=== PATIENT | male | born 1945 | race Caucasian/White ===

== ENCOUNTER 2017-08-29 03:12 | Inpatient (IN) | payer MEDICARE, MEDICAID ==
[2017-08-29] MEDS ORDERED: FUROSEMIDE INJ/PF 40 MG/4 ML SDV IV ONE (04:13)
[2017-08-29] MEDS ORDERED: OXYCODONE-ACETAMINOPHEN 5-325 MG TABLET PO ONE (04:13)
--- NOTE | 2017-08-29 04:18 | ER Document Report ---
ED General - General Chief Complaint: Swelling of Lower Extremity Stated Complaint: SWELLING Time Seen by Provider: 08/29/17 03:58 Notes: Patient is a 72-year-old male who presents with complaint of diffuse edema. Family says he first noticed that he was developing some edema around Father's Day but in the last couple days it has become severe. Today at this point where he is feeling short of breath and cannot lay down. She wears III and F liters of oxygen at home. When he arrived he was breathing heavily with that therefore his oxygen was increased and this is helped some. He did see his [employer] leadership yesterday morning, Dr. Guardado, who gave him some sort of "shot" . He is unsure what it is. He status post help with his edema but he is only gotten worse. Spine care doctor is Dr. Bennett. Denies any fevers or infections. Said tonight he woke up after nap and had a headache. He does take oxycodone 3 times a day but did not take it since this morning. He is also short of breath when he woke up. Suspect he is most likely hypoxic at that time. He denies any focal weakness or numbness. He complains of some indigestion and epigastric abdominal pain which she has had for a long time. He also has constipation. No previous history of PE and DVT. TRAVEL OUTSIDE OF THE [place] IN LAST 30 DAYS: No - Related Data Allergies/Adverse Reactions: strawberry [[place]] Allergy (Unknown, Verified 10/31/13 08:36) morphine [Morphine] Adverse Reaction (Mild, Verified 10/31/13 08:36) redness to face Past Medical History - Social History Smoking Status: Never Smoker Chew tobacco use (# tins/day): No Frequency of alcohol use: None Drug Abuse: None Family History: Reviewed & Not Pertinent Patient has suicidal ideation: No Patient has homicidal ideation: No - Past Medical History Cardiac Medical History: Reports: Hx Congestive Heart Failure, Hx Hypertension Denies: Hx Heart Attack Pulmonary Medical History: Reports: Hx COPD Denies: Hx Asthma, Hx Tuberculosis Neurological Medical History: Denies: Hx Cerebrovascular Accident, Hx Seizures Renal/ Medical History: Denies: Hx Peritoneal Dialysis GI Medical History: Reports: Hx Gastroesophageal Reflux Disease. Denies: Hx Hepatitis, Hx Hiatal Hernia, Hx Ulcer Psychiatric Medical History: Denies: Hx Depression Infectious Medical History: Denies: Hx Hepatitis Past Surgical History: Reports: Hx Vascular Surgery - filter for DVt. Denies: Hx Open Heart Surgery, Hx Pacemaker - Immunizations Hx Diphtheria, Pertussis, Tetanus Vaccination: Yes Hx Pneumococcal Vaccination: 12/18/12 Review of Systems - Review of Systems Notes: My Normal Review Basic REVIEW OF SYSTEMS: CONSTITUTIONAL : Denies fever, chills, or sweats. Denies recent illness. EENT: Denies eye, ear, throat, or mouth pain or symptoms. Denies nasal or sinus congestion. CARDIOVASCULAR: Denies chest pain. RESPIRATORY: Denies cough, cold, or chest congestion. Denies shortness of breath, difficulty breathing, or wheezing. GASTROINTESTINAL: Chronic epigastric abdominal pain. Denies nausea, vomiting, or diarrhea. GENITOURINARY: Denies difficulty urinating, painful urination, burning, frequency, or blood in urine. FEMALE GENITOURINARY: Denies vaginal bleeding, abnormal or irregular periods. MUSCULOSKELETAL: Edema in extremities. SKIN: Denies rash or skin lesions. NEUROLOGICAL: Denies altered mental status or loss of consciousness. Denies headache. Denies weakness or paralysis or loss of use of either side. Denies problems with gait or speech. Denies sensory or motor loss. ALL OTHER SYSTEMS REVIEWED AND NEGATIVE. Physical Exam - Vital signs Vitals: Resp Pulse Ox 16 96 08/29/17 03:33 08/29/17 03:33 - Notes Notes: General Appearance: Well nourished, alert, cooperative, no acute distress, no obvious discomfort. Vitals: reviewed, See vital signs table. Head: no swelling or tenderness to the head Eyes: PERRL, EOMI, Conjuctiva clear Mouth: No decreasd moisture Lungs: No wheezing, bilateral basal rales worse in the left side., No rhonci, No accessory muscle use, good air exchange bilaterally. Heart: Normal rate, Regular rythm, No murmur, no rub Abdomen: Normal BS, soft, No rigidity, obese abdomen with mild epigastric pain palpation., No guarding, no rebound, no abdominal masses, no organomegaly Extremities: strength 5/5 in all extremities, good pulses in all extremities, no swelling or tenderness in the extremities, 3+ bilateral lower extremity edema. Skin: warm, dry, appropriate color, no rash Neuro: speech clear, oriented x 3, normal affect, responds appropriately to questions. Course - Re-evaluation Re-evalutation: 08/29/17 05:29 Patient has significant edema causing him to require lower oxygen demand. I did give the patient dose of Lasix. He has been urinating quite a bit since then. Still has a very large amount of edema. I did speak with Dr. Bennett, his primary care physician, who agrees to admit the patient. Patient has normal cardiac enzymes. His EKG does not show any concerning findings. Chest x-ray is read as atelectasis however the patient has a lot of rales on lung auscultation to me appears he has more pulmonary vascular congestion on chest x- ray comparison to his previous x-rays. Patient does have history of DVT and is no longer anticoagulation. I suspect that his edema is related to fluid overload however will still obtain ultrasound. I did order the ultrasound and Dr. Bennett will follow up on the results of the venous Doppler. I did explain the plan to the family and they are agreeable with it. Dictation of this chart was performed using voice recognition software; therefore, there may be some unintended grammatical errors. 08/29/17 05:30 - Vital Signs Vital signs: Temp Pulse Resp BP Pulse Ox 98.4 F 17 134/99 H 95 08/29/17 03:54 08/29/17 05:02 08/29/17 04:01 08/29/17 05:02 - Laboratory Result Diagrams: 08/29/17 04:20 08/29/17 04:20 Laboratory results interpreted by me: 08/29/17 08/29/17 04:20 04:20 WBC 11.4 H RBC 4.23 L Hgb 12.1 L Hct 36.5 L RDW 15.1 H Carbon Dioxide 35 H Glucose 132 H Direct Bilirubin 0.5 H ALT 15 L - EKG Interpretation by Me Additional EKG results interpreted by me: 08/29/17 04:18 EKG is reviewed and interpreted by me. EKG shows sinus rhythm with rate of [address] segment elevation or depression. No ischemic T-wave inversions. AR interval and QTc intervals are within normal range. QRS duration is slightly prolonged. Old EKG for comparison is from January 12, 2014. Discharge - Discharge Clinical Impression: Hypoxemia Edema Qualifiers: Edema type: unspecified Qualified Code(s): R60.9 - Edema, unspecified Condition: Stable Disposition: ADMITTED INPATIENT Admitting Provider: [facility] Admitted: Telemetry Referrals: SONG BENNETT MD [Primary Care Provider] - Follow up as needed
[2017-08-29 04:36] LABS: ABSOLUTE BASOPHILS # (AUTO) 0.1 10^3/uL (0.0-0.2); ABSOLUTE EOSINOPHILS # (AUTO) 0.6 10^3/uL (0.0-0.6); ABSOLUTE LYMPHOCYTES (AUTO) 3.6 10^3/uL (0.5-4.7); BASOPHILS % (AUTO) 1.2 % (0-2); EOSINOPHILS % (AUTO) 5.4 % (0-6); HEMATOCRIT 36.5 % (37.9-51.0); HEMOGLOBIN 12.1 g/dL (13.5-17.0); LYMPHOCYTES % (AUTO) 31.4 % (13-45); MEAN CORPUSCULAR HEMOGLOBIN 28.6 pg (27.0-33.4); MEAN CORPUSCULAR HGB CONC 33.1 g/dL (32.0-36.0); MEAN CORPUSCULAR VOLUME 86 fl (80-97); PLATELET COUNT 285 10^3/uL (150-450); RED BLOOD COUNT 4.23 10^6/uL (4.35-5.55); RED CELL DISTRIBUTION WIDTH 15.1 % (11.5-14.0); TOTAL CELLS COUNTED % (AUTO) 100 %; WHITE BLOOD COUNT 11.4 10^3/uL (4.0-10.5)
--- NOTE | 2017-08-29 04:47 | RADIOLOGY REPORT (SQ) ---
Clinical History : dyspnea , Exam : Portable AP view of the chest 08/29/2017 4:12 AM CDT Comparisons : PA and lateral views of the chest January 12, 2014 Findings : There is patchy retrocardiac airspace these. The rest the lungs remain largely clear. The heart is normal in size. The mediastinal contours are distorted by patient rotation to the left and otherwise grossly normal. The thoracic spine is age appropriate. The shoulders are unremarkable. Limited evaluation of the upper abdomen demonstrates no gross abnormalities. Impression: Rotated exam with patchy retrocardiac airspace disease, likely atelectasis.
[2017-08-29 04:48] LABS: ALANINE AMINOTRANSFERASE 15 U/L (21-72); ALBUMIN 3.7 g/dL (3.5-5.0); ALKALINE PHOSPHATASE 103 U/L (38-126); ANION GAP 7 (5-19); ASPARTATE AMINO TRANSFERASE 39 U/L (17-59); BILIRUBIN,DIRECT 0.5 mg/dL (0.0-0.4); BILIRUBIN,TOTAL 0.5 mg/dL (0.2-1.3); BLOOD UREA NITROGEN 13 mg/dL (7-20); CALCIUM 8.6 mg/dL (8.4-10.2); CARBON DIOXIDE 35 mmol/L (22-30); CHLORIDE 99 mmol/L (98-107); GLUCOSE 132 mg/dL (75-110); POTASSIUM 3.9 mmol/L (3.6-5.0); SODIUM 140.7 mmol/L (137-145)
[2017-08-29 05:00] LABS: NT PRO BNP 195 pg/mL (5-900)
[2017-08-29 05:02] LABS: TROPONIN I < 0.012 ng/mL
--- NOTE | 2017-08-29 07:47 | EKG REPORT ---
SEVERITY:- ABNORMAL ECG - SINUS RHYTHM NONSPECIFIC INTRAVENTRICULAR CONDUCTION DELAY : Confirmed by: Rupa Rivas MD 29-Aug-2017 07:46:46
[2017-08-29] MEDS ORDERED: DEXTROSE 50%-WATER 25 GM/50 ML DISP.SYRIN IV PRN ×2 (08:19)
[2017-08-29] MEDS ORDERED: NALOXONE HCL INJ PRN (08:19)
[2017-08-29] MEDS ORDERED: GLUCAGON,HUMAN RECOMB 1 MG INJ IM PRN (08:19)
[2017-08-29] MEDS ORDERED: DEXTROSE 40% GEL 15 GM TUBE PO PRN ×2 (08:19)
[2017-08-29] MEDS ORDERED: INSULIN LISPRO 100 UNIT/ML 3 ML VIAL SUBCUT PRN (08:19)
[2017-08-29] MEDS: DOCUSATE SODIUM 100 MG CAPSULE PO SCH ×2 (09:28→17:33)
[2017-08-29] MEDS: ASPIRIN 81 MG TABLET, CHEWABLE PO SCH (09:28)
[2017-08-29] MEDS: CYANOCOBALAMIN (VITAMIN B-12) 1,000 MCG TABLET PO SCH (09:28)
[2017-08-29] MEDS: METFORMIN HCL 500 MG TABLET PO SCH ×4 (09:29→21:26)
[2017-08-29] MEDS: CARVEDILOL 3.125 MG TABLET PO SCH ×2 (09:29→21:27)
--- NOTE | 2017-08-29 09:43 | RADIOLOGY REPORT (SQ) ---
EXAM DESCRIPTION: VENOUS BILATERAL LOWER COMPLETED DATE/TIME: 08/29/2017 9:28 am REASON FOR STUDY: bilateral lower extremity edema COMPARISON: 10/31/2013. TECHNIQUE: Dynamic and static medrano scale and color images acquired of both lower extremity venous sy stems. Selected spectral images acquired with additional compression and augmentation maneuvers. Imag es stored on PACS. LIMITATIONS: Limited visualization due to patient's body habitus. FINDINGS: RIGHT LEG COMMON FEMORAL AND FEMORAL: Normal phasicity, compression and augmentation. No visualized echogenic m aterial on medrano scale. No defects on color images. POPLITEAL: Normal compression and augmentation. No visualized echogenic material on medrano scale. No de fects on color images. CALF VESSELS: Normal compression and augmentation. No visualized echogenic material on medrano scale. No defects on color image. GSV AND SSV: Normal compression. No visualized echogenic material on medrano scale. No defects on color images. ANY DEEP VENOUS INSUFFICIENCY: Not evaluated. ANY EVIDENCE OF POPLITEAL CYST: No. OTHER: No other significant finding. LEFT LEG COMMON FEMORAL AND FEMORAL: Normal phasicity, compression and augmentation. No visualized echogenic m aterial on medrano scale. No defects on color images. POPLITEAL: Normal compression and augmentation. No visualized echogenic material on medrano scale. No de fects on color images. CALF VESSELS: Normal compression and augmentation. No visualized echogenic material on medrano scale. No defects on color images. GSV AND SSV: Normal compression. No visualized echogenic material on medrano scale. No defects on color images. ANY DEEP VENOUS INSUFFICIENCY: Not evaluated. ANY EVIDENCE POPLITEAL CYST: No. OTHER: No other significant finding. IMPRESSION: LIMITED STUDY. NO EVIDENCE DVT OR SVT IN EITHER LEG. COMMENT: Preliminary report was called by the technologist to the referring clinician's office at th e time of patient visit. TECHNICAL DOCUMENTATION: JOB ID: [id number] [email or web address] Rights Reserved Reading location - IP/workstation name: [email or web address]
[2017-08-29] MEDS ORDERED: CARVEDILOL 3.125 MG TABLET PO SCH (10:00)
[2017-08-29] MEDS ORDERED: BUMETANIDE 1 MG TABLET PO SCH (10:00)
[2017-08-29] MEDS ORDERED: ASPIRIN 81 MG TABLET, ENT COATED PO SCH (10:00)
[2017-08-29] MEDS ORDERED: LINACLOTIDE PO SCH (10:00)
[2017-08-29 10:55] LABS: CREATINE KINASE MB 0.41 ng/mL (<4.55)
[2017-08-29 11:00] LABS: TROPONIN I < 0.012 ng/mL
--- NOTE | 2017-08-29 12:40 | PDOC H&P ---
History of Present Illness Admission Date/PCP: 08/29/17 05:36 SONG BENNETT MD Patient complains of: Leg swelling History of Present Illness: BRUCE KNOX is a 72 year old male This is a 72-year-old male with the history of the cardiomyopathy with the diastolic heart failure history of the coronary artery disease and a history of the recurrent DVT status post IVC filter was placed due to the ongoing bleeding [facility] the loss prevention research engineer as an outpatient seen couple of months back and suggest the following the 6 month Patient have ongoing problem with the leg swelling and is currently complaining of a little bit more short of breath with the history of the COPD and history of the tobacco abuse in the past and that patients not currently using the CPAP with underlying sleep disorders which patient does not like the CPAP and a history of this oxygen dependent COPD Patients came to the emergency department with the daughter yesterday because of the increasing the leg swelling for the last 3 days and according to the patient's patient was recently have a pain management change the pain medication and patient start feeling more symptoms In the emergency department patients have a leg swelling and some vascular congestion's and at this point decided to admit in the hospital for IV diuretics Since ultrasound for the lower extremity was done which is negative for any DVT When I saw the patient in the emergency department denied any chest pain no fever no chills Past Medical History Cardiac Medical History: Reports: Congestive Heart Failure, Hypertension Denies: Myocardial Infarction Pulmonary Medical History: Reports: Chronic Obstructive Pulmonary Disease (COPD) Denies: Asthma, Tuberculosis Neurological Medical History: Denies: Seizures Endocrine Medical History: Reports: Diabetes Mellitus Type 2 GI Medical History: Reports: Gastroesophageal Reflux Disease Denies: Hepatitis, Hiatal Hernia Musculoskeltal Medical History: Reports: Arthritis Psychiatric Medical History: Denies: Depression Hematology: Denies: Anemia, Sickle Cell Disease Past Surgical History Past Surgical History: Reports: Vascular Surgery - filter for DVt Denies: Pacemaker Social History Information Source: Patient Smoking Status: Never Smoker Frequency of Alcohol Use: Rare Hx Recreational Drug Use: No Hx Prescription Drug Abuse: No - Advance Directive Resuscitation Status: Full Code Family History Family History: Reviewed & Not Pertinent Parental Family History Reviewed: Yes Children Family History Reviewed: Yes Sibling(s) Family History Reviewed.: Yes Medication/Allergy Home Medications: Albuterol Sulfate [Proair HFA Inhalation Aerosol 8.5 gm MDI] 2 puff IH Q4HP PRN 08/29/17 Aspirin [Adult Low Dose Aspirin EC] 81 mg PO Q12 08/29/17 Bumetanide [Bumex 1 mg Tablet] 1 mg PO BID 08/29/17 Carvedilol [Coreg 3.125 mg Tablet] 3.125 mg PO Q12 08/29/17 Linaclotide [Linzess] 290 mcg PO Q6AM 08/29/17 Metformin HCl [Glucophage XR 500 mg Tablet] 500 mg PO QHS 08/29/17 Naloxone HCl [Evzio] 0.4 mg INJ ASDIR PRN 08/29/17 Oxycodone HCl 15 mg PO Q4HP PRN 08/29/17 Allergies/Adverse Reactions: strawberry [[place]] Allergy (Unknown, Verified 08/29/17 05:42) morphine [Morphine] Adverse Reaction (Mild, Verified 08/29/17 05:42) redness to face Review of Systems Constitutional: ABSENT: chills, fever(s), headache(s), weight gain, weight loss Eyes: ABSENT: visual disturbances Ears: ABSENT: hearing changes Cardiovascular: PRESENT: edema. ABSENT: chest pain, orthropnea, palpitations Respiratory: ABSENT: cough, hemoptysis Gastrointestinal: ABSENT: abdominal pain, constipation, diarrhea, hematemesis, hematochezia, nausea, vomiting Genitourinary: ABSENT: dysuria, hematuria Musculoskeletal: ABSENT: joint swelling Integumentary: ABSENT: rash, wounds Neurological: ABSENT: abnormal gait, abnormal speech, confusion, dizziness, focal weakness, syncope Psychiatric: ABSENT: anxiety, depression, homidical ideation, suicidal ideation Endocrine: ABSENT: cold intolerance, heat intolerance, menstrual abnormalities, polydipsia, polyuria Hematologic/Lymphatic: ABSENT: easy bleeding, easy bruising, lymphadenopathy Physical Exam Vital Signs: Temp Pulse Resp BP Pulse Ox 97.8 F 65 20 124/51 L 96 08/29/17 12:00 08/29/17 12:00 08/29/17 12:00 08/29/17 12:00 08/29/17 12:00 Intake & Output 08/28/17 08/29/17 08/30/17 06:59 06:59 06:59 Output Total 50 Balance -50 Weight 162.431 kg General appearance: PRESENT: no acute distress, morbidly obese, obese, well- developed, well-nourished Head exam: PRESENT: atraumatic, normocephalic Eye exam: PRESENT: conjunctiva pink, EOMI, PERRLA. ABSENT: scleral icterus Ear exam: PRESENT: normal external ear exam Mouth exam: PRESENT: moist, tongue midline Neck exam: PRESENT: full ROM. ABSENT: carotid bruit, JVD, lymphadenopathy, thyromegaly Respiratory exam: PRESENT: decreased breath sounds Cardiovascular exam: PRESENT: RRR. ABSENT: diastolic murmur, rubs, systolic murmur Pulses: PRESENT: normal dorsalis pedis pul, +2 pedal pulses bilateral Vascular exam: PRESENT: normal capillary refill GI/Abdominal exam: PRESENT: normal bowel sounds, soft. ABSENT: distended, guarding, mass, organolmegaly, rebound, tenderness Rectal exam: PRESENT: deferred Extremities exam: PRESENT: pedal edema Musculoskeletal exam: PRESENT: ambulatory Neurological exam: PRESENT: alert, awake, oriented to person, oriented to place , oriented to time, oriented to situation, CN II-XII grossly intact. ABSENT: motor sensory deficit Psychiatric exam: PRESENT: appropriate affect, normal mood. ABSENT: homicidal ideation, suicidal ideation Skin exam: PRESENT: dry, intact, warm. ABSENT: cyanosis, rash Results Laboratory Results: 08/29/17 08/29/17 09:52 09:52 Creatine Kinase 55 CK-MB (CK-2) 0.41 Troponin I < 0.012 Impressions: Venous Doppler Study 08/29/17 05:26 IMPRESSION: LIMITED STUDY. NO EVIDENCE DVT OR SVT IN EITHER LEG. Assessment & Plan - Diagnosis (1) Edema Qualifiers: Edema type: unspecified Qualified Code(s): R60.9 - Edema, unspecified Is this a current diagnosis for this admission?: Yes Plan: Most likely worsening the congestive heart failure versus ongoing edema with the status post IVC filter will try the patient on IV LasixOrder the 2D echocardiogram while patient does not have any echocardiogram done since [address] Geo Muñiz consult the cardiology (2) Recurrent deep vein thrombosis (DVT) Is this a current diagnosis for this admission?: Yes Plan: While patients have IVC filter and current ultrasound was negative for any DVT Name issue with the anticoagulation in the past and the COUNTS [facility] BEDS AT THE [facility] stop the anticoagulations and patient have a no issue with the bleeding after that (3) Hypertension Qualifiers: Hypertension type: essential hypertension Qualified Code(s): I10 - Essential (primary) hypertension Is this a current diagnosis for this admission?: Yes Plan: Continues to current medication (4) Coronary artery disease Qualifiers: Coronary Disease-Associated Artery/Lesion type: unspecified vessel or lesion type Is this a current diagnosis for this admission?: Yes Plan: Will rule out the acute coronary syndromes (5) Sleep apnea Qualifiers: Sleep apnea type: unspecified type Qualified Code(s): G47.30 - Sleep apnea , unspecified Is this a current diagnosis for this admission?: Yes Plan: Patient is not using the sleep machine (6) CHF (congestive heart failure) Qualifiers: Heart failure type: diastolic Heart failure chronicity: acute Qualified Code(s): I50.31 - Acute diastolic (congestive) heart failure Is this a current diagnosis for this admission?: Yes Plan: Continues to IV Lasix get the 2D echocardiogram (7) CKD (chronic kidney disease), stage III Is this a current diagnosis for this admission?: Yes Plan: Currently all stable (8) COPD (chronic obstructive pulmonary disease) Qualifiers: Emphysema type: unspecified Is this a current diagnosis for this admission?: Yes Plan: Continue some nebulizer treatments and continues to monitor - Time Time Spent: 30 to 50 Minutes Medications reviewed and adjusted accordingly: Yes Anticipated discharge: Home Within: Other - Inpatient Certification Medical Necessity: Need Close Monitoring Due to Risk of Patient Decompensation Post Hospital 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
[2017-08-29] MEDS ORDERED: FUROSEMIDE INJ/PF 40 MG/4 ML SDV IV SCH (14:00)
[2017-08-29] MEDS ORDERED: IPRATROPIUM/ALBUTEROL 0.5-2.5 MG/3 ML AMPUL NEB PRN (14:11)
[2017-08-29 15:45] LABS: CREATINE KINASE MB 0.41 ng/mL (<4.55)
[2017-08-29 16:01] LABS: TROPONIN I < 0.012 ng/mL
[2017-08-29] MEDS: OXYCODONE HCL IR 5 MG TABLET PO PRN (17:34)
[2017-08-29] MEDS: FUROSEMIDE INJ/PF 40 MG/4 ML SDV IV SCH (17:35)
[2017-08-29 19:12] LABS: APPEARANCE,URINE CLEAR; BILIRUBIN,URINE NEGATIVE (NEGATIVE); COLOR,URINE YELLOW; GLUCOSE, URINE NEGATIVE (NEGATIVE); KETONES,URINE NEGATIVE (NEGATIVE); LEUKOCYTE ESTERASE,URINE NEGATIVE (NEGATIVE); NITRITE,URINE NEGATIVE (NEGATIVE); PROTEIN,URINE NEGATIVE (NEGATIVE)
[2017-08-29 21:22] LABS: CREATINE KINASE MB 0.34 ng/mL (<4.55)
[2017-08-29] MEDS ORDERED: (PENDING PHARMACY ID) (Metformin Hcl [Glucophage Xr 500 Mg Tablet] 500 MG) PO SCH (22:00)
[2017-08-29 22:26] LABS: TROPONIN I < 0.012 ng/mL
[2017-08-30] MEDS: FUROSEMIDE INJ/PF 40 MG/4 ML SDV IV SCH ×5 (01:25→23:31)
[2017-08-30 05:28] LABS: HEMATOCRIT 34.8 % (37.9-51.0); HEMOGLOBIN 11.7 g/dL (13.5-17.0); MEAN CORPUSCULAR HEMOGLOBIN 28.5 pg (27.0-33.4); MEAN CORPUSCULAR HGB CONC 33.7 g/dL (32.0-36.0); MEAN CORPUSCULAR VOLUME 85 fl (80-97); PLATELET COUNT 198 10^3/uL (150-450); RED BLOOD COUNT 4.11 10^6/uL (4.35-5.55); RED CELL DISTRIBUTION WIDTH 15.1 % (11.5-14.0); WHITE BLOOD COUNT 12.9 10^3/uL (4.0-10.5)
[2017-08-30 05:33] LABS: ABSOLUTE LYMPHOCYTES# (MANUAL) 3.2 10^3/uL (0.5-4.7); ABSOLUTE MONOCYTES # (MANUAL) 0.9 10^3/uL (0.1-1.4); ABSOLUTE NEUTROPHILS# (MANUAL) 8.1 10^3/uL (1.7-8.2); ANION GAP 6 (5-19); BAND NEUTROPHILS % (MANUAL) 1 % (3-5); BASOPHILS % (MANUAL) 1 % (0-2); BLOOD UREA NITROGEN 17 mg/dL (7-20); CALCIUM 8.3 mg/dL (8.4-10.2); CARBON DIOXIDE 36 mmol/L (22-30); CHLORIDE 96 mmol/L (98-107); EOSINOPHILS % (MANUAL) 4 % (0-6); GLUCOSE 117 mg/dL (75-110); LYMPHOCYTES % (MANUAL) 23 % (13-45); MONOCYTES % (MANUAL) 7 % (3-13); POTASSIUM 4.2 mmol/L (3.6-5.0); SEGMENTED NEUTROPHILS % (MAN) 62 % (42-78); SODIUM 138.4 mmol/L (137-145); TOTAL CELLS COUNTED 100
[2017-08-30 05:36] LABS: PLATELET CLUMPS PRESENT; PLATELET COMMENT ADEQUATE; RBC MORPHOLOGY COMMENT NORMO-CYTIC/CHROMIC
[2017-08-30] MEDS: METFORMIN HCL 500 MG TABLET PO SCH ×4 (07:53→21:32)
[2017-08-30] MEDS: ASPIRIN 81 MG TABLET, CHEWABLE PO SCH (07:53)
[2017-08-30] MEDS: OXYCODONE HCL IR 5 MG TABLET PO PRN ×3 (07:53→19:42)
[2017-08-30] MEDS: CARVEDILOL 3.125 MG TABLET PO SCH ×2 (10:18→21:32)
[2017-08-30] MEDS: CYANOCOBALAMIN (VITAMIN B-12) 1,000 MCG TABLET PO SCH (10:18)
[2017-08-30] MEDS: DOCUSATE SODIUM 100 MG CAPSULE PO SCH ×2 (10:18→18:11)
--- NOTE | 2017-08-30 12:51 | PDOC PROGRESS REPORT ---
Subjective Progress Note for:: 08/30/17 Subjective:: Patient is currently doing fair Swelling is pretty much same Patient's denied any chest pain denied any shortness of the breath Patient's not able to wear any CPAP Reason For Visit: CHF Physical Exam Vital Signs: Temp Pulse Resp BP Pulse Ox 98.1 F 74 22 H 115/60 96 08/30/17 11:49 08/30/17 11:49 08/30/17 11:49 08/30/17 11:49 08/30/17 11:49 Intake & Output 08/29/17 08/30/17 08/31/17 06:59 06:59 06:59 Intake Total 1136 Output Total 1850 Balance -714 Weight 162.5 kg General appearance: PRESENT: no acute distress, well-developed, well-nourished Head exam: PRESENT: atraumatic, normocephalic Eye exam: PRESENT: conjunctiva pink, EOMI, PERRLA. ABSENT: scleral icterus Ear exam: PRESENT: normal external ear exam Mouth exam: PRESENT: moist, tongue midline Neck exam: PRESENT: full ROM. ABSENT: carotid bruit, JVD, lymphadenopathy, thyromegaly Respiratory exam: PRESENT: clear to auscultation mona Cardiovascular exam: PRESENT: RRR. ABSENT: diastolic murmur, rubs, systolic murmur Pulses: PRESENT: normal dorsalis pedis pul, +2 pedal pulses bilateral Vascular exam: PRESENT: normal capillary refill GI/Abdominal exam: PRESENT: normal bowel sounds, soft. ABSENT: distended, guarding, mass, organolmegaly, rebound, tenderness Rectal exam: PRESENT: deferred Extremities exam: PRESENT: pedal edema Neurological exam: PRESENT: alert, awake, oriented to person, oriented to place , oriented to time, oriented to situation, CN II-XII grossly intact. ABSENT: motor sensory deficit Psychiatric exam: PRESENT: appropriate affect, normal mood. ABSENT: homicidal ideation, suicidal ideation Skin exam: PRESENT: dry, intact, warm. ABSENT: cyanosis, rash Results Laboratory Results: 08/30/17 04:14 08/30/17 04:14 08/29/17 08/30/17 08/30/17 18:15 04:14 04:14 WBC 12.9 H RBC 4.11 L Hgb 11.7 L Hct 34.8 L MCV 85 MCH 28.5 MCHC 33.7 RDW 15.1 H Plt Count 198 Seg Neutrophils % Not Reportable Lymphocytes % Not Reportable Monocytes % Not Reportable Eosinophils % Not Reportable Basophils % Not Reportable Absolute Neutrophils Not Reportable Absolute Lymphocytes Not Reportable Absolute Monocytes Not Reportable Absolute Eosinophils Not Reportable Absolute Basophils Not Reportable Sodium 138.4 Potassium 4.2 Chloride 96 L Carbon Dioxide 36 H Anion Gap 6 BUN 17 Creatinine 1.03 Est GFR ( Amer) > 60 Est GFR (Non-Af Amer) > 60 Glucose 117 H Calcium 8.3 L Urine Color YELLOW Urine Appearance CLEAR Urine pH 6.0 Ur Specific [place] 1.010 Urine Protein NEGATIVE Urine Glucose (UA) NEGATIVE Urine Ketones NEGATIVE Urine Blood NEGATIVE Urine Nitrite NEGATIVE Ur Leukocyte Esterase NEGATIVE Urine WBC (Auto) 1 08/29/17 08/29/17 08/29/17 09:52 09:52 14:57 Creatine Kinase 55 50 L CK-MB (CK-2) 0.41 Troponin I < 0.012 08/29/17 08/29/17 08/29/17 14:57 20:23 20:23 Creatine Kinase 50 L CK-MB (CK-2) 0.41 0.34 Troponin I < 0.012 < 0.012 Impressions: Venous Doppler Study 08/29/17 05:26 IMPRESSION: LIMITED STUDY. NO EVIDENCE DVT OR SVT IN EITHER LEG. Assessment & Plan - Diagnosis (1) Edema Qualifiers: Edema type: unspecified Qualified Code(s): R60.9 - Edema, unspecified Is this a current diagnosis for this admission?: Yes Plan: Most likely underlying congestive heart failure with status post IVC filter with chronic edema in the leg (2) Recurrent deep vein thrombosis (DVT) Is this a current diagnosis for this admission?: Yes Plan: Currently patient's ultrasound is all negative (3) Hypertension Qualifiers: Hypertension type: essential hypertension Qualified Code(s): I10 - Essential (primary) hypertension Is this a current diagnosis for this admission?: Yes Plan: Continues to current medication (4) Coronary artery disease Qualifiers: Coronary Disease-Associated Artery/Lesion type: unspecified vessel or lesion type Is this a current diagnosis for this admission?: Yes Plan: Will rule out the acute coronary syndromes (5) Sleep apnea Qualifiers: Sleep apnea type: unspecified type Qualified Code(s): G47.30 - Sleep apnea , unspecified Is this a current diagnosis for this admission?: Yes Plan: Patient is not using the sleep machine (6) CHF (congestive heart failure) Qualifiers: Heart failure type: diastolic Heart failure chronicity: acute Qualified Code(s): I50.31 - Acute diastolic (congestive) heart failure Is this a current diagnosis for this admission?: Yes Plan: Continues to IV Lasix get the 2D echocardiogram (7) CKD (chronic kidney disease), stage III Is this a current diagnosis for this admission?: Yes Plan: Currently all stable (8) COPD (chronic obstructive pulmonary disease) Qualifiers: Emphysema type: unspecified Is this a current diagnosis for this admission?: Yes Plan: Continue some nebulizer treatments and continues to monitor - Time Time Spent with patient: 15-24 minutes Medications reviewed and adjusted accordingly: Yes Anticipated discharge: Home Within: Other - Inpatient Certification Medical Necessity: Need Close Monitoring Due to Risk of Patient Decompensation 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
[2017-08-30] MEDS: CEPHALEXIN 500 MG CAPSULE PO SCH ×2 (13:51→21:32)
--- NOTE | 2017-08-30 20:34 | PDOC PROGRESS REPORT ---
Subjective Progress Note for:: 08/30/17 Subjective:: Patient however worried about increasing pedal edema. Patient thinks that his IVC filter may have clogged up. Patient seems to be doing better with gradual improvement. Pt is denying any chest arm or neck discomfort. Patient denying any PND, orthopnea. Patient does have shortness of breath on minimal exertion. Patient denied any sustained palpitations, dizziness, syncope, near syncope. Patient denying any fever chills. Patient denying any other significant discomfort. Review of systems: Rest review of systems negative. Medications: Medications have been reviewed. Reason For Visit: CHF Physical Exam Vital Signs: Temp Pulse Resp BP Pulse Ox 99.0 F 73 18 131/59 H 92 08/30/17 19:44 08/30/17 19:44 08/30/17 19:44 08/30/17 19:44 08/30/17 19:44 Intake & Output 08/29/17 08/30/17 08/31/17 06:59 06:59 06:59 Intake Total 1136 1099 Output Total 1850 900 Balance -714 199 Weight 162.5 kg Exam: GENERAL: well-nourished and in no acute distress. Alert and oriented x3 HEAD: Atraumatic, normocephalic. EYES: Pupils equal round and reactive to light, extraocular movements intact, sclera anicteric, conjunctiva are normal. ENT: TMs normal, nares patent, oropharynx clear without exudates. Moist mucous membranes. No oral ulcerations or bleeding gums noted NECK: supple without lymphadenopathy. Trachea is central. No cervical or axillary lymphadenopathy noted. Carotids are 2+, JVD WNL LUNGS: Respiration seems nonlabored, no significant accessory muscle action noted. Bibasilar fine crackles noted. No wheezes rales or rhonchi noted. No significant dullness noted on percussion. CHEST: Palpation of the chest wall shows no significant chest wall tenderness. 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 ABDOMEN: Soft, no significant tenderness appreciated, normoactive bowel sounds. No guarding, no rebound. No rigidity noted . No masses appreciated. EXTREMITIES: Pedal pulses are 1-2+, no calf tenderness noted. No clubbing or cyanosis. 3+ pedal edema noted NEUROLOGICAL: Focused neurological exam showed no significant neurologic deficit. Normal speech, no focal weakness appreciated. PSYCH: Normal mood, normal affect. Judgment and insight within normal limits. SKIN: No significant ecchymosis, skin is noted to be warm. MUSCULOSKELETAL EXAM: No significant acute joint swelling noted. Results Laboratory Results: 08/30/17 04:14 08/30/17 04:14 08/30/17 08/30/17 04:14 04:14 WBC 12.9 H RBC 4.11 L Hgb 11.7 L Hct 34.8 L MCV 85 MCH 28.5 MCHC 33.7 RDW 15.1 H Plt Count 198 Seg Neutrophils % Not Reportable Lymphocytes % Not Reportable Monocytes % Not Reportable Eosinophils % Not Reportable Basophils % Not Reportable Absolute Neutrophils Not Reportable Absolute Lymphocytes Not Reportable Absolute Monocytes Not Reportable Absolute Eosinophils Not Reportable Absolute Basophils Not Reportable Sodium 138.4 Potassium 4.2 Chloride 96 L Carbon Dioxide 36 H Anion Gap 6 BUN 17 Creatinine 1.03 Est GFR ( Amer) > 60 Est GFR (Non-Af Amer) > 60 Glucose 117 H Calcium 8.3 L 08/29/17 08/29/17 08/29/17 09:52 09:52 14:57 Creatine Kinase 55 50 L CK-MB (CK-2) 0.41 Troponin I < 0.012 08/29/17 08/29/17 08/29/17 14:57 20:23 20:23 Creatine Kinase 50 L CK-MB (CK-2) 0.41 0.34 Troponin I < 0.012 < 0.012 EKG Comments: Showed sinus rhythm without any significant cardiac dysrhythmia. Impressions: Venous Doppler Study 08/29/17 05:26 IMPRESSION: LIMITED STUDY. NO EVIDENCE DVT OR SVT IN EITHER LEG. Assessment & Plan - Diagnosis (1) CHF (congestive heart failure) Qualifiers: Heart failure type: diastolic Heart failure chronicity: acute Qualified Code(s): I50.31 - Acute diastolic (congestive) heart failure Is this a current diagnosis for this admission?: Yes (2) Edema Qualifiers: Edema type: localized Qualified Code(s): R60.0 - Localized edema Is this a current diagnosis for this admission?: Yes (3) Coronary artery disease Qualifiers: Coronary Disease-Associated Artery/Lesion type: unspecified vessel or lesion type Is this a current diagnosis for this admission?: Yes (4) Hypertension Qualifiers: Hypertension type: essential hypertension Qualified Code(s): I10 - Essential (primary) hypertension Is this a current diagnosis for this admission?: Yes (5) Sleep apnea Qualifiers: Sleep apnea type: unspecified type Qualified Code(s): G47.30 - Sleep apnea , unspecified Is this a current diagnosis for this admission?: Yes (6) CKD (chronic kidney disease), stage III Is this a current diagnosis for this admission?: Yes (7) COPD (chronic obstructive pulmonary disease) Qualifiers: Emphysema type: unspecified Is this a current diagnosis for this admission?: Yes (8) Obesity Qualifiers: Obesity type: unspecified obesity type Obesity classification: unspecified obesity classification Is this a current diagnosis for this admission?: Yes - Notes Notes: CHF: Predominantly right-sided and secondary to diastolic dysfunction. [place] to be acute on chronic. 2D echo shows LVEF WNL with grade 2 diastolic dysfunction. RV noted to be moderately enlarged. Continue with IV diuretic and other supportive management. Treat with salt and fluid restriction as well. Patient will benefit from CHF pathway education. Edema: Localized most likely related to right-sided heart failure with contribution from possible venous obstruction, dependency, venous insufficiency etc. combining. CAD: Currently symptomatically stable. Sleep apnea syndrome: I am told by his primary care physician that patient is noncompliant. Patient will benefit from reinstitution of CPAP therapy. Hypertension: Currently stable. Blood pressure goal is 140/90 or less. Chronic kidney disease: Currently stable. COPD: Currently stable Obesity: Patient has significant obesity. He will benefit from gradual weight loss. - Time Time with patient: Greater than 35 minutes - CODE STATUS was discussed, patient remains full code. Surrogate decision-maker patient's daughter. Multiple medical problems were addressed. More than 50% of the time spent coordinating care, discussing management plans with involved caregivers. Management plans discussed with involved personnels. Medical decision making was of moderate to high complexity, patient's has multiple comorbidities. Medications reviewed and adjusted accordingly: Yes
[2017-08-31 05:09] LABS: BLOOD UREA NITROGEN 18 mg/dL (7-20); CALCIUM 8.5 mg/dL (8.4-10.2); CHLORIDE 92 mmol/L (98-107); GLUCOSE 123 mg/dL (75-110); POTASSIUM 3.6 mmol/L (3.6-5.0); SODIUM 138.9 mmol/L (137-145)
[2017-08-31 05:22] LABS: ANION GAP 6 (5-19)
[2017-08-31 05:23] LABS: CARBON DIOXIDE 41 mmol/L (22-30)
[2017-08-31] MEDS: CEPHALEXIN 500 MG CAPSULE PO SCH ×3 (06:18→21:40)
[2017-08-31] MEDS: OXYCODONE HCL IR 5 MG TABLET PO PRN ×4 (06:18→21:40)
[2017-08-31] MEDS: FUROSEMIDE INJ/PF 40 MG/4 ML SDV IV SCH ×3 (06:18→17:36)
[2017-08-31] MEDS: ASPIRIN 81 MG TABLET, CHEWABLE PO SCH (08:38)
[2017-08-31] MEDS: METFORMIN HCL 500 MG TABLET PO SCH ×4 (08:39→21:40)
[2017-08-31] MEDS: CARVEDILOL 3.125 MG TABLET PO SCH ×2 (10:16→21:40)
[2017-08-31] MEDS: DOCUSATE SODIUM 100 MG CAPSULE PO SCH ×2 (10:16→17:36)
[2017-08-31] MEDS: CYANOCOBALAMIN (VITAMIN B-12) 1,000 MCG TABLET PO SCH (10:17)
--- NOTE | 2017-08-31 12:30 | PDOC PROGRESS REPORT ---
Subjective Progress Note for:: 08/31/17 Subjective:: Patient seems to be doing better with gradual improvement. Pt is denying any chest arm or neck discomfort. Patient denying any PND, orthopnea. Patient does have shortness of breath on minimal exertion. Patient denied any sustained palpitations, dizziness, syncope, near syncope. Patient denying any fever chills. Patient denying any other significant discomfort. Patient still has significant pedal edema but improved with keeping his legs elevated. Review of systems: Rest review of systems negative. Medications: Medications have been reviewed. Reason For Visit: CHF Physical Exam Vital Signs: Temp Pulse Resp BP Pulse Ox 98.2 F 69 18 110/41 L 92 08/31/17 11:52 08/31/17 11:52 08/31/17 11:52 08/31/17 11:52 08/31/17 11:52 Intake & Output 08/30/17 08/31/17 09/01/17 06:59 06:59 06:59 Intake Total 1136 2039 Output Total 1850 3275 Balance -714 -1236 Weight 162.5 kg 164 kg Exam: GENERAL: well-nourished and in no acute distress. Alert and oriented x3 HEAD: Atraumatic, normocephalic. EYES: Pupils equal round and reactive to light, extraocular movements intact, sclera anicteric, conjunctiva are normal. ENT: TMs normal, nares patent, oropharynx clear without exudates. Moist mucous membranes. No oral ulcerations or bleeding gums noted NECK: supple without lymphadenopathy. Trachea is central. No cervical or axillary lymphadenopathy noted. Carotids are 2+, JVD WNL LUNGS: Respiration seems nonlabored, no significant accessory muscle action noted. Few bibasilar crackles are noted. No wheezes rales or rhonchi noted. No significant dullness noted on percussion. CHEST: Palpation of the chest wall shows no significant chest wall tenderness. 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 ABDOMEN: Soft, no significant tenderness appreciated, normoactive bowel sounds. No guarding, no rebound. No rigidity noted . No masses appreciated. EXTREMITIES: Pedal pulses are 1-2+, no calf tenderness noted. No clubbing or cyanosis. 2+ pedal edema noted NEUROLOGICAL: Focused neurological exam showed no significant neurologic deficit. Normal speech, no focal weakness appreciated. PSYCH: Normal mood, normal affect. Judgment and insight within normal limits. SKIN: No significant ecchymosis, skin is noted to be warm. MUSCULOSKELETAL EXAM: No significant acute joint swelling noted. Results Laboratory Results: 08/30/17 04:14 08/31/17 04:17 08/31/17 04:17 Sodium 138.9 Potassium 3.6 Chloride 92 L Carbon Dioxide 41 H* Anion Gap 6 BUN 18 Creatinine 1.09 Est GFR ( Amer) > 60 Est GFR (Non-Af Amer) > 60 Glucose 123 H Calcium 8.5 08/29/17 08/29/17 08/29/17 09:52 09:52 14:57 Creatine Kinase 55 50 L CK-MB (CK-2) 0.41 Troponin I < 0.012 08/29/17 08/29/17 08/29/17 14:57 20:23 20:23 Creatine Kinase 50 L CK-MB (CK-2) 0.41 0.34 Troponin I < 0.012 < 0.012 EKG Comments: Patient maintaining stable heart rhythm without any significant cardiac dysrhythmia Impressions: Venous Doppler Study 08/29/17 05:26 IMPRESSION: LIMITED STUDY. NO EVIDENCE DVT OR SVT IN EITHER LEG. Assessment & Plan - Diagnosis (1) CHF (congestive heart failure) Qualifiers: Heart failure type: diastolic Heart failure chronicity: acute Qualified Code(s): I50.31 - Acute diastolic (congestive) heart failure Is this a current diagnosis for this admission?: Yes (2) Edema Qualifiers: Edema type: localized Qualified Code(s): R60.0 - Localized edema Is this a current diagnosis for this admission?: Yes (3) Coronary artery disease Qualifiers: Coronary Disease-Associated Artery/Lesion type: unspecified vessel or lesion type Is this a current diagnosis for this admission?: Yes (4) Hypertension Qualifiers: Hypertension type: essential hypertension Qualified Code(s): I10 - Essential (primary) hypertension Is this a current diagnosis for this admission?: Yes (5) Sleep apnea Qualifiers: Sleep apnea type: unspecified type Qualified Code(s): G47.30 - Sleep apnea , unspecified Is this a current diagnosis for this admission?: Yes (6) CKD (chronic kidney disease), stage III Is this a current diagnosis for this admission?: Yes (7) COPD (chronic obstructive pulmonary disease) Qualifiers: Emphysema type: unspecified Is this a current diagnosis for this admission?: Yes (8) Obesity Qualifiers: Obesity type: unspecified obesity type Obesity classification: unspecified obesity classification Is this a current diagnosis for this admission?: Yes - Notes Notes: No significant change in plans. Continue with supportive care with IV/p.o. diuretics. Will switch patient to Demadex for better absorption. Discussed that since patient has predominantly right-sided heart failure, he will benefit from weight loss and reinstitution of CPAP therapy. CHF: Predominantly right-sided and secondary to diastolic dysfunction. 2D echo shows LVEF WNL with grade 2 diastolic dysfunction. RV noted to be moderately enlarged. Continue with IV diuretic and other supportive management. Edema: Localized most likely related to right-sided heart failure with contribution from possible venous obstruction, dependency, venous insufficiency etc. combining. CAD: Currently symptomatically stable. Patient claims that he is being followed by Dr. Guardado. Sleep apnea syndrome: I am told by his primary care physician that patient is noncompliant. Patient will benefit from reinstitution of CPAP therapy. Hypertension: Currently stable. Blood pressure goal is 140/90 or less. Chronic kidney disease: Currently stable. COPD: Currently stable Obesity: Patient has significant obesity. He will benefit from gradual weight loss. - Time Time with patient: Greater than 35 minutes - CODE STATUS was discussed, patient remains full code. Surrogate decision-maker unchanged. Multiple medical problems were addressed. More than 50% of the time spent coordinating care, discussing management plans with involved caregivers. Management plans discussed with involved personnels. Medical decision making was of moderate to high complexity, patient's has multiple comorbidities. Medications reviewed and adjusted accordingly: Yes
--- NOTE | 2017-08-31 16:51 | PDOC PROGRESS REPORT ---
Subjective Progress Note for:: 08/31/17 Subjective:: Patient was seen by the bedside, he has no new complaints Reason For Visit: CHF Physical Exam Vital Signs: Temp Pulse Resp BP Pulse Ox 98.5 F 74 19 124/48 L 96 08/31/17 16:00 08/31/17 16:00 08/31/17 16:00 08/31/17 16:00 08/31/17 16:00 Intake & Output 08/30/17 08/31/17 09/01/17 06:59 06:59 06:59 Intake Total 1136 2039 Output Total 1850 0855 Balance -714 -1236 Weight 162.5 kg 164 kg General appearance: PRESENT: no acute distress Eye exam: PRESENT: PERRLA Respiratory exam: PRESENT: clear to auscultation mona Cardiovascular exam: PRESENT: +S1, +S2 GI/Abdominal exam: PRESENT: soft Neurological exam: PRESENT: alert Results Laboratory Results: 08/30/17 04:14 08/31/17 04:17 08/31/17 04:17 Sodium 138.9 Potassium 3.6 Chloride 92 L Carbon Dioxide 41 H* Anion Gap 6 BUN 18 Creatinine 1.09 Est GFR ( Amer) > 60 Est GFR (Non-Af Amer) > 60 Glucose 123 H Calcium 8.5 08/29/17 08/29/17 08/29/17 09:52 09:52 14:57 Creatine Kinase 55 50 L CK-MB (CK-2) 0.41 Troponin I < 0.012 08/29/17 08/29/17 08/29/17 14:57 20:23 20:23 Creatine Kinase 50 L CK-MB (CK-2) 0.41 0.34 Troponin I < 0.012 < 0.012 Impressions: Venous Doppler Study 08/29/17 05:26 IMPRESSION: LIMITED STUDY. NO EVIDENCE DVT OR SVT IN EITHER LEG. Assessment & Plan - Diagnosis (1) Congestive heart failure Qualifiers: Heart failure type: combined systolic and diastolic Heart failure chronicity: acute Qualified Code(s): I50.41 - Acute combined systolic ( congestive) and diastolic (congestive) heart failure Is this a current diagnosis for this admission?: Yes Plan: Patient continues treatment (2) CHF (congestive heart failure) Qualifiers: Heart failure type: diastolic Heart failure chronicity: acute Qualified Code(s): I50.31 - Acute diastolic (congestive) heart failure Is this a current diagnosis for this admission?: Yes
[2017-08-31] MEDS ORDERED: NA PHOS,M-B/NA PHOS,DI-BA (ADULT) 133 ML ENEMA PR ONE (20:00)
--- NOTE | 2017-08-31 22:10 | CONSULTATION REPORT E ---
Consultation Report NAME: BRUCE KNOX : 1945 AGE: 72Y DATE: 08/29/2017 530 A TO: HANNAH ALEJO M.D. FROM: SONG BENNETT M.D. Requesting Physician NOTE: On 08/29/2017, the patient was seen at 9:00 a.m. 60 minutes spent on the patient, more than 50% of time was spent on direct patient care. REASON FOR CONSULTATION: Increasing leg edema. The patient is a morbidly obese 72-year-old male with known history of left ventricular diastolic heart failure, hypertension, history of coronary artery disease with no evidence of KS, history of COPD on nasal O2, and history of sleep apnea, who does not use CPAP. He states for the past 3 to 4 weeks, has been having increasing leg edema. He saw his media services specialist, Dr. Guardado, a few days ago, and he gave him an injection and the swelling was slightly better, but it recurred and increased over the last 3 days. He has chronic orthopnea, but no new changes. There is no PND. There is no chest pain or discomfort. His baseline shortness of breath is walking about 50 yards. He does not walk much because of his chronic back pain. He denies any palpitations or syncope. PAST MEDICAL HISTORY: He has a history of recurrent DVT and history of bleeding problems on anticoagulation. Hence, the patient has an IVC filter for his DVT. He has a history of past congestive heart failure, history of hypertension, history of coronary artery disease. No history of KS. No history of cardiac arrhythmia. No history of atrial fibrillation or ventricular arrhythmias. He has a history of COPD on home oxygen. There is no history of pulmonary embolism. He has a history of sleep apnea, but does not use his BiPAP. He has a history of diabetes mellitus type 2, he states diet controlled. He also has acid reflux and history of arthritis and chronic back pain. He has no history of TIA or CVA. PAST SURGICAL HISTORY: Bilateral cataract surgery, IVC filter placement. SOCIAL HISTORY: He has never smoked. There is no history of ETOH abuse. FAMILY HISTORY: Positive for hypertension. Negative for coronary artery disease. MEDICATIONS: 1. Aspirin 81 mg p.o. daily. 2. Coreg 3.125 mg p.o. q.12 hours. 3. Cephalexin monohydrate 500 mg p.o. q.8 hours. 4. Cyanocobalamin 1000 mcg p.o. daily. 5. He is on hypoglycemic precautions with glucose 15 grams or 30 grams for hypoglycemia. 6. Dextrose 50%, 12.5 grams and 25 grams IV as needed for hypoglycemia. 7. Glucagon 1 mg intramuscularly p.r.n. hypoglycemia. 8. *------* t.i.d. *------* insulin coverage. 9. DuoNeb nebulizer treatment 3 mL q.6 hours as needed. 10. Linzess 290 mg p.o. every morning. 11. Metformin 500 mg p.o. twice daily and 250 mg p.o. q.12 hours. 12. Naloxone 0.4 mg injection as needed. 13. Oxycodone 15 mg p.o. q.4 hours as needed. DISPOSITION: The patient is full code. He says that his daughter is his healthcare power of tax attorney. REVIEW OF SYSTEMS: CONSTITUTIONAL: Denies fever, chills, or rigors. Complains of generalized fatigue and weakness. HEAD: No headaches or head injury. EYES: No evidence of amblyopia or diplopia. No evidence of amaurosis fugax. EARS: No significant hearing loss. No history of tinnitus. No history of recurrent ear infection. NOSE: No evidence of hay fever. No history of nosebleeds. No history of nasal polyps. MOUTH: No history of altered taste sensation. No ulcers in the mouth. No bleeding from gums. THROAT: No odynophagia or dysphagia. No evidence of recurrent sore throats. SKIN: No history of pruritus. No history of ecchymosis. No yellowish discoloration of the skin. No history of psoriasis. No evidence of eczema. NECK: No enlarged neck lymph nodes. No neck pain. No goiter. LUNGS: History of COPD present, on home oxygen. No recent symptoms of cough or sputum production. He has chronic orthopnea. There is no history of pulmonary embolism or recurrent DVTs. He has history of sleep apnea and does not use CPAP. No history of hemoptysis or pleuritic chest pain. CARDIAC: History of coronary artery disease. No history of KS. No anginal symptoms. Past history of congestive heart failure, most likely diastolic heart failure. He has no history of cardiac arrhythmia, no history of PND. He has chronic orthopnea. Increasing leg edema, it is 3+ now. No history of syncope. No history of rheumatic fever. History of hypertension. The patient claims it is well controlled. GASTROINTESTINAL: History of constipation present. The patient is on Linzess. No history of GERD. No history of peptic ulcer disease. No history of GI bleed. No history of fatty food intolerance. No history of hepatitis. No history of cirrhosis of the liver. No jaundice. No altered bowel movements except for constipation, which is being corrected by Linzess. He has had no GI bleed. RENAL: No history of chronic kidney disease. No history of symptoms of UTI. No hematuria, pyuria, or dysuria. CAMPUS POLICE OFFICER: History of sleep apnea present. Does not use CPAP. No history of TIA or CVA. No history of headache, migraines, or seizures. MUSCULOSKELETAL: History of chronic back pain. He is not able to walk much. He has chronic pain medications. He is seeing Pain Management for this. No collagen vascular disease. PSYCHIATRIC: No history of anxiety or depression. No suicidal or homicidal ideation. VASCULAR: History of recurrent DVTs, none recently. History of IVC filter placement. History of bleeding with anticoagulation. No history of calf or buttock claudication. HEMATOLOGICAL: No history of bleeding diathesis. No history of clotting disorder. History of bleeding on anticoagulation in the past, and he does have an IVC filter. PHYSICAL EXAMINATION: GENERAL: The patient is morbidly obese, but well groomed. At present, he is in no acute distress. VITAL SIGNS: He is afebrile with temperature 97.8 degrees Fahrenheit orally. Pulse is 71 beats per minute. Blood pressure 113/44. Respirations 20 per minute. O2 sats 96% on 2 liters nasal cannula. HEENT: Head is atraumatic/normocephalic. Eyes: Pupils are equal, round, regular, reactive to light and accommodation. Extraocular movements are normal. There is no conjunctival pallor. There is no scleral icterus. Ears: Tympanic membranes are intact. External auditory canals are clear. There are no lesions of the pinnae. Nose: There is no deviated nasal septum. There is no inflammation of the nasal mucosal membrane. Mouth: Mucous membranes in the mouth are moist. Tongue is moist. There is no bleeding from gums. Throat: There is no redness of the oropharynx. There is no exudate. SKIN: No skin rashes. No petechiae, no ecchymosis, no skin lesions. NECK: Supple. There is mild JVD present. Carotids are equal. There is no bruit. There is no lymphadenopathy. Trachea centered. LUNGS: Diminished air entry, prolonged expiration with a few bibasilar rales. HEART: S1, S2 heard. There is no S3 gallop. There is no S4 gallop. Systolic murmur in the left sternal border in the apex. There is no rub. ABDOMEN: Obese morbidly. There is no hepatosplenomegaly. Bowel sounds are well heard. There is no tenderness or masses. No definite ascites seen. EXTREMITIES: Femorals are very deep. Femorals are diminished. There are no femoral bruits. Leg pulses are very much diminished. There is 3+ pedal edema bilaterally. There is no evidence of cellulitis. There is no cyanosis or clubbing. There is no calf tenderness. CAMPUS POLICE OFFICER: The patient is conscious, awake, alert, oriented x3 with no focal deficits. PSYCHIATRIC: The patient's judgment and insight are intact. His affect is normal. The patient's EKG shows sinus rhythm, borderline nonspecific IVCD. No acute change. The EKG was interpreted by me. His venous Doppler study shows that it is a limited study; no evidence of SVT or DVT of either leg. Patchy retrocardiac airspace disease, likely atelectasis. The patient's white count is 11,400, hemoglobin 12.1, hematocrit 36.5, platelet count 285,000. The patient's sodium is 140.7, potassium 3.9, chloride 99, CO2 of 35. The patient's BUN is 13, creatinine 1.10. GFR is greater than 60. His glucose is 132. His liver function tests are normal except for mildly elevated direct bilirubin of 0.5, and a low ALT of 15. His CPK/MB has been negative x2. His NT-proBNP is 185. His total protein is 8. Albumin 3.7. The patient's urine does not show any protein. IMPRESSION: 1. Increasing leg edema, question etiology. Need to assess for pulmonary hypertension versus acute on chronic systolic heart failure versus acute systolic or acute diastolic heart failure. Would recommend an echocardiogram to assess LV ejection fraction. 2. Chronic obstructive pulmonary disease, oxygen dependent. 3. Coronary artery disease, no evidence of anginal symptoms. No evidence of myocardial infarction. 4. Hypertension. Well controlled. 5. Diabetes mellitus type 2, non-insulin dependent. 6. History of recurrent deep venous thrombosis, status post IVC filter. 7. Morbid obesity. 8. History of chronic kidney disease, but at present the renal functions are normal. RECOMMENDATIONS: Continue the patient on Lasix. Continue his current medications. His LV ejection fraction is normal. Would see if there is evidence of pulmonary hypertension, in which case would recommend an ABDULAZIZ inhibitor. Will get records from Dr. Guardado, his media services specialist. I have left a message for Dr. Guardado to call me. Note that medical decision making is of moderate complexity. His medications have been reviewed and discussed with the attending physician on the case. Await the patient's echocardiogram. Dr. Mulligan will follow the patient in the morning. DICTATING PHYSICIAN: HANNAH ALEJO M.D. [id number] PHY#: [id number] ID: [id number] JOB#: [id number] ACCT: [id number] cc:HANNAH ALEJO M.D. >
[2017-09-01] MEDS: FUROSEMIDE INJ/PF 40 MG/4 ML SDV IV SCH ×4 (00:08→17:45)
[2017-09-01 06:20] LABS: ANION GAP 9 (5-19); BLOOD UREA NITROGEN 20 mg/dL (7-20); CALCIUM 8.4 mg/dL (8.4-10.2); CARBON DIOXIDE 38 mmol/L (22-30); CHLORIDE 90 mmol/L (98-107); GLUCOSE 120 mg/dL (75-110); POTASSIUM 3.6 mmol/L (3.6-5.0); SODIUM 136.6 mmol/L (137-145)
[2017-09-01] MEDS: CEPHALEXIN 500 MG CAPSULE PO SCH ×3 (06:22→21:49)
[2017-09-01] MEDS: OXYCODONE HCL IR 5 MG TABLET PO PRN ×4 (06:22→21:49)
[2017-09-01] MEDS: ASPIRIN 81 MG TABLET, CHEWABLE PO SCH (08:20)
[2017-09-01] MEDS: METFORMIN HCL 500 MG TABLET PO SCH ×4 (08:20→21:49)
[2017-09-01] MEDS: CYANOCOBALAMIN (VITAMIN B-12) 1,000 MCG TABLET PO SCH (10:43)
[2017-09-01] MEDS: CARVEDILOL 3.125 MG TABLET PO SCH ×2 (10:44→21:49)
[2017-09-01] MEDS: DOCUSATE SODIUM 100 MG CAPSULE PO SCH ×2 (10:44→17:45)
--- NOTE | 2017-09-01 15:39 | PDOC PROGRESS REPORT ---
Subjective Progress Note for:: 09/01/17 Subjective:: Patient vomited today, recently eaten food Reason For Visit: CHF Physical Exam Vital Signs: Temp Pulse Resp BP Pulse Ox 97.5 F 75 18 104/42 L 93 09/01/17 12:00 09/01/17 14:00 09/01/17 12:00 09/01/17 12:00 09/01/17 12:00 Intake & Output 08/31/17 09/01/17 09/02/17 06:59 06:59 06:59 Intake Total 2039 3840 Output Total 3275 2900 Balance -1236 940 Weight 164 kg General appearance: PRESENT: no acute distress Eye exam: PRESENT: PERRLA Respiratory exam: PRESENT: clear to auscultation mona Cardiovascular exam: PRESENT: +S2 Murmur grade: 3 GI/Abdominal exam: PRESENT: soft Results Laboratory Results: 08/30/17 04:14 09/01/17 05:27 09/01/17 05:27 Sodium 136.6 L Potassium 3.6 Chloride 90 L Carbon Dioxide 38 H Anion Gap 9 BUN 20 Creatinine 1.02 Est GFR ( Amer) > 60 Est GFR (Non-Af Amer) > 60 Glucose 120 H Calcium 8.4 08/29/17 08/29/17 08/29/17 09:52 09:52 14:57 Creatine Kinase 55 50 L CK-MB (CK-2) 0.41 Troponin I < 0.012 08/29/17 08/29/17 08/29/17 14:57 20:23 20:23 Creatine Kinase 50 L CK-MB (CK-2) 0.41 0.34 Troponin I < 0.012 < 0.012 Impressions: Venous Doppler Study 08/29/17 05:26 IMPRESSION: LIMITED STUDY. NO EVIDENCE DVT OR SVT IN EITHER LEG. Assessment & Plan - Diagnosis (1) Congestive heart failure Qualifiers: Heart failure type: combined systolic and diastolic Heart failure chronicity: acute Qualified Code(s): I50.41 - Acute combined systolic ( congestive) and diastolic (congestive) heart failure Is this a current diagnosis for this admission?: Yes (2) CHF (congestive heart failure) Qualifiers: Heart failure type: diastolic Heart failure chronicity: acute Qualified Code(s): I50.31 - Acute diastolic (congestive) heart failure Is this a current diagnosis for this admission?: Yes
--- NOTE | 2017-09-01 22:25 | PROGRESS NOTE E ---
Progress Note NAME: BRUCE KNOX : 1945 AGE: 72Y DATE: 09/01/2017 ROOM: 530 SUBJECTIVE: The patient states his shortness of breath has improved. He states that when he sat down, his leg edema increased and when he lay back in bed, his edema decreased. He still has 2- edema bilaterally. There is no evidence of cellulitis. He does have chronic orthopnea. There is no chest pain or discomfort. There is no PND. There are no palpitations. There is no arrhythmia seen on the monitor. There are no TIA or CVA symptoms. OBJECTIVE: GENERAL: On examination, the patient is morbidly obese, at present, in no acute distress. He is well groomed. VITAL SIGNS: He is afebrile with a temperature of 97.5 degrees Fahrenheit, pulse is 74 beats per minute, blood pressure 104/42, respirations are 18 per minute, O2 saturations are 93% on 2 L nasal cannula. HEENT: Head is atraumatic, normocephalic. Eyes: Pupils are equal, round, regular, reactive to light and accommodation. Extraocular movements are normal. There is no conjunctival pallor. There is no scleral icterus. ENT is negative. NECK: Supple. There is no JVD. Carotids are equal. There is no bruit. There is no lymphadenopathy. Trachea central. LUNGS: Show diminished air entry, prolonged expiration, without any rhonchi, rales or wheezing. HEART: S1 and S2 are heard. There is no S3 gallop. There is no S4 gallop. There is a systolic murmur in the left sternal border on the apex. There is no rub. ABDOMEN: Obese morbidly. There is no hepatosplenomegaly. Bowel sounds are well heard. There are no tender areas or masses. There is no rebound, guarding or rigidity. There is no definite ascites. EXTREMITIES: Femorals are very deep. Femorals are diminished. There are no femoral bruits. Leg pulses are very much diminished. There is 2- pedal edema. There is no evidence of cellulitis. There is no cyanosis or clubbing. There is no calf tenderness. There is no evidence of DVT. CENTRAL NERVOUS SYSTEM: The patient is conscious, awake, alert, oriented x3 with no focal deficit. PSYCHIATRIC: The patient's judgment and insight are intact. His affect is normal. INTAKE AND OUTPUT: The patient's 24-hour intake is 3840 mL. Output is 2900 mL. LABORATORY DATA: His sodium is 136.6, potassium 3.3, chloride is 90, CO2 is 38; the patient's BUN is 20, creatinine is 1.02, GFR is greater than 60; his glucose is 120, and his calcium is 8.4. IMPRESSION: 1. LEG EDEMA, MOST LIKELY SECONDARY TO RIGHT HEART FAILURE AND ALSO VENOUS INSUFFICIENCY. 2. RIGHT HEART FAILURE, POSSIBLY ACUTE ON CHRONIC. 3. CORONARY ARTERY DISEASE. NO EVIDENCE OF ANGINAL SYMPTOMS. NO EVIDENCE OF MYOCARDIAL INFARCTION. 4. CHRONIC OBSTRUCTIVE PULMONARY DISEASE, O2 DEPENDENT. 5. HYPERTENSION, WELL CONTROLLED. 6. DIABETES MELLITUS TYPE 2, NON-INSULIN DEPENDENT. 7. HISTORY OF RECURRENT DEEP VENOUS THROMBOSIS, STATUS POST IVC FILTER. 8. MORBID OBESITY. 9. HISTORY OF CHRONIC KIDNEY DISEASE. AT PRESENT, RENAL FUNCTIONS ARE NORMAL. 10. SLEEP APNEA, INTOLERANT TO CPAP. 11. CHRONIC BACK PAIN. 12. CONSTIPATION. The patient complains of severe constipation. Would recommend to see if Linzess can be increased. Also would recommend the patient be given a suppository. RECOMMENDATIONS: As mentioned earlier, would decrease the patient's 24-hour total intake to less than 1.5 L each 24 hour period. Would continue the patient on Lasix. The patient's potassium is low normal. Would add potassium supplement. Note that the echocardiogram shows normal LV systolic function. There is moderately enlarged right ventricle but unable to estimate right ventricular systolic pressure due to insufficient TR jet. Note that the patient's echo is a suboptimal study due to the patient's obesity. TIME SPENT: Forty minutes spent on this patient with more than 50% of the time spent on direct patient care. Medical decision making is of high complexity. His medications have been reviewed and medication changes have been done. Also, a fluid restriction has been placed on the patient. Discussed with other care giving providers on the case. We will talk to Dr. Guardado, the patient's animal control supervisor, to see if we get any information on the patient's past medical history. CODE STATUS: The patient is a FULL CODE. His surrogate healthcare decision maker is unchanged. DICTATING PHYSICIAN: HANNAH ALEJO M.D. [id number] PHY#: [id number] ID: [id number] JOB#: [id number] ACCT: [id number] cc: >
[2017-09-02] MEDS: FUROSEMIDE INJ/PF 40 MG/4 ML SDV IV SCH ×2 (00:29→05:12)
[2017-09-02] MEDS: CEPHALEXIN 500 MG CAPSULE PO SCH ×3 (05:11→22:01)
--- NOTE | 2017-09-02 07:48 | PDOC PROGRESS REPORT ---
Subjective Progress Note for:: 09/02/17 Subjective:: Patient is currently doing fair Swelling is pretty much same Patient's denied any chest pain denied any shortness of the breath Patient's not able to wear any CPAP Reason For Visit: CHF Physical Exam Vital Signs: Temp Pulse Resp BP Pulse Ox 97.6 F 76 15 124/56 L 92 09/02/17 03:40 09/02/17 07:00 09/02/17 03:40 09/02/17 03:40 09/02/17 03:40 Intake & Output 09/01/17 09/02/17 09/03/17 06:59 06:59 06:59 Intake Total 3840 1590 Output Total 2900 2275 Balance 940 -685 Weight 164.5 kg General appearance: PRESENT: no acute distress, well-developed, well-nourished Head exam: PRESENT: atraumatic, normocephalic Eye exam: PRESENT: conjunctiva pink, EOMI, PERRLA. ABSENT: scleral icterus Ear exam: PRESENT: normal external ear exam Mouth exam: PRESENT: moist, tongue midline Neck exam: PRESENT: full ROM. ABSENT: carotid bruit, JVD, lymphadenopathy, thyromegaly Respiratory exam: PRESENT: clear to auscultation mona Cardiovascular exam: PRESENT: RRR. ABSENT: diastolic murmur, rubs, systolic murmur Murmur grade: 3 Pulses: PRESENT: normal dorsalis pedis pul, +2 pedal pulses bilateral Vascular exam: PRESENT: normal capillary refill GI/Abdominal exam: PRESENT: normal bowel sounds, soft. ABSENT: distended, guarding, mass, organolmegaly, rebound, tenderness Rectal exam: PRESENT: deferred Extremities exam: PRESENT: pedal edema Musculoskeletal exam: PRESENT: ambulatory Neurological exam: PRESENT: alert, awake, oriented to person, oriented to place , oriented to time, oriented to situation, CN II-XII grossly intact. ABSENT: motor sensory deficit Psychiatric exam: PRESENT: appropriate affect, normal mood. ABSENT: homicidal ideation, suicidal ideation Skin exam: PRESENT: dry, intact, warm. ABSENT: cyanosis, rash Results Laboratory Results: 08/30/17 04:14 09/01/17 05:27 08/29/17 08/29/17 08/29/17 09:52 09:52 14:57 Creatine Kinase 55 50 L CK-MB (CK-2) 0.41 Troponin I < 0.012 08/29/17 08/29/17 08/29/17 14:57 20:23 20:23 Creatine Kinase 50 L CK-MB (CK-2) 0.41 0.34 Troponin I < 0.012 < 0.012 Impressions: Venous Doppler Study 08/29/17 05:26 IMPRESSION: LIMITED STUDY. NO EVIDENCE DVT OR SVT IN EITHER LEG. Assessment & Plan - Diagnosis (1) Edema Qualifiers: Edema type: localized Qualified Code(s): R60.0 - Localized edema Is this a current diagnosis for this admission?: Yes Plan: Most likely underlying congestive heart failure with status post IVC filter with chronic edema in the leg (2) Recurrent deep vein thrombosis (DVT) Is this a current diagnosis for this admission?: Yes Plan: Currently patient's ultrasound is all negative (3) Hypertension Qualifiers: Hypertension type: essential hypertension Qualified Code(s): I10 - Essential (primary) hypertension Is this a current diagnosis for this admission?: Yes Plan: Continues to current medication (4) Coronary artery disease Qualifiers: Coronary Disease-Associated Artery/Lesion type: unspecified vessel or lesion type Is this a current diagnosis for this admission?: Yes Plan: Will rule out the acute coronary syndromes (5) Sleep apnea Qualifiers: Sleep apnea type: unspecified type Qualified Code(s): G47.30 - Sleep apnea , unspecified Is this a current diagnosis for this admission?: Yes Plan: Patient is not using the sleep machine (6) CHF (congestive heart failure) Qualifiers: Heart failure type: diastolic Heart failure chronicity: acute Qualified Code(s): I50.31 - Acute diastolic (congestive) heart failure Is this a current diagnosis for this admission?: Yes Plan: Continues to IV Lasix get the 2D echocardiogram (7) CKD (chronic kidney disease), stage III Is this a current diagnosis for this admission?: Yes Plan: Currently all stable (8) COPD (chronic obstructive pulmonary disease) Qualifiers: Emphysema type: unspecified Is this a current diagnosis for this admission?: Yes - Time Time Spent with patient: 15-24 minutes Medications reviewed and adjusted accordingly: Yes Anticipated discharge: Home Within: within 24 hours - Inpatient Certification Medical Necessity: Need Close Monitoring Due to Risk of Patient Decompensation Post Hospital Care: D/C Hospice Director Documentation - Plan Summary Plan Summary: Patient anxious to go home will DC the IV Lasix start on the p.o. Bumex
[2017-09-02] MEDS: POTASSIUM CHLORIDE 20 MEQ/15 ML UDCUP PO SCH ×3 (08:26→22:01)
[2017-09-02] MEDS: METFORMIN HCL 500 MG TABLET PO SCH ×4 (08:33→22:01)
[2017-09-02] MEDS: ASPIRIN 81 MG TABLET, CHEWABLE PO SCH (08:33)
[2017-09-02] MEDS: CYANOCOBALAMIN (VITAMIN B-12) 1,000 MCG TABLET PO SCH (10:01)
[2017-09-02] MEDS: DOCUSATE SODIUM 100 MG CAPSULE PO SCH ×2 (10:01→17:14)
[2017-09-02] MEDS: OXYCODONE HCL IR 5 MG TABLET PO PRN ×3 (10:01→22:02)
[2017-09-02] MEDS: CARVEDILOL 3.125 MG TABLET PO SCH ×2 (10:02→22:01)
[2017-09-02] MEDS: POLYETHYLENE GLYCOL 3350 POWDER 17 GM/1 PACKET PO SCH (12:36)
[2017-09-02] MEDS: BUMETANIDE 1 MG TABLET PO SCH (17:14)
--- NOTE | 2017-09-02 22:46 | PROGRESS NOTE E ---
Progress Note NAME: BRUCE KNOX : 1945 AGE: 72Y DATE: 09/02/2017 ROOM: 530 SUBJECTIVE: The patient states he feels much better. There is no shortness of breath. The patient is up sitting in the chair. His leg edema is much improved. There is no PND. He has chronic orthopnea. There is no chest pain or discomfort. There are no palpitations. There are no TIA or CVA symptoms. There is no dizziness or syncope or near syncope. There is no arrhythmia seen on the monitor. OBJECTIVE: GENERAL: On examination the patient is morbidly obese, but at present in no acute distress. He is well-groomed. VITAL SIGNS: He is afebrile with a temperature of 98.2 degrees Fahrenheit, pulse is 73 beats per minute, blood pressure is 144/51, respirations are 20 per minute, O2 saturations are 91% on 1 liter nasal cannula. HEENT: Head is atraumatic, normocephalic. Eyes: Pupils are equal, round and regular, reactive to light and accommodation. Extraocular movements are normal. There is no conjunctival pallor. There is no scleral icterus. ENT is negative. NECK: Supple. There is no JVD. There is no lymphadenopathy. There is no goiter. Carotids are equal. There is no bruit. Trachea is central. LUNGS: Show diminished air entry, prolonged expiration without any chronic, rales, or wheezing. On percussion there is hyperresonance. HEART: S1, S2 is heard. S1 is of normal intensity. There is no S3 gallop. There is no S4 gallop. There is a systolic murmur in the left sternal border and the apex. There is no rub. ABDOMEN: Obese, nontender. There is no hepatosplenomegaly. Bowel sounds are well heard. There are no tender areas or masses. EXTREMITIES: Femorals are deep. Femoral are diminished. Leg pulses are diminished. There trace of some mild pedal edema bilaterally. There is no cyanosis or clubbing. There is no DVT or cellulitis. There is no calf tenderness. CENTRAL NERVOUS SYSTEM: The patient is conscious, awake, alert and oriented x3 with no focal deficits. PSYCHIATRIC: The patient's judgment and insight are intact. His affect is normal. INTAKE AND OUTPUT: The patient's 24 hour intake is 1590 mL, output is 2275 mL. DIAGNOSTICS: The patient's blood sugar is 117 and 142. IMPRESSION: 1. LEG EDEMA, MOST LIKELY SECONDARY TO RIGHT HEART FAILURE, MUCH IMPROVED. ALSO AN ELEMENT OF VENOUS INSUFFICIENCY CAUSING THIS. 2. RIGHT HEART FAILURE, PROBABLY ACUTE ON CHRONIC, MUCH IMPROVED. 3. CORONARY ARTERY DISEASE, NO ANGINA. NO EVIDENCE OF MYOCARDIAL INFARCTION. 4. COPD. OXYGEN DEPENDENT. 5. HYPERTENSION, WELL-CONTROLLED. 6. DIABETES MELLITUS TYPE 2, NONINSULIN DEPENDENT. 7. HISTORY OF RECURRENT DEEP VEIN THROMBOSIS, STATUS POST IVC FILTER SINCE THE PATIENT HAD BLEEDING PROBLEMS WITH ANTICOAGULATION. 8. MORBID OBESITY. 9. HISTORY OF CHRONIC DISEASE. At present renal functions are normal. 10. SLEEP APNEA, INTOLERANT TO CPAP. 11. CHRONIC BACK PAIN. 12. POSITIVE CONSTIPATION. RECOMMENDATIONS: Would continue the patient on fluid restriction. Continue current diuretics and current medications. His medications have been reviewed. Medical decision making is of moderate complexity. TIME SPENT: Note 40 minutes spent on this patient with more than 50% of the time spent on direct patient care. The patient's cardiac status is stable. We will sign off the case and discuss with the attending physician. Discussed with the patient he will need to follow up with his workforce management consultant, Dr. Guardado. DICTATING PHYSICIAN: HANNAH ALEJO M.D. [id number] HANG#: [id number] ID: [id number] JOB#: [id number] ACCT: [id number] cc: >
[2017-09-03] MEDS: CEPHALEXIN 500 MG CAPSULE PO SCH (04:26)
[2017-09-03] MEDS: OXYCODONE HCL IR 5 MG TABLET PO PRN ×2 (04:26→11:34)
[2017-09-03 04:48] LABS: ABSOLUTE BASOPHILS # (AUTO) 0.1 10^3/uL (0.0-0.2); ABSOLUTE EOSINOPHILS # (AUTO) 0.4 10^3/uL (0.0-0.6); ABSOLUTE LYMPHOCYTES (AUTO) 2.5 10^3/uL (0.5-4.7); ABSOLUTE MONOCYTES (AUTO) 1.1 10^3/uL (0.1-1.4); ABSOLUTE NEUT (AUTO) 5.2 10^3/uL (1.7-8.2); EOSINOPHILS % (AUTO) 4.7 % (0-6); HEMATOCRIT 34.2 % (37.9-51.0); HEMOGLOBIN 11.5 g/dL (13.5-17.0); LYMPHOCYTES % (AUTO) 26.7 % (13-45); MEAN CORPUSCULAR HEMOGLOBIN 28.7 pg (27.0-33.4); MEAN CORPUSCULAR HGB CONC 33.5 g/dL (32.0-36.0); MEAN CORPUSCULAR VOLUME 86 fl (80-97); MONOCYTES % (AUTO) 11.6 % (3-13); PLATELET COUNT 227 10^3/uL (150-450); RED BLOOD COUNT 4.01 10^6/uL (4.35-5.55); RED CELL DISTRIBUTION WIDTH 14.7 % (11.5-14.0); TOTAL CELLS COUNTED % (AUTO) 100 %; WHITE BLOOD COUNT 9.3 10^3/uL (4.0-10.5)
[2017-09-03 04:56] LABS: ANION GAP 7 (5-19); BLOOD UREA NITROGEN 21 mg/dL (7-20); CALCIUM 8.8 mg/dL (8.4-10.2); CARBON DIOXIDE 39 mmol/L (22-30); CHLORIDE 93 mmol/L (98-107); GLUCOSE 121 mg/dL (75-110)
--- NOTE | 2017-09-03 08:40 | PDOC DISCHARGE SUMMARY ---
General - Admit/Disc Date/PCP Admission Date/Primary Care Provider: 08/29/17 05:36 SONG BENNETT MD Discharge Date: 09/03/17 - Discharge Diagnosis (1) Edema Is this a current diagnosis for this admission?: Yes Summary: Currently all improved with the multifactorial due to the right-sided heart failure also uncontrolled sleep apnea which patient unable to wear the CPAP and also IVC filter (2) Recurrent deep vein thrombosis (DVT) Is this a current diagnosis for this admission?: Yes Summary: Patient's current ultrasound is negative patient unable to handle the anticoagulation stop by the [facility] in the past (3) Hypertension Is this a current diagnosis for this admission?: Yes Summary: Currently all stable (4) Coronary artery disease Is this a current diagnosis for this admission?: Yes Summary: Follow with outpatient Dr. Guardado patient seen by the Dr. Rivas here and suggest fluid restriction continues to current medications (5) Sleep apnea Is this a current diagnosis for this admission?: Yes Summary: Unfortunately patient do not want to wear the CPAP (6) CHF (congestive heart failure) Is this a current diagnosis for this admission?: Yes Summary: Right-sided congestive heart failure patients currently and Dr. Guardado (7) CKD (chronic kidney disease), stage III Is this a current diagnosis for this admission?: Yes Summary: Currently all stable (8) COPD (chronic obstructive pulmonary disease) Is this a current diagnosis for this admission?: Yes Summary: Is currently on oxygen dependent 2 L nasal cannula - Additional Information Resuscitation Status: Full Code Discharge Diet: Cardiac, Diabetic Discharge Activity: Activity As Tolerated, Balance Activity w/Rest, Weigh Daily Home Medications: Albuterol Sulfate [Proair HFA Inhalation Aerosol 8.5 gm MDI] 2 puff IH Q4HP PRN 08/29/17 Aspirin [Adult Low Dose Aspirin EC] 81 mg PO Q12 08/29/17 Bumetanide [Bumex 1 mg Tablet] 1 mg PO BID 08/29/17 Carvedilol [Coreg 3.125 mg Tablet] 3.125 mg PO Q12 08/29/17 Linaclotide [Linzess] 290 mcg PO Q6AM 08/29/17 Metformin HCl [Glucophage XR 500 mg Tablet] 500 mg PO QHS 08/29/17 Naloxone HCl [Evzio] 0.4 mg INJ ASDIR PRN 08/29/17 Oxycodone HCl 15 mg PO Q4HP PRN 08/29/17 History of Present Illness History of Present Illness: BRUCE KNOX is a 72 year old male This is a 72-year-old male with the history of the cardiomyopathy with the diastolic heart failure history of the coronary artery disease and a history of the recurrent DVT status post IVC filter was placed due to the ongoing [facility] the [facility] pad molder as an outpatient seen couple of months back and suggest the following the 6 month Patient have ongoing problem with the leg swelling and is currently complaining of a little bit more short of breath with the history of the COPD and history of the tobacco abuse in the past and that patients not currently using the CPAP with underlying sleep disorders which patient does not like the CPAP and a history of this oxygen dependent COPD Patients came to the emergency department with the daughter yesterday because of the increasing the leg swelling for the last 3 days and according to the patient's patient was recently have a pain management change the pain medication and patient start feeling more symptoms In the emergency department patients have a leg swelling and some vascular congestion's and at this point decided to admit in the hospital for IV diuretics Since ultrasound for the lower extremity was done which is negative for any DVT When I saw the patient in the emergency department denied any chest pain no fever no chills Hospital Course Hospital Course: This is a 72-year-old male presented about a similar worsening of the lower extremity edema and patients was diagnosed with a right-sided heart failure with the multifactorial status post IVC filter and uncontrolled CPAP due to underlying pulmonary hypertension's and the patient at this point started on IV Lasix Patient seen by the cardiology locally here in the hospital and suggest the continues to fluid restriction on IV Lasix and follow outpatient Responds well and patient's desire to go homes Patient have ultrasound for the lower extremities done was negative for any DVT Patient is currently using the 2 L nasal cannula oxygen's all the times because of the COPD Patient's discharge home with the stable condition and follow-up outpatients Dr. Guardado the shoulder pad molder and following office in 1 week Discussed with the daughter regarding the patient's current conditions and follow-up outpatients plan Physical Exam Vital Signs: Temp Pulse Resp BP Pulse Ox 97.8 F 69 20 110/44 L 92 09/03/17 08:16 09/03/17 08:16 09/03/17 08:16 09/03/17 08:16 09/03/17 08:16 Intake & Output 09/02/17 09/03/17 09/04/17 06:59 06:59 06:59 Intake Total 1590 1168 Output Total 7084 9880 Balance -685 1092 Weight 164.5 kg 159.9 kg General appearance: PRESENT: no acute distress, well-developed, well-nourished Head exam: PRESENT: atraumatic, normocephalic Eye exam: PRESENT: conjunctiva pink, EOMI, PERRLA. ABSENT: scleral icterus Ear exam: PRESENT: normal external ear exam Mouth exam: PRESENT: moist, tongue midline Neck exam: PRESENT: full ROM. ABSENT: carotid bruit, JVD, lymphadenopathy, thyromegaly Respiratory exam: PRESENT: clear to auscultation mona Cardiovascular exam: PRESENT: RRR. ABSENT: diastolic murmur, rubs, systolic murmur Murmur grade: 3 Pulses: PRESENT: normal dorsalis pedis pul, +2 pedal pulses bilateral Vascular exam: PRESENT: normal capillary refill GI/Abdominal exam: PRESENT: normal bowel sounds, soft. ABSENT: distended, guarding, mass, organolmegaly, rebound, tenderness Rectal exam: PRESENT: deferred Extremities exam: ABSENT: pedal edema Musculoskeletal exam: PRESENT: ambulatory Neurological exam: PRESENT: alert, awake, oriented to person, oriented to place , oriented to time, oriented to situation, CN II-XII grossly intact. ABSENT: motor sensory deficit Psychiatric exam: PRESENT: appropriate affect, normal mood. ABSENT: homicidal ideation, suicidal ideation Skin exam: PRESENT: dry, intact, warm. ABSENT: cyanosis, rash Results Laboratory Results: 09/03/17 04:01 09/03/17 04:01 09/03/17 09/03/17 04:01 04:01 WBC 9.3 RBC 4.01 L Hgb 11.5 L Hct 34.2 L MCV 86 MCH 28.7 MCHC 33.5 RDW 14.7 H Plt Count 227 Seg Neutrophils % 56.0 Lymphocytes % 26.7 Monocytes % 11.6 Eosinophils % 4.7 Basophils % 1.0 Absolute Neutrophils 5.2 Absolute Lymphocytes 2.5 Absolute Monocytes 1.1 Absolute Eosinophils 0.4 Absolute Basophils 0.1 Sodium 139.0 Potassium 4.0 Chloride 93 L Carbon Dioxide 39 H Anion Gap 7 BUN 21 H Creatinine 0.99 Est GFR ( Amer) > 60 Est GFR (Non-Af Amer) > 60 Glucose 121 H Calcium 8.8 08/29/17 08/29/17 08/29/17 09:52 09:52 14:57 Creatine Kinase 55 50 L CK-MB (CK-2) 0.41 Troponin I < 0.012 08/29/17 08/29/17 08/29/17 14:57 20:23 20:23 Creatine Kinase 50 L CK-MB (CK-2) 0.41 0.34 Troponin I < 0.012 < 0.012 Impressions: Venous Doppler Study 08/29/17 05:26 IMPRESSION: LIMITED STUDY. NO EVIDENCE DVT OR SVT IN EITHER LEG. Qualifiers - * PATIENT BEING DISCHARGED WITH ANY OF THE FOLLOWING DIAGNOSIS: Heart Failure VTE patient discharged on overlapping Therapy?: Yes HF Pt being discharged on ACEI for LVEF less than 40%?: No Reason(s) for not prescribing ACEI:: Not indicated HF Pt being discharged on ARBS for LVEF less than 40%?: No Reason(s) for not prescribing ARBS:: Not indicated HF Pt with Afib discharged with Warfarin?: No Reason(s) for not prescribing Warfarin:: Not indicated HF Pt discharged on evidence-based Beta Belle:: Yes Plan Time Spent: Greater than 30 Minutes - Following office in 1 week Follow outpatients cardiology
[2017-09-03] MEDS: DOCUSATE SODIUM 100 MG CAPSULE PO SCH (11:30)
[2017-09-03] MEDS: BUMETANIDE 1 MG TABLET PO SCH (11:30)
[2017-09-03] MEDS: POTASSIUM CHLORIDE 20 MEQ/15 ML UDCUP PO SCH (11:30)
[2017-09-03] MEDS: CYANOCOBALAMIN (VITAMIN B-12) 1,000 MCG TABLET PO SCH (11:31)
[2017-09-03] MEDS: CARVEDILOL 3.125 MG TABLET PO SCH (11:31)
[2017-09-03] MEDS: ASPIRIN 81 MG TABLET, CHEWABLE PO SCH (11:31)
[2017-09-03] MEDS: METFORMIN HCL 500 MG TABLET PO SCH (11:31)
[2017-09-03] MEDS: POLYETHYLENE GLYCOL 3350 POWDER 17 GM/1 PACKET PO SCH (11:38)
[2017-09-03 13:34] VITALS: BP 140/80
== END 2017-09-03 13:50 | disposition home or self-care (01) | DRG 291 ==
LOC: ER 03:12 → EH 05:36 → 4W 11:01 → 5 11:52
PROVIDERS: ADMIT Family Medicine; ATTEND Family Medicine
PROC: 3E0F73Z Introduction of Anti-inflammatory into Respiratory Tract, Via Natural or Artificial Opening (ICD-10-PCS; principal; 2017-08-29)
DX: I13.0 Hypertensive heart and chronic kidney disease with heart failure and stage 1 through stage 4 chronic kidney disease, or unspecified chronic kidney disease (principal); I50.31 Acute diastolic (congestive) heart failure; Z68.42 Body mass index [BMI] 45.0-49.9, adult; I25.10 Atherosclerotic heart disease of native coronary artery without angina pectoris; G47.30 Sleep apnea, unspecified; N18.3 Chronic kidney disease, stage 3 (moderate); J44.9 Chronic obstructive pulmonary disease, unspecified; E66.01 Morbid (severe) obesity due to excess calories; G89.29 Other chronic pain; M54.9 Dorsalgia, unspecified; E11.22 Type 2 diabetes mellitus with diabetic chronic kidney disease; K21.9 Gastro-esophageal reflux disease without esophagitis; M19.90 Unspecified osteoarthritis, unspecified site; I27.20 Pulmonary hypertension, unspecified; K59.00 Constipation, unspecified; Z99.81 Dependence on supplemental oxygen; Z79.899 Other long term (current) drug therapy; Z86.718 Personal history of other venous thrombosis and embolism; Z98.49 Cataract extraction status, unspecified eye; Z79.82 Long term (current) use of aspirin; Z88.6 Allergy status to analgesic agent; Z91.018 Allergy to other foods
CPT/HCPCS: 36415; 71045; 80048; 80053; 81001; 82550; 82553; 82962; 83880; 84484; 85025; 93005; 93010; 93306; 93970; 96374; 99285; G8978-GP; G8979-GP; J1940; J3490

== ENCOUNTER 2017-11-27 13:42 | Emergency (ER) | payer MEDICARE, MEDICAID ==
--- NOTE | 2017-11-27 14:22 | ER Document Report ---
ED General <ROMULO SHIRLEY - Last Filed: 11/27/17 16:10> - General Mode of Arrival: Ambulatory Information source: Patient TRAVEL OUTSIDE OF THE [place] IN LAST 30 DAYS: No <YANG ZAPATA - Last Filed: 11/27/17 22:15> - General Chief Complaint: Fall Injury Stated Complaint: BACK/NECK PAIN,HEADACHE Time Seen by Provider: 11/27/17 14:10 Notes: Patient is a 72 year old male with CAD, cardiomyopathy, diastolic CHF, GERD, type 2 diabetes, hypertension, O2 dependent COPD presents to the emergency department complaining of head, neck, knee and back back pain secondary to a mechanical trip and fall. Patient states he was attempting to urinate outside off the porch when he tripped and fell down 2 steps, landing face first. Patient states that he has chronic upper and lower back pain and knee pain but feels his pain is worse since the fall. Patient currently takes 15 mg oxycodone daily. (YANG ZAPATA) - Related Data Allergies/Adverse Reactions: strawberry [Sims] Allergy (Unknown, Verified 08/29/17 05:42) morphine [Morphine] Adverse Reaction (Mild, Verified 08/29/17 05:42) redness to face Past Medical History - General Information source: Patient - Social History Smoking Status: Former Smoker Chew tobacco use (# tins/day): No Frequency of alcohol use: None Family History: Reviewed & Not Pertinent Patient has suicidal ideation: No Patient has homicidal ideation: No - Past Medical History Cardiac Medical History: Reports: Hx Congestive Heart Failure, Hx Hypertension Pulmonary Medical History: Reports: Hx COPD Endocrine Medical History: Reports: Hx Diabetes Mellitus Type 2 GI Medical History: Reports: Hx Gastroesophageal Reflux Disease Musculoskeletal Medical History: Reports Hx Arthritis Past Surgical History: Reports: Hx Vascular Surgery - filter for DVt - Immunizations Hx Diphtheria, Pertussis, Tetanus Vaccination: Yes Hx Pneumococcal Vaccination: 12/18/12 <YANG ZAPATA - Last Filed: 11/27/17 22:15> Review of Systems - Review of Systems Constitutional: No symptoms reported EENT: No symptoms reported Cardiovascular: No symptoms reported Respiratory: No symptoms reported Gastrointestinal: No symptoms reported Genitourinary: No symptoms reported Male Genitourinary: No symptoms reported Musculoskeletal: See HPI Skin: No symptoms reported Hematologic/Lymphatic: No symptoms reported Neurological/Psychological: No symptoms reported -: Yes All other systems reviewed and negative <BENNYYANG ROBERTS - Last Filed: 11/27/17 22:15> Physical Exam <CASPERROMULO Manzano - Last Filed: 11/27/17 16:10> <YANG ZAPATA - Last Filed: 11/27/17 22:15> - Vital signs Vitals: Temp 98 F 11/27/17 13:52 - Notes Notes: GENERAL: Alert, interacts well. No acute distress. HEAD: Normocephalic, atraumatic. EYES: Pupils equal, round, and reactive to light. Extraocular movements intact. ENT: Oral mucosa moist, tongue midline. NECK: Full range of motion. Supple. Trachea midline. Non tender to the cervical spinous processes. LUNGS: Coarse breath sounds. No respiratory distress. Mid to inferior lateral ribs tender to palpation. HEART: Regular rate and rhythm. No murmurs, gallops, or rubs. ABDOMEN: Soft, morbidly obese. Non-tender. Non-distended. Bowel sounds present in all 4 quadrants. EXTREMITIES: Moves all 4 extremities spontaneously. Left hip tender to palpation. Left knee tender to palpation. No pain with internal and external range of motion. Bilateral edema in BLE. Radial and dorsalis pedis pulses 2/4 bilaterally. No cyanosis. NEUROLOGICAL: Alert and oriented x3. Normal speech. PSYCH: Normal affect, normal mood. SKIN: Warm, dry, normal turgor. No rashes or lesions noted. BACK: Lateral lumbar muscles tender to palpation bilaterally. Non tender to the thoracic or lumbar spinous processes. (BENNYYANG) Course - Laboratory Result Diagrams: 11/27/17 15:09 11/27/17 15:09 - Diagnostic Test Radiology reviewed: Reports reviewed - Left rib x-rays do not show displaced fractures or pneumothorax. Left knee x-ray shows degenerative changes with no acute injury. <MICHAEL SHIRLEYALL - Last Filed: 11/27/17 16:10> - Laboratory Result Diagrams: 11/27/17 15:09 11/27/17 15:09 <BENNYYANG ROBERTS - Last Filed: 11/27/17 22:15> - Re-evaluation Re-evalutation: 11/27/17 16:11 Patient states she feels much better laying on his right side than on his back, but this is a chronic issue with him. His x-rays did not show acute fracture in the left ribs or new injury to an arthritic left knee. He does have some tenderness to the left shoulder but there is no swelling or deformity or limitation of motion. He also noticed some abrasions to his right side of his nose that he was rubbing at causing the bleed. He is happy to learn there is no fractures, and also happy that he is going back home. He does request a pain medication shot as he is a chronic narcotic dependent pain patient at this time. (ROMULO SHIRLEY) - Vital Signs Vital signs: Temp Pulse Resp BP Pulse Ox 98 F 65 16 100/40 L 88 L 11/27/17 13:52 11/27/17 14:33 11/27/17 14:33 11/27/17 14:33 11/27/17 14:33 - Laboratory Laboratory results interpreted by me: 11/27/17 11/27/17 15:09 15:09 Hgb 12.6 L RDW 15.4 H Carbon Dioxide 35 H Albumin 3.3 L Discharge <ROMULO SHIRLEY - Last Filed: 11/27/17 16:10> <YANG ZAPATA - Last Filed: 11/27/17 22:15> - Discharge Clinical Impression: Morbid obesity Fall Qualifiers: Encounter type: initial encounter Qualified Code(s): W19.XXXA - Unspecified fall, initial encounter Bruised ribs Qualifiers: Encounter type: initial encounter Laterality: left Qualified Code(s): S20.212A - Contusion of left front wall of thorax, initial encounter Strain of knee Qualifiers: Encounter type: initial encounter Laterality: left Qualified Code(s): S86.912A - Strain of unspecified muscle(s) and tendon(s) at lower leg level, left leg, initial encounter Degenerative joint disease of knee, left Qualifiers: Osteoarthritis type: primary Qualified Code(s): M17.12 - Unilateral primary osteoarthritis, left knee Condition: Stable Disposition: HOME, SELF-CARE Additional Instructions: Rib Contusion You have been diagnosed as having bruised ribs. It will usually take a few weeks for these injured ribs to heal. You should cough or take a deep breath at least every hour or two to prevent lung complications. You should not engage in any strenuous physical activity until released by your physician. The usual rule is "if it hurts, don' t do it." Return if you develop any of the following: (1) Fever or chills. (2) Persistent cough, coughing up blood, or shortness of breath. (3) Increasing pain. (4) Weakness, lightheadedness, or fainting. Your exam shows that she probably bruised your ribs on the left. Your left knee which has severe osteoarthritis was probably strained the causing it hurt worse. Your lumbar back muscles were strained causing them to hurt more than usual. No other significant injuries were found, however other areas may begin to hurt later. Continue your regular pain medications. Always use your walker when you are up walking. Follow-up with Dr. Dillon this week if not improving. RETURN TO THE EMERGENCY ROOM IF ANY NEW OR WORSENING SYMPTOMS. Referrals: SONG DILLON MD [Primary Care Provider] - Follow up as needed Scribe Attestation: 11/27/17 15:32 I personally performed the services described in the documentation, reviewed and edited the documentation which was dictated to the scribe in my presence, and it accurately records my words and actions. (ROMULO SHIRLEY) Scribe Documentation - Scribe Written by Scribron:: Sujey Gamboa, 11/27/2017 14:54 acting as scribe for :: Casper <YANG ZAPATA - Last Filed: 11/27/17 22:15>
[2017-11-27 14:44] LABS: APPEARANCE,URINE CLEAR; BILIRUBIN,URINE NEGATIVE (NEGATIVE); COLOR,URINE YELLOW; GLUCOSE, URINE NEGATIVE (NEGATIVE); KETONES,URINE NEGATIVE (NEGATIVE); LEUKOCYTE ESTERASE,URINE NEGATIVE (NEGATIVE); NITRITE,URINE NEGATIVE (NEGATIVE); PROTEIN,URINE NEGATIVE (NEGATIVE); URINE SPECIFIC GRAVITY 1.008; UROBILINOGEN,URINE NEGATIVE mg/dL (<2.0)
--- NOTE | 2017-11-27 15:18 | RADIOLOGY REPORT (SQ) ---
EXAM DESCRIPTION: KNEE LEFT 3 VIEWS COMPLETED DATE/TIME: 11/27/2017 3:09 pm REASON FOR STUDY: Fall, exacerbation chronic left knee pain COMPARISON: None. NUMBER OF VIEWS: Three views TECHNIQUE: AP, lateral, and sunrise patella radiographic images acquired of the left knee. LIMITATIONS: None. FINDINGS: MINERALIZATION: Normal. BONES: No acute fracture or dislocation. No worrisome bone lesions. Osteophytic lipping is identified at the level of the medial compartment. Patellar spurring is identified. JOINT: There is almost complete loss of the medial compartment. Degenerative changes are identified in the patellofemoral compartment. OTHER: No other significant finding. IMPRESSION: Degenerative changes as noted above TECHNICAL DOCUMENTATION: JOB ID: [id number] [employer]- All Rights Reserved Reading location - IP/workstation name: [email or web address]
--- NOTE | 2017-11-27 15:25 | RADIOLOGY REPORT (SQ) ---
EXAM DESCRIPTION: RIBS LEFT W/PA CHEST COMPLETED DATE/TIME: 11/27/2017 3:09 pm REASON FOR STUDY: Fall, left rib pain COMPARISON: None. TECHNIQUE: Frontal view of the chest and additional views of the left ribs acquired. NUMBER OF VIEWS: Five views LIMITATIONS: Study is limited due to the patient's condition and body habitus. FINDINGS: FRONTAL CXR: No pneumothorax. No pleural effusion. No atelectasis or infiltrates. RIBS: No displaced rib fractures. No lytic or blastic bony lesions. OTHER: No other significant finding. IMPRESSION: NO PNEUMOTHORAX. NO DISPLACED RIB FRACTURES. COMMENT: SITE OF TRAUMA/COMPLAINT MARKED/STAMP COMPLETED: No TECHNICAL DOCUMENTATION: JOB ID: [id number] [employer]- All Rights Reserved Reading location - IP/workstation name: [email or web address]
[2017-11-27 15:27] LABS: ABSOLUTE BASOPHILS # (AUTO) 0.1 10^3/uL (0.0-0.2); ABSOLUTE EOSINOPHILS # (AUTO) 0.5 10^3/uL (0.0-0.6); ABSOLUTE LYMPHOCYTES (AUTO) 2.7 10^3/uL (0.5-4.7); ABSOLUTE MONOCYTES (AUTO) 0.9 10^3/uL (0.1-1.4); ABSOLUTE NEUT (AUTO) 5.6 10^3/uL (1.7-8.2); BASOPHILS % (AUTO) 0.8 % (0-2); EOSINOPHILS % (AUTO) 5.1 % (0-6); HEMOGLOBIN 12.6 g/dL (13.5-17.0); LYMPHOCYTES % (AUTO) 27.6 % (13-45); MEAN CORPUSCULAR HEMOGLOBIN 28.3 pg (27.0-33.4); MEAN CORPUSCULAR HGB CONC 33.1 g/dL (32.0-36.0); MEAN CORPUSCULAR VOLUME 85 fl (80-97); PLATELET COUNT 220 10^3/uL (150-450); RED BLOOD COUNT 4.45 10^6/uL (4.35-5.55); RED CELL DISTRIBUTION WIDTH 15.4 % (11.5-14.0); SEGMENTED NEUTROPHILS % (AUTO) 57.5 % (42-78); TOTAL CELLS COUNTED % (AUTO) 100 %; WHITE BLOOD COUNT 9.8 10^3/uL (4.0-10.5)
[2017-11-27 15:41] LABS: ALANINE AMINOTRANSFERASE 23 U/L (21-72); ALBUMIN 3.3 g/dL (3.5-5.0); ALKALINE PHOSPHATASE 96 U/L (38-126); ANION GAP 5 (5-19); ASPARTATE AMINO TRANSFERASE 25 U/L (17-59); BILIRUBIN,DIRECT 0.3 mg/dL (0.0-0.4); BILIRUBIN,TOTAL 0.7 mg/dL (0.2-1.3); BLOOD UREA NITROGEN 12 mg/dL (7-20); CALCIUM 9.1 mg/dL (8.4-10.2); CARBON DIOXIDE 35 mmol/L (22-30); CHLORIDE 99 mmol/L (98-107); GLUCOSE 90 mg/dL (75-110); POTASSIUM 4.2 mmol/L (3.6-5.0); SODIUM 139.1 mmol/L (137-145); TOTAL PROTEIN 7.3 g/dL (6.3-8.2)
[2017-11-27] MEDS ORDERED: FENTANYL CITRATE INJ/PF 250 MCG/5 ML AMPULE IV ONE (16:10)
[2017-11-27] MEDS ORDERED: FENTANYL CITRATE INJ/PF 250 MCG/5 ML AMPULE IM ONE (16:13)
[2017-11-27] MEDS ORDERED: FENTANYL CITRATE INJ/PF 100 MCG/2 ML AMPUL IM ONE (16:41)
[2017-11-27 17:24] VITALS: BP 100/40
== END 2017-11-27 17:27 | disposition home or self-care (01) ==
LOC: ER 13:42
DX: S20.212A Contusion of left front wall of thorax, initial encounter (principal); S86.912A Strain of unspecified muscle(s) and tendon(s) at lower leg level, left leg, initial encounter; M17.12 Unilateral primary osteoarthritis, left knee; E66.01 Morbid (severe) obesity due to excess calories; R51 Headache; M54.2 Cervicalgia; W10.9XXA Fall (on) (from) unspecified stairs and steps, initial encounter; Y92.008 Other place in unspecified non-institutional (private) residence as the place of occurrence of the external cause; J44.9 Chronic obstructive pulmonary disease, unspecified; Z99.81 Dependence on supplemental oxygen; I50.9 Heart failure, unspecified; I11.0 Hypertensive heart disease with heart failure
CPT/HCPCS: 99284; 96372; 36415; 85025; 80053; 81001; 73562; 71101; J3010

== ENCOUNTER 2017-12-01 20:39 | Inpatient (IN) | payer MEDICARE, MEDICAID ==
--- NOTE | 2017-12-01 21:08 | EKG REPORT ---
SEVERITY:- ABNORMAL ECG - SINUS RHYTHM NONSPECIFIC INTRAVENTRICULAR CONDUCTION DELAY : Confirmed by: Rupa Rivas MD 01-Dec-2017 21:07:19
[2017-12-01 21:36] LABS: ABSOLUTE BASOPHILS # (AUTO) 0.1 10^3/uL (0.0-0.2); ABSOLUTE EOSINOPHILS # (AUTO) 0.6 10^3/uL (0.0-0.6); ABSOLUTE LYMPHOCYTES (AUTO) 2.3 10^3/uL (0.5-4.7); ABSOLUTE MONOCYTES (AUTO) 0.9 10^3/uL (0.1-1.4); ABSOLUTE NEUT (AUTO) 6.6 10^3/uL (1.7-8.2); BASOPHILS % (AUTO) 0.7 % (0-2); EOSINOPHILS % (AUTO) 5.5 % (0-6); HEMATOCRIT 40.2 % (37.9-51.0); HEMOGLOBIN 13.3 g/dL (13.5-17.0); LYMPHOCYTES % (AUTO) 22.2 % (13-45); MEAN CORPUSCULAR HEMOGLOBIN 28.6 pg (27.0-33.4); MEAN CORPUSCULAR HGB CONC 33.1 g/dL (32.0-36.0); MEAN CORPUSCULAR VOLUME 86 fl (80-97); MONOCYTES % (AUTO) 8.8 % (3-13); PLATELET COUNT 249 10^3/uL (150-450); RED BLOOD COUNT 4.66 10^6/uL (4.35-5.55); RED CELL DISTRIBUTION WIDTH 16.4 % (11.5-14.0); SEGMENTED NEUTROPHILS % (AUTO) 62.8 % (42-78); TOTAL CELLS COUNTED % (AUTO) 100 %; WHITE BLOOD COUNT 10.5 10^3/uL (4.0-10.5)
[2017-12-01 21:38] LABS: VENOUS BLOOD BASE EXCESS 5.3 mmol/L; VENOUS BLOOD HCO3 36.9 mmol/L (20-32); VENOUS BLOOD PH 7.2 (7.30-7.42)
[2017-12-01 21:48] LABS: ALANINE AMINOTRANSFERASE 20 U/L (21-72); ALBUMIN 3.6 g/dL (3.5-5.0); ALKALINE PHOSPHATASE 108 U/L (38-126); ASPARTATE AMINO TRANSFERASE 26 U/L (17-59); BILIRUBIN,DIRECT 0.6 mg/dL (0.0-0.4); BILIRUBIN,TOTAL 0.7 mg/dL (0.2-1.3); BLOOD UREA NITROGEN 17 mg/dL (7-20); CALCIUM 8.7 mg/dL (8.4-10.2); GLUCOSE 142 mg/dL (75-110); TOTAL PROTEIN 7.9 g/dL (6.3-8.2)
[2017-12-01 21:53] LABS: CARBON DIOXIDE 39 mmol/L (22-30); CHLORIDE 93 mmol/L (98-107); SODIUM 136.2 mmol/L (137-145)
[2017-12-01 21:58] LABS: VENOUS BLOOD PCO2 96.2 mmHg (35-63)
[2017-12-01 22:00] LABS: ANION GAP 4 (5-19)
--- NOTE | 2017-12-01 22:09 | ER Document Report ---
ED General - General Chief Complaint: Altered Mental Status Stated Complaint: ALTERED MENTAL STATUS Time Seen by Provider: 12/01/17 21:39 Notes: Patient is a 72-year-old male with a past medical history of morbid obesity, hyperlipidemia, COPD with chronic oxygen dependence who presents with altered mental status. The patient does not provide significant meaningful history due to some mild altered mental status at time of presentation. Family at the bedside does provide majority of history. They state that apparently earlier today the patient went down for a nap. When family tried to wake him up he was very difficult to wake. When he did wake up he seemed quite confused, and this identified his son as being a female. He has also had difficulty identifying his family at the bedside here in the emergency department. When EMS arrived to the house, patient was saturating 88% on 4 L by nasal cannula normally saturates into the mid 90s on 2 L by nasal cannula the patient was seen in the emergency department several days ago after a fall and sustained a left rib injury but did not sustain any fractures. Family notes that he has been mostly lying in bed since that time. He has had a cough but no fever, sputum production or constitutional symptoms. He has not yet followed up with his general doctor regarding his visit to the emergency department several days ago. He currently denies any symptoms, states he feels he is fine and does not know why he is here in the emergency department. TRAVEL OUTSIDE OF THE [place] IN LAST 30 DAYS: No - Related Data Allergies/Adverse Reactions: strawberry [[place]] Allergy (Unknown, Verified 08/29/17 05:42) morphine [Morphine] Adverse Reaction (Mild, Verified 08/29/17 05:42) redness to face Past Medical History - General Information source: Patient - Social History Smoking Status: Current Every Day Smoker Frequency of alcohol use: None Drug Abuse: None Lives with: Family Family History: Reviewed & Not Pertinent Patient has suicidal ideation: No Patient has homicidal ideation: No - Past Medical History Cardiac Medical History: Reports: Hx Congestive Heart Failure, Hx Hypertension Denies: Hx Heart Attack Pulmonary Medical History: Reports: Hx COPD Denies: Hx Asthma, Hx Tuberculosis Neurological Medical History: Denies: Hx Cerebrovascular Accident, Hx Seizures Endocrine Medical History: Reports: Hx Diabetes Mellitus Type 2 Renal/ Medical History: Denies: Hx Peritoneal Dialysis GI Medical History: Reports: Hx Gastroesophageal Reflux Disease. Denies: Hx Hepatitis, Hx Hiatal Hernia, Hx Ulcer Musculoskeletal Medical History: Reports Hx Arthritis Psychiatric Medical History: Denies: Hx Depression Infectious Medical History: Denies: Hx Hepatitis Past Surgical History: Reports: Hx Vascular Surgery - filter for DVt. Denies: Hx Open Heart Surgery, Hx Pacemaker - Immunizations Hx Diphtheria, Pertussis, Tetanus Vaccination: Yes Hx Pneumococcal Vaccination: 12/18/12 Review of Systems - Review of Systems Notes: Constitutional: Negative for fever. HENT: Negative for sore throat. Eyes: Negative for visual changes. Cardiovascular: Negative for chest pain. Respiratory: Positive for shortness of breath. Gastrointestinal: Negative for abdominal pain, vomiting or diarrhea. Genitourinary: Negative for dysuria. Musculoskeletal: Negative for back pain. Skin: Negative for rash. Neurological: Negative for headaches, weakness or numbness. Positive for altered mental status 10 point ROS negative except as marked above and in HPI. Physical Exam - Vital signs Vitals: Temp Pulse Resp BP Pulse Ox 97.8 F 70 19 130/70 H 92 12/01/17 21:24 12/01/17 21:24 12/01/17 21:24 12/01/17 21:24 12/01/17 21:24 Interpretation: Normal Notes: PHYSICAL EXAMINATION: GENERAL: Morbidly obese male, appears somewhat confused, mildly tachypneic but in no acute distress HEAD: Atraumatic, normocephalic. EYES: Pupils equal round and reactive to light, extraocular movements intact, sclera anicteric, conjunctiva are normal. ENT: nares patent, oropharynx clear without exudates. Moderately dry mucous membranes. NECK: Normal range of motion, supple without lymphadenopathy LUNGS: Diminished breath sounds at the bases bilaterally. Mild tachypnea. No wheezing. HEART: Regular rate and rhythm without murmurs ABDOMEN: Soft, nontender, normoactive bowel sounds. No guarding, no rebound. No masses appreciated. EXTREMITIES: Normal range of motion, no pitting or edema. No cyanosis. NEUROLOGICAL: No focal neurological deficits. Moves all extremities spontaneously and on command. PSYCH: Alert, orientedX3. SKIN: Warm, Dry, normal turgor, no rashes or lesions noted. Course - Re-evaluation Re-evalutation: 12/01/17 22:08 Patient presents with altered mental status likely secondary to hypercapnia with poor ventilatory effort versus possible acute pneumonia. Patient had a fall, injured left lower ribs without fractures on previous x-rays although family notes he has been lying in bed more, likely poor ventilatory effort. The patient is currently alert and oriented although family states that he still seems intermittently confused. Venous blood gas does show a pH of 7.2 with a PCO2 of 94 consistent with an respiratory acidosis which would also explain some of the patient's confusion. He was placed on BiPAP. Awaiting chest x-ray, complete laboratories. Patient does continue to have labored breathing, will continue to reassess at regular intervals. He is in guarded condition. 2300-patient has continued to tolerate BiPAP, now much more alert and conversant with family. Awaiting chest x-ray. He continues to be overall well in appearance. 12/02/17 00:23 Troponin noted to be in the indeterminate range, likely demand mediated in origin. Patient's mental status continues to improve on BiPAP. Continues to have improve ventilatory effort. Chest x-ray is clear. 12/02/17 01:41 Patient continues to wake easily, improved effort on bipap. Repeat VBG and troponin pending. Awaiting call back from . 12/02/17 03:[address] Smiley who has accepted the patient - Vital Signs Vital signs: Temp Pulse Resp BP Pulse Ox 97.8 F 70 19 154/55 H 95 12/01/17 21:24 12/02/17 00:00 12/02/17 00:42 12/02/17 00:42 12/02/17 00:42 - Laboratory Result Diagrams: 12/01/17 21:10 12/01/17 21:10 Laboratory results interpreted by me: 12/01/17 12/01/17 12/01/17 21:10 21:10 21:10 Hgb 13.3 L RDW 16.4 H VBG pH 7.20 L VBG pCO2 96.2 H* VBG HCO3 36.9 H Sodium 136.2 L Chloride 93 L Carbon Dioxide 39 H Anion Gap 4 L Glucose 142 H Direct Bilirubin 0.6 H ALT 20 L - Diagnostic Test Radiology reviewed: Image reviewed, Reports reviewed Radiology results interpreted by me: 12/02/17 03:13 Chest x-ray: No acute infiltrate or pneumothorax - EKG Interpretation by Me Additional EKG results interpreted by me: 12/02/17 03:14 Sinus rhythm. Rate 79. No ST elevations or depressions. QTC is 450. Critical Care Note - Critical Care Note Total time excluding time spent on procedures (mins): 36 Comments: Critical care time spent obtaining history from patient or surrogate, discussions with consultants, development of treatment plan with patient or surrogate, evaluation of patient's response to treatment, examination of patient , ordering and performing treatments and interventions, ordering and review of laboratory studies, re-evaluation of patient's condition, ordering and review of radiographic studies and review of old charts Discharge - Discharge Clinical Impression: Morbid obesity, Elevated troponin COPD (chronic obstructive pulmonary disease) Qualifiers: COPD type: unspecified COPD Qualified Code(s): J44.9 - Chronic obstructive pulmonary disease, unspecified Hypercapnic respiratory failure Qualifiers: Chronicity: acute Qualified Code(s): J96.02 - Acute respiratory failure with hypercapnia Condition: Fair Disposition: ADMITTED INPATIENT Admitting Provider: Sherice Unit Admitted: [facility]
[2017-12-01 22:43] LABS: TROPONIN I 0.049 ng/mL
--- NOTE | 2017-12-01 23:43 | RADIOLOGY REPORT (SQ) ---
XR CHEST 1 VIEW HISTORY: Hypoxia. COMPARISON: 08/29/2017 FINDINGS/IMPRESSION: Normal cardiomediastinal silhouette. Lungs are clear. No pleural effusion or pneumothorax is seen. Chronic deformity of the left clavicle, present on radiograph from 2013.
[2017-12-02] MEDS ORDERED: METHYLPREDNISOLONE INJ 125 MG/2 ML SDV IV ONE (00:25)
[2017-12-02] MEDS ORDERED: IPRATROPIUM/ALBUTEROL 0.5-2.5 MG/3 ML AMPUL NEB ONE (00:25)
[2017-12-02] MEDS ORDERED: ACETAMINOPHEN 325 MG TABLET PO PRN (03:08)
[2017-12-02] MEDS ORDERED: GLUCAGON,HUMAN RECOMB 1 MG INJ IM PRN (03:13)
[2017-12-02] MEDS ORDERED: DEXTROSE 50%-WATER 25 GM/50 ML DISP.SYRIN IV PRN ×2 (03:13)
[2017-12-02] MEDS ORDERED: DEXTROSE 40% GEL 15 GM TUBE PO PRN ×2 (03:13)
[2017-12-02] MEDS: IPRATROPIUM/ALBUTEROL 0.5-2.5 MG/3 ML AMPUL NEB SCH ×5 (04:26→20:02)
[2017-12-02 06:53] LABS: VENOUS BLOOD BASE EXCESS 6.9 mmol/L; VENOUS BLOOD PH 7.28 (7.30-7.42)
[2017-12-02 06:55] LABS: VENOUS BLOOD PCO2 81.5 mmHg (35-63)
[2017-12-02 07:32] LABS: CREATINE KINASE MB 0.72 ng/mL (<4.55); TROPONIN I 0.042 ng/mL
[2017-12-02] MEDS ORDERED: LEVALBUTEROL HCL NEB 0.63 MG/3 ML AMPUL NEB PRN (08:52)
[2017-12-02] MEDS ORDERED: ALBUTEROL SULFATE HFA (90 MCG/PUFF) 200 PUFF/8.5 GM MDI IH PRN (09:23)
[2017-12-02] MEDS ORDERED: OXYCODONE HCL IR 5 MG TABLET PO PRN ×2 (09:47→10:00)
[2017-12-02] MEDS ORDERED: (PENDING PHARMACY ID) (Pitavastatin Calcium [Livalo] 2 MG) PO SCH (10:00)
[2017-12-02] MEDS: ENOXAPARIN SODIUM INJ 40 MG/0.4 ML DISP.SYRIN SUBCUT SCH (10:04)
[2017-12-02] MEDS: CARVEDILOL 3.125 MG TABLET PO SCH ×2 (10:04→22:23)
[2017-12-02] MEDS: ASPIRIN 81 MG TABLET, ENT COATED PO SCH ×2 (10:04→22:22)
[2017-12-02] MEDS: CEFEPIME 2 GM/D5W RTU 2 GM/50 ML RTUPB IV SCH ×2 (10:05→22:20)
[2017-12-02 10:45] LABS: TROPONIN I 0.032 ng/mL
[2017-12-02 11:04] LABS: CREATINE KINASE MB 0.63 ng/mL (<4.55)
[2017-12-02] MEDS: BUMETANIDE 1 MG TABLET PO SCH ×2 (11:11→17:34)
[2017-12-02] MEDS: INSULIN LISPRO 100 UNIT/ML 3 ML VIAL SUBCUT PRN ×3 (12:44→22:26)
[2017-12-02 12:53] LABS: ARTERIAL BLOOD BASE EXCESS 9.5 mmol/L; ARTERIAL BLOOD H2CO3 2.16 mmol/L (1.05-1.35); ARTERIAL BLOOD O2 SATURATION 94.9 % (94-98); ARTERIAL BLOOD PH 7.34 (7.35-7.45); ARTERIAL BLOOD TOTAL CO2 40.2 mmol/L (23-27)
[2017-12-02 12:55] LABS: ARTERIAL BLOOD FIO2 35%
[2017-12-02 12:56] LABS: ARTERIAL BLOOD PCO2 71.7 mmHg (35-45)
--- NOTE | 2017-12-02 13:22 | PDOC H&P ---
History of Present Illness Admission Date/PCP: 12/02/17 02:45 SONG BENNETT MD Patient complains of: Altered mental status History of Present Illness: BRUCE KNOX is a 72 year old male This is a 72-year-old male with a history of the morbid obesity history of the sleep apnea not wearing the CPAP and history of the COPD with oxygen dependent history of the congestive heart failure history of the chronic DVT status post IVC filter unable to take the anticoagulations due to the ongoing bleeding issue stop by the [facility] 2 days back in the emergency department with a history of the fall and initial chest x-ray and any x-ray was all stable without any fracture patient was discharged home was noticed with the family that patient was yesterday underwent for the sleep and this morning patient had a difficult to wake him up and patient was brought to the emergency department but patient's PCO2 about 90 which consistence with the respiratory acidosis and a hypercapnic respiratory failure patient initially put on the BiPAP in response very well I saw the patient's the daughters at the bedside and the patient is able to open the eyes and patient's still confused but answers the questions Patients also see Dr. Guardado as outpatients for the heart failure As per discussed with the cardiology Dr. Rivas patient's currently does not have any heart issue most likely COPD and respiratory failure consult to Dr. Pastrana discussed with him adjust the BiPAP Is currently not in any acute distress on the BiPAP NPH and the CO2 is all improving Also discussed with the family the patient was coughing with greenish sputum discharge for the last 3-4 days No fever no chills Past Medical History Cardiac Medical History: Reports: Congestive Heart Failure, Hypertension Denies: Myocardial Infarction Pulmonary Medical History: Reports: Chronic Obstructive Pulmonary Disease (COPD) , Respiratory Failure, Sleep Apnea Denies: Asthma, Tuberculosis Neurological Medical History: Denies: Seizures Endocrine Medical History: Reports: Diabetes Mellitus Type 2 GI Medical History: Reports: Gastroesophageal Reflux Disease Denies: Hepatitis, Hiatal Hernia Musculoskeltal Medical History: Reports: Arthritis Psychiatric Medical History: Denies: Depression Hematology: Denies: Anemia, Sickle Cell Disease Past Surgical History Past Surgical History: Reports: Vascular Surgery - filter for DVt Denies: Pacemaker Social History Information Source: Relative Lives with: Family Smoking Status: Never Smoker Frequency of Alcohol Use: Rare Hx Recreational Drug Use: No Drugs: None Hx Prescription Drug Abuse: No Family History Family History: Reviewed & Not Pertinent Parental Family History Reviewed: Yes Children Family History Reviewed: Yes Sibling(s) Family History Reviewed.: Yes Medication/Allergy Home Medications: Aspirin [Adult Low Dose Aspirin EC] 81 mg PO Q12 08/29/17 Bumetanide [Bumex 1 mg Tablet] 1 mg PO BID 08/29/17 Carvedilol [Coreg 3.125 mg Tablet] 3.125 mg PO Q12 08/29/17 Linaclotide [Linzess] 290 mcg PO Q6AM 08/29/17 Metformin HCl [Glucophage XR 500 mg Tablet] 500 mg PO QPM 08/29/17 Naloxone HCl [Evzio] 0.4 mg INJ ASDIR PRN 08/29/17 Oxycodone HCl 7.5 mg PO Q4HP PRN MDD 3 TABS PER DAY 08/29/17 Albuterol Sulfate [Ventolin HFA MDI 18 GM] 1 puff IH Q8HP PRN 12/02/17 Cyclobenzaprine HCl 10 mg PO Q8 PRN 12/02/17 Pitavastatin Calcium [Livalo] 2 mg PO DAILY 12/02/17 Allergies/Adverse Reactions: strawberry [[place]] Allergy (Unknown, Verified 12/02/17 09:45) morphine [Morphine] Adverse Reaction (Mild, Verified 12/02/17 09:45) redness to face Review of Systems ROS unobtainable: Due to mental status All systems: reviewed and no additional remarkable complaints except as stated Physical Exam Vital Signs: Temp Pulse Resp BP Pulse Ox 98.4 F 80 12 132/57 H 93 12/02/17 07:12 12/02/17 08:14 12/02/17 08:14 12/02/17 07:12 12/02/17 08:14 Intake & Output 12/01/17 12/02/17 12/03/17 06:59 06:59 06:59 Intake Total 50 Output Total 500 325 Balance -500 -275 Weight 161.3 kg Physical Exam: Patient still confused but open the eyes and answer the questions General appearance: PRESENT: no acute distress, obese, well-developed, well- nourished Head exam: PRESENT: atraumatic, normocephalic Eye exam: PRESENT: conjunctiva pink, EOMI, PERRLA. ABSENT: scleral icterus Ear exam: PRESENT: normal external ear exam Mouth exam: PRESENT: moist, tongue midline Neck exam: PRESENT: full ROM. ABSENT: carotid bruit, JVD, lymphadenopathy, thyromegaly Respiratory exam: PRESENT: decreased breath sounds Cardiovascular exam: PRESENT: RRR. ABSENT: diastolic murmur, rubs, systolic murmur Pulses: PRESENT: normal dorsalis pedis pul, +2 pedal pulses bilateral Vascular exam: PRESENT: normal capillary refill GI/Abdominal exam: PRESENT: normal bowel sounds, soft. ABSENT: distended, guarding, mass, organolmegaly, rebound, tenderness Rectal exam: PRESENT: deferred Extremities exam: ABSENT: pedal edema Neurological exam: PRESENT: alert, altered, awake. ABSENT: motor sensory deficit Psychiatric exam: PRESENT: appropriate affect, normal mood. ABSENT: homicidal ideation, suicidal ideation Skin exam: PRESENT: dry, intact, warm. ABSENT: cyanosis, rash Results Laboratory Results: 12/02/17 12/02/17 06:33 12:35 Carbonic Acid 2.16 H HCO3/H2CO3 Ratio 17:1 ABG pH 7.34 L ABG pCO2 71.7 H* ABG pO2 81.0 ABG HCO3 38.0 H ABG O2 Saturation 94.9 ABG Base Excess 9.5 VBG pH 7.28 L VBG pCO2 81.5 H* VBG HCO3 37.0 H VBG Base Excess 6.9 FiO2 35% 12/02/17 12/02/17 12/02/17 04:07 04:07 06:33 Creatine Kinase Cancelled CK-MB (CK-2) Cancelled 0.72 Troponin I Cancelled 0.042 12/02/17 12/02/17 12/02/17 06:33 10:01 10:01 Creatine Kinase 43 L 34 L CK-MB (CK-2) 0.63 Troponin I 0.032 Impressions: Chest X-Ray 12/01/17 21:40 FINDINGS/IMPRESSION: Normal cardiomediastinal silhouette. Lungs are clear. No pleural effusion or pneumothorax is seen. Chronic deformity of the left clavicle, present on radiograph from 2013. Assessment & Plan - Diagnosis (1) Hypercapnic respiratory failure Qualifiers: Chronicity: acute Qualified Code(s): J96.02 - Acute respiratory failure with hypercapnia Is this a current diagnosis for this admission?: Yes Plan: Continues to the BiPAP follow with the Dr. Pastrana start the patient on antibiotic to cover the underlying pneumonia with the cough and the sputum discharge will get the sputum culture (2) COPD (chronic obstructive pulmonary disease) Qualifiers: COPD type: unspecified COPD Qualified Code(s): J44.9 - Chronic obstructive pulmonary disease, unspecified Is this a current diagnosis for this admission?: Yes Plan: Continues to nebulizer treatments (3) Congestive heart failure Qualifiers: Heart failure type: combined systolic and diastolic Heart failure chronicity: acute Qualified Code(s): I50.41 - Acute combined systolic ( congestive) and diastolic (congestive) heart failure Is this a current diagnosis for this admission?: Yes Plan: Continues to current medications (4) Fall Qualifiers: Encounter type: initial encounter Qualified Code(s): W19.XXXA - Unspecified fall, initial encounter Is this a current diagnosis for this admission?: Yes Plan: Will get the physical therapy evaluations once the patient is stable respiratory espinoza (5) Hypertension Qualifiers: Hypertension type: essential hypertension Qualified Code(s): I10 - Essential (primary) hypertension Is this a current diagnosis for this admission?: Yes (6) Recurrent deep vein thrombosis (DVT) Is this a current diagnosis for this admission?: Yes Plan: Status post IVC filter patient had a lot of issue with the bleeding on Coumadin and other anticoagulations Patient/admission ultrasound was done was negative for any DVT (7) Sleep apnea Qualifiers: Sleep apnea type: unspecified type Qualified Code(s): G47.30 - Sleep apnea , unspecified Is this a current diagnosis for this admission?: Yes Plan: Patient is very claustrophobic and unable to wear the CPAP and very noncompliance with the CPAP discussed with the patient's daughterPatients definitely need a CPAP to follow with the sleep clinic for further different mask (8) Obesity Qualifiers: Obesity type: unspecified obesity type Obesity classification: unspecified obesity classification Is this a current diagnosis for this admission?: Yes - Time Time Spent: 50 to 70 Minutes Medications reviewed and adjusted accordingly: Yes Anticipated discharge: Other Within: Other - Inpatient Certification Based on my medical assessment, after consideration of the patient's comorbidities, presenting symptoms, or acuity I expect that the services needed warrant INPATIENT care.: Yes I certify that my determination is in accordance with my understanding of Medicare's requirements for reasonable and necessary INPATIENT services [42 CFR 412.3e].: Yes Medical Necessity: Need Close Monitoring Due to Risk of Patient Decompensation, Need for IV Antibiotics Post Hospital Care: D/C Decision Science Analyst Documentation - Plan Summary Plan Summary: Admit the patient in IMCU Discussed with the daughter on the bedside regarding the patient's current conditions Consult the pulmonary and cardiology
[2017-12-02] MEDS: OXYCODONE-ACETAMINOPHEN 5-325 MG TABLET PO PRN ×2 (14:54→19:30)
--- NOTE | 2017-12-02 15:15 | PDOC CONSULTATION ---
Consultation Consult Date: 12/02/17 Attending physician:: SONG BENNETT Consult reason:: Respiratory failure History of Present Illness Admission Date/PCP: 12/02/17 02:45 SONG BENNETT MD History of Present Illness: BRUCE KNOX is a 72 year old male, with increasing shortness of breath patient has a hypoxic respiratory failure and COPD as well as obesity hypoventilation and obstructive sleep apnea patient admits to be having little to no compliance with his CPAP denies any history of chronic lung disease as a child or his PPD is unknown he admits to exposure to passive smoke as a child and as an adult he said he denies of having smoke he denies having exposure to potential respiratory stimuli as an adult he has no pets no recent travel he denies angina -like chest pain sleeps on a hospital bed at approximately 45 degrees and angle occasional PND occasional nocturnal cough chronic edema he admits to snoring restless sleep nocturia 2-3 times per night unrestful sleep and excessive daytime somnolence. Past Medical History Cardiac Medical History: Reports: Congestive Heart Failure, Hypertension Denies: Myocardial Infarction Pulmonary Medical History: Reports: Chronic Obstructive Pulmonary Disease (COPD) , Respiratory Failure, Sleep Apnea Denies: Asthma, Tuberculosis Neurological Medical History: Denies: Seizures Endocrine Medical History: Reports: Diabetes Mellitus Type 2 GI Medical History: Reports: Gastroesophageal Reflux Disease Denies: Hepatitis, Hiatal Hernia Musculoskeltal Medical History: Reports: Arthritis Psychiatric Medical History: Denies: Depression Hematology: Denies: Anemia, Sickle Cell Disease Past Surgical History Past Surgical History: Reports: Vascular Surgery - filter for DVt Denies: Pacemaker Social History Lives with: Family Smoking Status: Never Smoker Passive smoke exposure as: Both Frequency of Alcohol Use: Rare Hx Recreational Drug Use: No Drugs: None Hx Prescription Drug Abuse: No Do you have pets?: No Have you had any respiratory illnesses as a child?: No Have you been exposed to any sick contacts recently?: No Have you had any recent respiratory illnesses?: No Have you travelled outside of [place] in the past 12 months?: No Family History Family History: Hypertension, Malignancy Parental Family History Reviewed: Yes Children Family History Reviewed: Yes Sibling(s) Family History Reviewed.: Yes Medication/Allergy Home Medications: Aspirin [Adult Low Dose Aspirin EC] 81 mg PO Q12 08/29/17 Bumetanide [Bumex 1 mg Tablet] 1 mg PO BID 08/29/17 Carvedilol [Coreg 3.125 mg Tablet] 3.125 mg PO Q12 08/29/17 Linaclotide [Linzess] 290 mcg PO Q6AM 08/29/17 Metformin HCl [Glucophage XR 500 mg Tablet] 500 mg PO QPM 08/29/17 Naloxone HCl [Evzio] 0.4 mg INJ ASDIR PRN 08/29/17 Oxycodone HCl 7.5 mg PO Q4HP PRN MDD 3 TABS PER DAY 08/29/17 Albuterol Sulfate [Ventolin HFA MDI 18 GM] 1 puff IH Q8HP PRN 12/02/17 Cyclobenzaprine HCl 10 mg PO Q8 PRN 12/02/17 Pitavastatin Calcium [Livalo] 2 mg PO DAILY 12/02/17 Allergies/Adverse Reactions: strawberry [[place]] Allergy (Unknown, Verified 12/02/17 09:45) morphine [Morphine] Adverse Reaction (Mild, Verified 12/02/17 09:45) redness to face Review of Systems Constitutional: PRESENT: fatigue. ABSENT: anorexia, chills, fever(s), headache( s), night sweats Eyes: ABSENT: visual disturbances Ears: ABSENT: hearing changes Nose, Mouth, and Throat: ABSENT: mouth pain, sore throat Cardiovascular: ABSENT: palpitations Gastrointestinal: PRESENT: abdominal pain. ABSENT: bloating, coffee ground emesis, dysphagia, hematemesis, hematochezia, melena Genitourinary: ABSENT: dysuria, hematuria Musculoskeletal: ABSENT: deformity, joint swelling Integumentary: ABSENT: lesions, pruritus, rash Neurological: ABSENT: abnormal movements, abnormal speech, confusion, memory loss Psychiatric: ABSENT: hallucinations, homidical ideation, suicidal ideation Endocrine: ABSENT: cold intolerance, heat intolerance, polydipsia, polyphagia Hematologic/Lymphatic: ABSENT: easy bruising Allergic/Immunologic: ABSENT: seasonal rhinorrhea Physical Exam Vital Signs: Temp Pulse Resp BP Pulse Ox 98.8 F 83 18 130/54 H 93 12/02/17 11:35 12/02/17 13:25 12/02/17 13:25 12/02/17 11:35 12/02/17 13:25 Pulse Oximeter Continuous Start: 12/02/17 08: 51 Freq: RTQ4 Status: Active Document 12/02/17 13:25 [facility] [place]Rec: 12/02/17 13:36 [facility] [id number] Pulse Oximetry Assessment Oxygen Saturation (92-100) 93 Oxygen Flow Rate (L/min) 4 Oxygen Delivery Method Nasal Cannula Fraction of Inspired Oxygen (FIO2) 36 Equipment Usage Initial Set Up Continuous SpO2 Machine # N 11 Intake & Output 12/01/17 12/02/17 12/03/17 06:59 06:59 06:59 Intake Total 50 Output Total 500 325 Balance -500 -275 Weight 161.3 kg General appearance: PRESENT: no acute distress, cooperative, disheveled, morbidly obese Head exam: PRESENT: atraumatic, normocephalic Eye exam: PRESENT: conjunctiva pale, EOMI. ABSENT: nystagmus, scleral icterus Mouth exam: PRESENT: dry mucosa, neck supple, tongue midline Neck exam: ABSENT: carotid bruit, JVD, lymphadenopathy, thyromegaly, tracheal deviation, tracheostomy Respiratory exam: PRESENT: decreased breath sounds, prolonged expiratory phas, rhonchi, unlabored, wheezes. ABSENT: rales, retraction Cardiovascular exam: PRESENT: RRR, +S1, +S2. ABSENT: irregular rhythm Pulses: PRESENT: normal radial pulses GI/Abdominal exam: PRESENT: soft, tenderness - Left lower quadrant no rebound: No guarding Extremities exam: PRESENT: pedal edema. ABSENT: calf tenderness, clubbing, joint swelling Musculoskeletal exam: ABSENT: deformity, dislocation Neurological exam: PRESENT: alert, awake Psychiatric exam: PRESENT: flat affect Skin exam: PRESENT: dry, warm Results Laboratory Results: 12/02/17 12/02/17 06:33 12:35 Carbonic Acid 2.16 H HCO3/H2CO3 Ratio 17:1 ABG pH 7.34 L ABG pCO2 71.7 H* ABG pO2 81.0 ABG HCO3 38.0 H ABG O2 Saturation 94.9 ABG Base Excess 9.5 VBG pH 7.28 L VBG pCO2 81.5 H* VBG HCO3 37.0 H VBG Base Excess 6.9 FiO2 35% 12/02/17 12/02/17 12/02/17 04:07 04:07 06:33 Creatine Kinase Cancelled CK-MB (CK-2) Cancelled 0.72 Troponin I Cancelled 0.042 12/02/17 12/02/17 12/02/17 06:33 10:01 10:01 Creatine Kinase 43 L 34 L CK-MB (CK-2) 0.63 Troponin I 0.032 Impressions: Chest X-Ray 12/01/17 21:40 FINDINGS/IMPRESSION: Normal cardiomediastinal silhouette. Lungs are clear. No pleural effusion or pneumothorax is seen. Chronic deformity of the left clavicle, present on radiograph from 2014. Assessment & Plan - Diagnosis (1) Hypercapnic respiratory failure Qualifiers: Chronicity: acute Qualified Code(s): J96.02 - Acute respiratory failure with hypercapnia Is this a current diagnosis for this admission?: Yes Plan: Secondary to COPD plus minus obesity hypoventilation syndrome (2) Morbid obesity Is this a current diagnosis for this admission?: Yes (3) COPD (chronic obstructive pulmonary disease) Qualifiers: COPD type: unspecified COPD Qualified Code(s): J44.9 - Chronic obstructive pulmonary disease, unspecified Is this a current diagnosis for this admission?: Yes Plan: Laba plus long acting muscarinic agent as needed albuterol (4) Sleep apnea Qualifiers: Sleep apnea type: unspecified type Qualified Code(s): G47.30 - Sleep apnea , unspecified Is this a current diagnosis for this admission?: Yes Plan: CPAP from home but is admits to noncompliance
[2017-12-02 16:25] LABS: CREATINE KINASE MB 0.44 ng/mL (<4.55); TROPONIN I 0.031 ng/mL
[2017-12-02] MEDS: METFORMIN HCL 500 MG TABLET PO SCH (22:23)
[2017-12-02] MEDS: LIVALO 2 MG PO SCH (22:24)
[2017-12-03] MEDS: IPRATROPIUM/ALBUTEROL 0.5-2.5 MG/3 ML AMPUL NEB SCH ×6 (00:07→19:51)
[2017-12-03 05:23] LABS: ABSOLUTE LYMPHOCYTES (AUTO) 2.4 10^3/uL (0.5-4.7); ABSOLUTE MONOCYTES (AUTO) 1.2 10^3/uL (0.1-1.4); ABSOLUTE NEUT (AUTO) 10.9 10^3/uL (1.7-8.2); BASOPHILS % (AUTO) 0.1 % (0-2); HEMATOCRIT 35.5 % (37.9-51.0); HEMOGLOBIN 11.6 g/dL (13.5-17.0); LYMPHOCYTES % (AUTO) 16.7 % (13-45); MEAN CORPUSCULAR HGB CONC 32.8 g/dL (32.0-36.0); MEAN CORPUSCULAR VOLUME 85 fl (80-97); MONOCYTES % (AUTO) 8.2 % (3-13); PLATELET COUNT 225 10^3/uL (150-450); RED BLOOD COUNT 4.16 10^6/uL (4.35-5.55); RED CELL DISTRIBUTION WIDTH 15.8 % (11.5-14.0); TOTAL CELLS COUNTED % (AUTO) 100 %; WHITE BLOOD COUNT 14.5 10^3/uL (4.0-10.5)
[2017-12-03 05:49] LABS: ANION GAP 5 (5-19); BLOOD UREA NITROGEN 28 mg/dL (7-20); CALCIUM 8.7 mg/dL (8.4-10.2); CARBON DIOXIDE 36 mmol/L (22-30); CHLORIDE 96 mmol/L (98-107); GLUCOSE 129 mg/dL (75-110); POTASSIUM 4.6 mmol/L (3.6-5.0); SODIUM 137.1 mmol/L (137-145)
[2017-12-03] MEDS: OXYCODONE-ACETAMINOPHEN 5-325 MG TABLET PO PRN ×4 (06:11→21:48)
[2017-12-03] MEDS: CYCLOBENZAPRINE HCL 10 MG TABLET PO PRN ×2 (06:12→19:53)
[2017-12-03 08:43] LABS: ARTERIAL BLOOD BASE EXCESS 9.8 mmol/L; ARTERIAL BLOOD HCO3 38.7 mmol/L (20-24); ARTERIAL BLOOD PH 7.32 (7.35-7.45); ARTERIAL BLOOD PO2 83.5 mmHg (80-100)
[2017-12-03 08:44] LABS: ARTERIAL BLOOD FIO2 4 L
[2017-12-03 08:45] LABS: ARTERIAL BLOOD PCO2 76.3 mmHg (35-45)
[2017-12-03] MEDS: METFORMIN HCL 500 MG TABLET PO SCH ×2 (09:52→21:46)
[2017-12-03] MEDS: ASPIRIN 81 MG TABLET, ENT COATED PO SCH ×2 (09:53→21:46)
[2017-12-03] MEDS: BUMETANIDE 1 MG TABLET PO SCH ×2 (09:53→17:45)
[2017-12-03] MEDS: ENOXAPARIN SODIUM INJ 40 MG/0.4 ML DISP.SYRIN SUBCUT SCH (09:54)
[2017-12-03] MEDS: CARVEDILOL 3.125 MG TABLET PO SCH ×2 (09:54→21:47)
[2017-12-03] MEDS: CEFEPIME 2 GM/D5W RTU 2 GM/50 ML RTUPB IV SCH ×2 (09:55→21:48)
[2017-12-03] MEDS: POLYETHYLENE GLYCOL 3350 POWDER 17 GM/1 PACKET PO PRN (11:12)
[2017-12-03] MEDS: DOCUSATE SODIUM 100 MG CAPSULE PO SCH ×2 (11:12→17:46)
--- NOTE | 2017-12-03 14:50 | PDOC PROGRESS REPORT ---
Subjective Progress Note for:: 12/03/17 Subjective:: About the same Reason For Visit: RESPIRATORY FAILURE Physical Exam Vital Signs: Temp Pulse Resp BP Pulse Ox 97.9 F 70 14 145/63 H 96 12/03/17 11:30 12/03/17 11:51 12/03/17 11:51 12/03/17 11:30 12/03/17 11:51 Pulse Oximeter Continuous Start: 12/02/17 08: 51 Freq: RTQ4 Status: Active Document 12/03/17 11:51 [facility] (Rec: 12/03/17 12:02 [facility] [id number]) Pulse Oximetry Assessment Oxygen Saturation (92-100) 96 Oxygen Flow Rate (L/min) 4 Oxygen Delivery Method Nasal Cannula Equipment Usage Equipment in Use Continuous SpO2 Machine # [id number] Intake & Output 12/02/17 12/03/17 12/04/17 06:59 06:59 06:59 Intake Total 1785 550 Output Total 500 575 500 Balance -500 1210 50 Weight 161.3 kg 161.4 kg General appearance: PRESENT: no acute distress, disheveled, morbidly obese Head exam: PRESENT: atraumatic, normocephalic Eye exam: PRESENT: conjunctiva pale, EOMI. ABSENT: nystagmus, scleral icterus Mouth exam: PRESENT: dry mucosa, neck supple, tongue midline Neck exam: ABSENT: carotid bruit, JVD, lymphadenopathy, thyromegaly, tracheal deviation, tracheostomy Respiratory exam: PRESENT: decreased breath sounds, prolonged expiratory phas, rhonchi, unlabored. ABSENT: retraction, stridor Cardiovascular exam: PRESENT: RRR, +S1, +S2 Pulses: PRESENT: normal radial pulses GI/Abdominal exam: PRESENT: soft. ABSENT: tenderness Extremities exam: PRESENT: pedal edema. ABSENT: calf tenderness, clubbing, joint swelling Musculoskeletal exam: ABSENT: ambulatory, deformity, dislocation Neurological exam: PRESENT: awake, oriented to person, oriented to place. ABSENT: oriented to time, oriented to situation Psychiatric exam: PRESENT: flat affect Skin exam: PRESENT: dry, warm Results Laboratory Results: 12/03/17 04:21 12/03/17 04:21 12/03/17 12/03/17 12/03/17 04:21 04:21 08:20 WBC 14.5 H RBC 4.16 L Hgb 11.6 L Hct 35.5 L MCV 85 MCH 28.0 MCHC 32.8 RDW 15.8 H Plt Count 225 Seg Neutrophils % 75.0 Lymphocytes % 16.7 Monocytes % 8.2 Eosinophils % 0.0 Basophils % 0.1 Absolute Neutrophils 10.9 H Absolute Lymphocytes 2.4 Absolute Monocytes 1.2 Absolute Eosinophils 0.0 Absolute Basophils 0.0 Carbonic Acid 2.30 H HCO3/H2CO3 Ratio 16:1 ABG pH 7.32 L ABG pCO2 76.3 H* ABG pO2 83.5 ABG HCO3 38.7 H ABG O2 Saturation 95.0 ABG Base Excess 9.8 FiO2 4 L Sodium 137.1 Potassium 4.6 Chloride 96 L Carbon Dioxide 36 H Anion Gap 5 BUN 28 H Creatinine 0.88 Est GFR ( Amer) > 60 Est GFR (Non-Af Amer) > 60 Glucose 129 H Calcium 8.7 12/02/17 12/02/17 12/02/17 04:07 04:07 06:33 Creatine Kinase Cancelled CK-MB (CK-2) Cancelled 0.72 Troponin I Cancelled 0.042 12/02/17 12/02/17 12/02/17 06:33 10:01 10:01 Creatine Kinase 43 L 34 L CK-MB (CK-2) 0.63 Troponin I 0.032 12/02/17 12/02/17 15:45 15:45 Creatine Kinase 32 L CK-MB (CK-2) 0.44 Troponin I 0.031 Impressions: Chest X-Ray 12/01/17 21:40 FINDINGS/IMPRESSION: Normal cardiomediastinal silhouette. Lungs are clear. No pleural effusion or pneumothorax is seen. Chronic deformity of the left clavicle, present on radiograph from 2013. Assessment & Plan - Diagnosis (1) Hypercapnic respiratory failure Qualifiers: Chronicity: acute Qualified Code(s): J96.02 - Acute respiratory failure with hypercapnia Is this a current diagnosis for this admission?: Yes Plan: Unchanged stable (2) Morbid obesity Is this a current diagnosis for this admission?: Yes (3) COPD (chronic obstructive pulmonary disease) Qualifiers: COPD type: unspecified COPD Qualified Code(s): J44.9 - Chronic obstructive pulmonary disease, unspecified Is this a current diagnosis for this admission?: Yes Plan: Laba plus long acting muscarinic agent as needed albuterol (4) Sleep apnea Qualifiers: Sleep apnea type: unspecified type Qualified Code(s): G47.30 - Sleep apnea , unspecified Is this a current diagnosis for this admission?: Yes Plan: CPAP from home but is admits to noncompliance
--- NOTE | 2017-12-03 17:07 | PDOC PROGRESS REPORT ---
Subjective Progress Note for:: 12/03/17 Subjective:: pt is doing fair more alert and awke cont on bipap Reason For Visit: RESPIRATORY FAILURE Physical Exam Vital Signs: Temp Pulse Resp BP Pulse Ox 97.9 F 64 14 145/63 H 96 12/03/17 11:30 12/03/17 14:00 12/03/17 11:51 12/03/17 11:30 12/03/17 11:51 Pulse Oximeter Continuous Start: 12/02/17 08: 51 Freq: RTQ4 Status: Active Document 12/03/17 11:51 [facility] (Rec: 12/03/17 12:02 [facility] [id number]) Pulse Oximetry Assessment Oxygen Saturation (92-100) 96 Oxygen Flow Rate (L/min) 4 Oxygen Delivery Method Nasal Cannula Equipment Usage Equipment in Use Continuous SpO2 Machine # N-[id number] Intake & Output 12/02/17 12/03/17 12/04/17 06:59 06:59 06:59 Intake Total 1785 550 Output Total 500 575 500 Balance -500 1210 50 Weight 161.3 kg 161.4 kg General appearance: PRESENT: no acute distress Eye exam: PRESENT: PERRLA Mouth exam: PRESENT: neck supple Neck exam: PRESENT: JVD. ABSENT: carotid bruit, full ROM, lymphadenopathy, meningismus, tenderness, thyromegaly, tracheal deviation, tracheostomy, other Respiratory exam: PRESENT: clear to auscultation mona Cardiovascular exam: PRESENT: +S1, +S2 GI/Abdominal exam: PRESENT: normal bowel sounds, soft Neurological exam: PRESENT: alert, awake, oriented to person, oriented to place Skin exam: PRESENT: dry Results Laboratory Results: 12/03/17 04:21 12/03/17 04:21 12/03/17 12/03/17 12/03/17 04:21 04:21 08:20 WBC 14.5 H RBC 4.16 L Hgb 11.6 L Hct 35.5 L MCV 85 MCH 28.0 MCHC 32.8 RDW 15.8 H Plt Count 225 Seg Neutrophils % 75.0 Lymphocytes % 16.7 Monocytes % 8.2 Eosinophils % 0.0 Basophils % 0.1 Absolute Neutrophils 10.9 H Absolute Lymphocytes 2.4 Absolute Monocytes 1.2 Absolute Eosinophils 0.0 Absolute Basophils 0.0 Carbonic Acid 2.30 H HCO3/H2CO3 Ratio 16:1 ABG pH 7.32 L ABG pCO2 76.3 H* ABG pO2 83.5 ABG HCO3 38.7 H ABG O2 Saturation 95.0 ABG Base Excess 9.8 FiO2 4 L Sodium 137.1 Potassium 4.6 Chloride 96 L Carbon Dioxide 36 H Anion Gap 5 BUN 28 H Creatinine 0.88 Est GFR ( Amer) > 60 Est GFR (Non-Af Amer) > 60 Glucose 129 H Calcium 8.7 12/03/17 01:04 Sputum Gram Stain - Final 12/03/17 01:04 Sputum Sputum Culture - Final 12/02/17 12/02/17 12/02/17 04:07 04:07 06:33 Creatine Kinase Cancelled CK-MB (CK-2) Cancelled 0.72 Troponin I Cancelled 0.042 12/02/17 12/02/17 12/02/17 06:33 10:01 10:01 Creatine Kinase 43 L 34 L CK-MB (CK-2) 0.63 Troponin I 0.032 12/02/17 12/02/17 15:45 15:45 Creatine Kinase 32 L CK-MB (CK-2) 0.44 Troponin I 0.031 Impressions: Chest X-Ray 12/01/17 21:40 FINDINGS/IMPRESSION: Normal cardiomediastinal silhouette. Lungs are clear. No pleural effusion or pneumothorax is seen. Chronic deformity of the left clavicle, present on radiograph from 2013. Assessment & Plan - Diagnosis (1) Hypercapnic respiratory failure Qualifiers: Chronicity: acute Qualified Code(s): J96.02 - Acute respiratory failure with hypercapnia Is this a current diagnosis for this admission?: Yes Plan: Continues to the BiPAP follow with the Dr. Pastrana start the patient on antibiotic to cover the underlying pneumonia with the cough and the sputum discharge will get the sputum culture (2) COPD (chronic obstructive pulmonary disease) Qualifiers: COPD type: unspecified COPD Qualified Code(s): J44.9 - Chronic obstructive pulmonary disease, unspecified Is this a current diagnosis for this admission?: Yes Plan: Continues to nebulizer treatments (3) Congestive heart failure Qualifiers: Heart failure type: combined systolic and diastolic Heart failure chronicity: acute Qualified Code(s): I50.41 - Acute combined systolic ( congestive) and diastolic (congestive) heart failure Is this a current diagnosis for this admission?: Yes Plan: Continues to current medications (4) Fall Qualifiers: Encounter type: initial encounter Qualified Code(s): W19.XXXA - Unspecified fall, initial encounter Is this a current diagnosis for this admission?: Yes Plan: Will get the physical therapy evaluations once the patient is stable respiratory espinoza (5) Hypertension Qualifiers: Hypertension type: essential hypertension Qualified Code(s): I10 - Essential (primary) hypertension Is this a current diagnosis for this admission?: Yes Plan: stable (6) Recurrent deep vein thrombosis (DVT) Is this a current diagnosis for this admission?: Yes Plan: Status post IVC filter patient had a lot of issue with the bleeding on Coumadin and other anticoagulations Patient/admission ultrasound was done was negative for any DVT (7) Sleep apnea Qualifiers: Sleep apnea type: unspecified type Qualified Code(s): G47.30 - Sleep apnea , unspecified Is this a current diagnosis for this admission?: Yes Plan: Patient is very claustrophobic and unable to wear the CPAP and very noncompliance with the CPAP discussed with the patient's daughterPatients definitely need a CPAP to follow with the sleep clinic for further different mask (8) Obesity Qualifiers: Obesity type: unspecified obesity type Obesity classification: unspecified obesity classification Is this a current diagnosis for this admission?: Yes - Time Time Spent with patient: 15-24 minutes Medications reviewed and adjusted accordingly: Yes Anticipated discharge: Home Within: Other - Inpatient Certification Medical Necessity: Need for IV Antibiotics Post Hospital Care: D/C Operator Coating Furnace Documentation - Plan Summary Plan Summary: cont curr med
[2017-12-03] MEDS: LIVALO 2 MG PO SCH (21:48)
[2017-12-03] MEDS: INSULIN LISPRO 100 UNIT/ML 3 ML VIAL SUBCUT PRN (21:49)
[2017-12-04] MEDS: IPRATROPIUM/ALBUTEROL 0.5-2.5 MG/3 ML AMPUL NEB SCH ×7 (00:03→23:42)
[2017-12-04 04:41] LABS: ABSOLUTE BASOPHILS # (AUTO) 0.1 10^3/uL (0.0-0.2); ABSOLUTE EOSINOPHILS # (AUTO) 0.4 10^3/uL (0.0-0.6); ABSOLUTE LYMPHOCYTES (AUTO) 2.7 10^3/uL (0.5-4.7); ABSOLUTE NEUT (AUTO) 5.3 10^3/uL (1.7-8.2); EOSINOPHILS % (AUTO) 4.4 % (0-6); HEMATOCRIT 36.4 % (37.9-51.0); LYMPHOCYTES % (AUTO) 27.8 % (13-45); MEAN CORPUSCULAR HEMOGLOBIN 28.1 pg (27.0-33.4); MEAN CORPUSCULAR HGB CONC 32.8 g/dL (32.0-36.0); MEAN CORPUSCULAR VOLUME 86 fl (80-97); PLATELET COUNT 215 10^3/uL (150-450); RED BLOOD COUNT 4.25 10^6/uL (4.35-5.55); RED CELL DISTRIBUTION WIDTH 16.3 % (11.5-14.0); SEGMENTED NEUTROPHILS % (AUTO) 55.8 % (42-78); TOTAL CELLS COUNTED % (AUTO) 100 %; WHITE BLOOD COUNT 9.5 10^3/uL (4.0-10.5)
[2017-12-04 05:09] LABS: BLOOD UREA NITROGEN 30 mg/dL (7-20); CALCIUM 8.2 mg/dL (8.4-10.2); CHLORIDE 95 mmol/L (98-107); GLUCOSE 108 mg/dL (75-110); POTASSIUM 4.1 mmol/L (3.6-5.0)
[2017-12-04 05:19] LABS: CARBON DIOXIDE 38 mmol/L (22-30)
[2017-12-04 05:27] LABS: ANION GAP 4 (5-19)
[2017-12-04 06:25] LABS: ARTERIAL BLOOD BASE EXCESS 10.9 mmol/L; ARTERIAL BLOOD H2CO3 2.26 mmol/L (1.05-1.35); ARTERIAL BLOOD HCO3 39.6 mmol/L (20-24); ARTERIAL BLOOD O2 SATURATION 93.9 % (94-98); ARTERIAL BLOOD PH 7.34 (7.35-7.45); ARTERIAL BLOOD PO2 76.3 mmHg (80-100); ARTERIAL BLOOD TOTAL CO2 41.9 mmol/L (23-27)
[2017-12-04 06:28] LABS: ARTERIAL BLOOD FIO2 35%
[2017-12-04 06:31] LABS: ARTERIAL BLOOD PCO2 75.1 mmHg (35-45)
--- NOTE | 2017-12-04 08:44 | PDOC PROGRESS REPORT ---
Subjective Progress Note for:: 12/04/17 Subjective:: Patient is currently doing fair Still little bit confused His PCO2 is 74 Still on a BiPAP but getting better Still does not have any bowel movement Denied any chest pain denied any shortness of the breath Discussed with the daughter and the bedside getting the patient's current conditions Reason For Visit: RESPIRATORY FAILURE Physical Exam Vital Signs: Temp Pulse Resp BP Pulse Ox 97.5 F 66 15 134/58 H 96 12/04/17 03:20 12/04/17 08:15 12/04/17 08:15 12/04/17 03:20 12/04/17 08:15 Pulse Oximeter Continuous Start: 12/02/17 08: 51 Freq: RTQ4 Status: Active Document 12/04/17 08:15 [facility] (Rec: 12/04/17 08:31 [facility] [id number]) Pulse Oximetry Assessment Oxygen Saturation (92-100) 96 Oxygen Delivery Method Bi-pap Fraction of Inspired Oxygen (FIO2) 35 Equipment Usage Equipment in Use Continuous SpO2 Machine # 11 Intake & Output 12/03/17 12/04/17 12/05/17 06:59 06:59 06:59 Intake Total 1785 1275 Output Total 575 1800 Balance 1210 -525 Weight 161.4 kg 161.7 kg General appearance: PRESENT: no acute distress, well-developed, well-nourished Head exam: PRESENT: atraumatic, normocephalic Eye exam: PRESENT: conjunctiva pink, EOMI, PERRLA. ABSENT: scleral icterus Ear exam: PRESENT: normal external ear exam Mouth exam: PRESENT: moist, tongue midline Neck exam: PRESENT: full ROM. ABSENT: carotid bruit, JVD, lymphadenopathy, thyromegaly Respiratory exam: PRESENT: clear to auscultation mona Cardiovascular exam: PRESENT: RRR. ABSENT: diastolic murmur, rubs, systolic murmur Pulses: PRESENT: normal dorsalis pedis pul, +2 pedal pulses bilateral Vascular exam: PRESENT: normal capillary refill GI/Abdominal exam: PRESENT: normal bowel sounds, soft. ABSENT: distended, guarding, mass, organolmegaly, rebound, tenderness Rectal exam: PRESENT: deferred Neurological exam: PRESENT: alert, awake, oriented to person, oriented to place , CN II-XII grossly intact. ABSENT: motor sensory deficit Psychiatric exam: PRESENT: appropriate affect, normal mood. ABSENT: homicidal ideation, suicidal ideation Skin exam: PRESENT: dry, intact, warm. ABSENT: cyanosis, rash Results Laboratory Results: 12/04/17 04:18 12/04/17 04:18 12/03/17 12/04/17 12/04/17 08:20 04:18 04:18 WBC 9.5 RBC 4.25 L Hgb 12.0 L Hct 36.4 L MCV 86 MCH 28.1 MCHC 32.8 RDW 16.3 H Plt Count 215 Seg Neutrophils % 55.8 Lymphocytes % 27.8 Monocytes % 11.0 Eosinophils % 4.4 Basophils % 1.0 Absolute Neutrophils 5.3 Absolute Lymphocytes 2.7 Absolute Monocytes 1.0 Absolute Eosinophils 0.4 Absolute Basophils 0.1 Carbonic Acid 2.30 H HCO3/H2CO3 Ratio 16:1 ABG pH 7.32 L ABG pCO2 76.3 H* ABG pO2 83.5 ABG HCO3 38.7 H ABG O2 Saturation 95.0 ABG Base Excess 9.8 FiO2 4 L Sodium 137.0 Potassium 4.1 Chloride 95 L Carbon Dioxide 38 H Anion Gap 4 L BUN 30 H Creatinine 0.89 Est GFR ( Amer) > 60 Est GFR (Non-Af Amer) > 60 Glucose 108 Calcium 8.2 L 12/04/17 06:14 WBC RBC Hgb Hct MCV MCH MCHC RDW Plt Count Seg Neutrophils % Lymphocytes % Monocytes % Eosinophils % Basophils % Absolute Neutrophils Absolute Lymphocytes Absolute Monocytes Absolute Eosinophils Absolute Basophils Carbonic Acid 2.26 H HCO3/H2CO3 Ratio 17:1 ABG pH 7.34 L ABG pCO2 75.1 H* ABG pO2 76.3 L ABG HCO3 39.6 H ABG O2 Saturation 93.9 L ABG Base Excess 10.9 FiO2 35% Sodium Potassium Chloride Carbon Dioxide Anion Gap BUN Creatinine Est GFR ( Amer) Est GFR (Non-Af Amer) Glucose Calcium 12/03/17 01:04 Sputum Gram Stain - Final 12/03/17 01:04 Sputum Sputum Culture - Final 12/02/17 12/02/17 12/02/17 04:07 04:07 06:33 Creatine Kinase Cancelled CK-MB (CK-2) Cancelled 0.72 Troponin I Cancelled 0.042 12/02/17 12/02/17 12/02/17 06:33 10:01 10:01 Creatine Kinase 43 L 34 L CK-MB (CK-2) 0.63 Troponin I 0.032 12/02/17 12/02/17 15:45 15:45 Creatine Kinase 32 L CK-MB (CK-2) 0.44 Troponin I 0.031 Impressions: Chest X-Ray 12/01/17 21:40 FINDINGS/IMPRESSION: Normal cardiomediastinal silhouette. Lungs are clear. No pleural effusion or pneumothorax is seen. Chronic deformity of the left clavicle, present on radiograph from 2013. Assessment & Plan - Diagnosis (1) Hypercapnic respiratory failure Qualifiers: Chronicity: acute Qualified Code(s): J96.02 - Acute respiratory failure with hypercapnia Is this a current diagnosis for this admission?: Yes Plan: Continues to the BiPAP follow with the Dr. Pastrana start the patient on antibiotic to cover the underlying pneumonia with the cough and the sputum discharge will get the sputum culture (2) COPD (chronic obstructive pulmonary disease) Qualifiers: COPD type: unspecified COPD Qualified Code(s): J44.9 - Chronic obstructive pulmonary disease, unspecified Is this a current diagnosis for this admission?: Yes Plan: Continues to nebulizer treatments (3) Congestive heart failure Qualifiers: Heart failure type: combined systolic and diastolic Heart failure chronicity: acute Qualified Code(s): I50.41 - Acute combined systolic ( congestive) and diastolic (congestive) heart failure Is this a current diagnosis for this admission?: Yes Plan: Continues to current medications (4) Fall Qualifiers: Encounter type: initial encounter Qualified Code(s): W19.XXXA - Unspecified fall, initial encounter Is this a current diagnosis for this admission?: Yes Plan: Will get the physical therapy evaluations once the patient is stable respiratory espinoza (5) Hypertension Qualifiers: Hypertension type: essential hypertension Qualified Code(s): I10 - Essential (primary) hypertension Is this a current diagnosis for this admission?: Yes Plan: stable (6) Recurrent deep vein thrombosis (DVT) Is this a current diagnosis for this admission?: Yes Plan: Status post IVC filter patient had a lot of issue with the bleeding on Coumadin and other anticoagulations Patient/admission ultrasound was done was negative for any DVT (7) Sleep apnea Qualifiers: Sleep apnea type: unspecified type Qualified Code(s): G47.30 - Sleep apnea , unspecified Is this a current diagnosis for this admission?: Yes Plan: Patient is very claustrophobic and unable to wear the CPAP and very noncompliance with the CPAP discussed with the patient's daughterPatients definitely need a CPAP to follow with the sleep clinic for further different mask (8) Obesity Qualifiers: Obesity type: unspecified obesity type Obesity classification: unspecified obesity classification Is this a current diagnosis for this admission?: Yes - Time Time Spent with patient: 15-24 minutes Medications reviewed and adjusted accordingly: Yes Anticipated discharge: Home Within: Other - Inpatient Certification Medical Necessity: Need Close Monitoring Due to Risk of Patient Decompensation Post Hospital Care: D/C Safety Admin Assistant Documentation - Plan Summary Plan Summary: Continuous IV antibiotic Continues to BiPAP Follow with the pulmonary At the physical therapy evaluations Continues to [facility] and [facility] Discussed with the daughter and the bedside regarding the patient's current conditions
[2017-12-04] MEDS: CARVEDILOL 3.125 MG TABLET PO SCH ×2 (09:15→21:26)
[2017-12-04] MEDS: DOCUSATE SODIUM 100 MG CAPSULE PO SCH ×2 (09:15→17:12)
[2017-12-04] MEDS: METFORMIN HCL 500 MG TABLET PO SCH ×2 (09:16→21:27)
[2017-12-04] MEDS: OXYCODONE-ACETAMINOPHEN 5-325 MG TABLET PO PRN ×3 (09:16→21:26)
[2017-12-04] MEDS: CEFEPIME 2 GM/D5W RTU 2 GM/50 ML RTUPB IV SCH ×2 (09:17→21:28)
[2017-12-04] MEDS: BUMETANIDE 1 MG TABLET PO SCH ×2 (09:17→17:13)
[2017-12-04] MEDS: ASPIRIN 81 MG TABLET, ENT COATED PO SCH ×2 (09:17→21:26)
[2017-12-04] MEDS: ENOXAPARIN SODIUM INJ 40 MG/0.4 ML DISP.SYRIN SUBCUT SCH (09:17)
[2017-12-04] MEDS: POLYETHYLENE GLYCOL 3350 POWDER 17 GM/1 PACKET PO PRN (09:35)
--- NOTE | 2017-12-04 14:21 | PDOC PROGRESS REPORT ---
Subjective Progress Note for:: 12/04/17 Subjective:: About the same Reason For Visit: RESPIRATORY FAILURE Physical Exam Vital Signs: Temp Pulse Resp BP Pulse Ox 98.0 F 66 15 124/48 L 96 12/04/17 07:07 12/04/17 08:15 12/04/17 08:15 12/04/17 07:07 12/04/17 08:15 Pulse Oximeter Continuous Start: 12/02/17 08: 51 Freq: RTQ4 Status: Active Document 12/04/17 08:15 [facility] (Rec: 12/04/17 08:31 [facility] [id number]) Pulse Oximetry Assessment Oxygen Saturation (92-100) 96 Oxygen Delivery Method Bi-pap Fraction of Inspired Oxygen (FIO2) 35 Equipment Usage Equipment in Use Continuous SpO2 Machine # 11 Intake & Output 12/03/17 12/04/17 12/05/17 06:59 06:59 06:59 Intake Total 1785 1275 Output Total 575 1800 Balance 1210 -525 Weight 161.4 kg 161.7 kg General appearance: PRESENT: no acute distress, cooperative, disheveled, morbidly obese Head exam: PRESENT: atraumatic, normocephalic Eye exam: PRESENT: conjunctiva pale. ABSENT: nystagmus, scleral icterus Mouth exam: PRESENT: dry mucosa, neck supple, tongue midline Neck exam: ABSENT: carotid bruit, JVD, lymphadenopathy, thyromegaly, tracheal deviation, tracheostomy Respiratory exam: PRESENT: decreased breath sounds, prolonged expiratory phas, rales, rhonchi, unlabored. ABSENT: retraction, stridor Cardiovascular exam: PRESENT: RRR, +S1, +S2 GI/Abdominal exam: PRESENT: soft. ABSENT: tenderness Extremities exam: PRESENT: pedal edema. ABSENT: calf tenderness, clubbing, full ROM, joint swelling Musculoskeletal exam: ABSENT: ambulatory, deformity, dislocation Neurological exam: PRESENT: alert, awake Psychiatric exam: PRESENT: flat affect Skin exam: PRESENT: dry, warm Results Laboratory Results: 12/04/17 04:18 12/04/17 04:18 12/04/17 12/04/17 12/04/17 04:18 04:18 06:14 WBC 9.5 RBC 4.25 L Hgb 12.0 L Hct 36.4 L MCV 86 MCH 28.1 MCHC 32.8 RDW 16.3 H Plt Count 215 Seg Neutrophils % 55.8 Lymphocytes % 27.8 Monocytes % 11.0 Eosinophils % 4.4 Basophils % 1.0 Absolute Neutrophils 5.3 Absolute Lymphocytes 2.7 Absolute Monocytes 1.0 Absolute Eosinophils 0.4 Absolute Basophils 0.1 Carbonic Acid 2.26 H HCO3/H2CO3 Ratio 17:1 ABG pH 7.34 L ABG pCO2 75.1 H* ABG pO2 76.3 L ABG HCO3 39.6 H ABG O2 Saturation 93.9 L ABG Base Excess 10.9 FiO2 35% Sodium 137.0 Potassium 4.1 Chloride 95 L Carbon Dioxide 38 H Anion Gap 4 L BUN 30 H Creatinine 0.89 Est GFR ( Amer) > 60 Est GFR (Non-Af Amer) > 60 Glucose 108 Calcium 8.2 L 12/03/17 01:04 Sputum Gram Stain - Final 12/03/17 01:04 Sputum Sputum Culture - Final 12/02/17 12/02/17 12/02/17 04:07 04:07 06:33 Creatine Kinase Cancelled CK-MB (CK-2) Cancelled 0.72 Troponin I Cancelled 0.042 12/02/17 12/02/17 12/02/17 06:33 10:01 10:01 Creatine Kinase 43 L 34 L CK-MB (CK-2) 0.63 Troponin I 0.032 12/02/17 12/02/17 15:45 15:45 Creatine Kinase 32 L CK-MB (CK-2) 0.44 Troponin I 0.031 Impressions: Chest X-Ray 12/01/17 21:40 FINDINGS/IMPRESSION: Normal cardiomediastinal silhouette. Lungs are clear. No pleural effusion or pneumothorax is seen. Chronic deformity of the left clavicle, present on radiograph from 2013. Assessment & Plan - Diagnosis (1) Hypercapnic respiratory failure Qualifiers: Chronicity: acute Qualified Code(s): J96.02 - Acute respiratory failure with hypercapnia Is this a current diagnosis for this admission?: Yes Plan: The above patient has failed BiPAP. This patient would benefit from noninvasive mechanical ventilation via the trilogy AVAPS/AE and faster responding AVAPS rates. The trilogy is able to provide a target tidal volume and also adjusting the EPAP pressures to maintain a patent airway as well as an oral backup rate this machine will help improve PaCO2 levels. The severity of the patient's condition will lead to future hospitalizations and readmissions as well as life-threatening situations without the use of this device trilogy home vent needed for hypercapnic respiratory failure. [facility] or [facility] to follow for trilogy set up. (2) Morbid obesity Is this a current diagnosis for this admission?: Yes (3) COPD (chronic obstructive pulmonary disease) Qualifiers: COPD type: unspecified COPD Qualified Code(s): J44.9 - Chronic obstructive pulmonary disease, unspecified Is this a current diagnosis for this admission?: Yes Plan: Laba plus long acting muscarinic agent as needed albuterol (4) Sleep apnea Qualifiers: Sleep apnea type: unspecified type Qualified Code(s): G47.30 - Sleep apnea , unspecified Is this a current diagnosis for this admission?: Yes Plan: NIPPV
[2017-12-04] MEDS: CYCLOBENZAPRINE HCL 10 MG TABLET PO PRN (21:26)
[2017-12-04] MEDS: LIVALO 2 MG PO SCH (21:28)
[2017-12-05] MEDS: IPRATROPIUM/ALBUTEROL 0.5-2.5 MG/3 ML AMPUL NEB SCH ×6 (03:55→23:50)
[2017-12-05 05:08] LABS: ABSOLUTE EOSINOPHILS # (AUTO) 0.6 10^3/uL (0.0-0.6); ABSOLUTE LYMPHOCYTES (AUTO) 2.5 10^3/uL (0.5-4.7); ABSOLUTE MONOCYTES (AUTO) 0.8 10^3/uL (0.1-1.4); ABSOLUTE NEUT (AUTO) 4.9 10^3/uL (1.7-8.2); BASOPHILS % (AUTO) 0.5 % (0-2); EOSINOPHILS % (AUTO) 6.7 % (0-6); HEMATOCRIT 36.8 % (37.9-51.0); HEMOGLOBIN 12.3 g/dL (13.5-17.0); LYMPHOCYTES % (AUTO) 28.5 % (13-45); MEAN CORPUSCULAR HEMOGLOBIN 28.3 pg (27.0-33.4); MEAN CORPUSCULAR HGB CONC 33.3 g/dL (32.0-36.0); MEAN CORPUSCULAR VOLUME 85 fl (80-97); MONOCYTES % (AUTO) 9.1 % (3-13); PLATELET COUNT 214 10^3/uL (150-450); RED BLOOD COUNT 4.35 10^6/uL (4.35-5.55); SEGMENTED NEUTROPHILS % (AUTO) 55.2 % (42-78); TOTAL CELLS COUNTED % (AUTO) 100 %; WHITE BLOOD COUNT 8.9 10^3/uL (4.0-10.5)
[2017-12-05 05:34] LABS: ANION GAP 5 (5-19); BLOOD UREA NITROGEN 24 mg/dL (7-20); CALCIUM 8.8 mg/dL (8.4-10.2); CARBON DIOXIDE 38 mmol/L (22-30); CHLORIDE 94 mmol/L (98-107); GLUCOSE 99 mg/dL (75-110); POTASSIUM 4.3 mmol/L (3.6-5.0); SODIUM 137.3 mmol/L (137-145)
[2017-12-05] MEDS: OXYCODONE-ACETAMINOPHEN 5-325 MG TABLET PO PRN ×3 (07:17→15:50)
[2017-12-05] MEDS: DOCUSATE SODIUM 100 MG CAPSULE PO SCH ×2 (09:14→17:36)
[2017-12-05] MEDS: BUMETANIDE 1 MG TABLET PO SCH ×2 (09:14→17:36)
[2017-12-05] MEDS: METFORMIN HCL 500 MG TABLET PO SCH ×2 (09:14→22:13)
[2017-12-05] MEDS: CEFEPIME 2 GM/D5W RTU 2 GM/50 ML RTUPB IV SCH ×2 (09:15→22:16)
[2017-12-05] MEDS: CARVEDILOL 3.125 MG TABLET PO SCH ×2 (09:15→22:15)
[2017-12-05] MEDS: ASPIRIN 81 MG TABLET, ENT COATED PO SCH ×2 (09:15→22:14)
[2017-12-05] MEDS: ENOXAPARIN SODIUM INJ 40 MG/0.4 ML DISP.SYRIN SUBCUT SCH (09:25)
--- NOTE | 2017-12-05 13:16 | PDOC PROGRESS REPORT ---
Subjective Progress Note for:: 12/05/17 Subjective:: c/o back pain Reason For Visit: RESPIRATORY FAILURE Physical Exam Vital Signs: Temp Pulse Resp BP Pulse Ox 98.0 F 71 20 128/47 H 98 12/05/17 12:00 12/05/17 12:00 12/05/17 12:00 12/05/17 12:00 12/05/17 12:00 Pulse Oximeter Continuous Start: 12/02/17 08: 51 Freq: RTQ4 Status: Active Document 12/05/17 08:45 [facility] (Rec: 12/05/17 08:57 [facility] [id number]) Pulse Oximetry Assessment Oxygen Saturation (92-100) 95 Oxygen Flow Rate (L/min) 3 Oxygen Delivery Method Nasal Cannula Equipment Usage Equipment in Use Continuous SpO2 Machine # 11 Intake & Output 12/04/17 12/05/17 12/06/17 06:59 06:59 06:59 Intake Total 1275 1055 473 Output Total 1800 2700 550 Balance -525 -1645 -77 Weight 161.7 kg 160.6 kg General appearance: PRESENT: cooperative, disheveled, mild distress, morbidly obese Head exam: PRESENT: atraumatic, normocephalic Eye exam: PRESENT: conjunctiva pale, EOMI. ABSENT: nystagmus, scleral icterus Mouth exam: PRESENT: dry mucosa, neck supple, tongue midline Teeth exam: PRESENT: poor dentation Neck exam: ABSENT: carotid bruit, JVD, lymphadenopathy, thyromegaly, tracheal deviation, tracheostomy Respiratory exam: PRESENT: decreased breath sounds, prolonged expiratory phas, rhonchi, unlabored. ABSENT: retraction, stridor, tachypnea Cardiovascular exam: PRESENT: RRR, +S1, +S2 Pulses: PRESENT: normal radial pulses GI/Abdominal exam: PRESENT: soft. ABSENT: tenderness Extremities exam: PRESENT: pedal edema. ABSENT: calf tenderness, clubbing, joint swelling Musculoskeletal exam: ABSENT: ambulatory, deformity, dislocation Neurological exam: PRESENT: alert, awake Psychiatric exam: PRESENT: flat affect Skin exam: PRESENT: dry, warm Results Laboratory Results: 12/05/17 04:23 12/05/17 04:23 12/05/17 12/05/17 04:23 04:23 WBC 8.9 RBC 4.35 Hgb 12.3 L Hct 36.8 L MCV 85 MCH 28.3 MCHC 33.3 RDW 16.0 H Plt Count 214 Seg Neutrophils % 55.2 Lymphocytes % 28.5 Monocytes % 9.1 Eosinophils % 6.7 H Basophils % 0.5 Absolute Neutrophils 4.9 Absolute Lymphocytes 2.5 Absolute Monocytes 0.8 Absolute Eosinophils 0.6 Absolute Basophils 0.0 Sodium 137.3 Potassium 4.3 Chloride 94 L Carbon Dioxide 38 H Anion Gap 5 BUN 24 H Creatinine 0.81 Est GFR ( Amer) > 60 Est GFR (Non-Af Amer) > 60 Glucose 99 Calcium 8.8 12/02/17 16:29 Clean Catch Midstream Urine Culture - Final NO GROWTH 2 DAYS 12/02/17 12/02/17 12/02/17 04:07 04:07 06:33 Creatine Kinase Cancelled CK-MB (CK-2) Cancelled 0.72 Troponin I Cancelled 0.042 12/02/17 12/02/17 12/02/17 06:33 10:01 10:01 Creatine Kinase 43 L 34 L CK-MB (CK-2) 0.63 Troponin I 0.032 12/02/17 12/02/17 15:45 15:45 Creatine Kinase 32 L CK-MB (CK-2) 0.44 Troponin I 0.031 Impressions: Chest X-Ray 12/01/17 21:40 FINDINGS/IMPRESSION: Normal cardiomediastinal silhouette. Lungs are clear. No pleural effusion or pneumothorax is seen. Chronic deformity of the left clavicle, present on radiograph from 2013. Assessment & Plan - Diagnosis (1) Hypercapnic respiratory failure Qualifiers: Chronicity: acute Qualified Code(s): J96.02 - Acute respiratory failure with hypercapnia Is this a current diagnosis for this admission?: Yes Plan: The above patient has failed BiPAP. This patient would benefit from noninvasive mechanical ventilation via the trilogy AVAPS/AE and faster responding AVAPS rates. The trilogy is able to provide a target tidal volume and also adjusting the EPAP pressures to maintain a patent airway as well as an oral backup rate this machine will help improve PaCO2 levels. The severity of the patient's condition will lead to future hospitalizations and readmissions as well as life-threatening situations without the use of this device trilogy home vent needed for hypercapnic respiratory failure. [facility] or [facility] to follow for trilogy set up. (2) Morbid obesity Is this a current diagnosis for this admission?: Yes (3) COPD (chronic obstructive pulmonary disease) Qualifiers: COPD type: unspecified COPD Qualified Code(s): J44.9 - Chronic obstructive pulmonary disease, unspecified Is this a current diagnosis for this admission?: Yes Plan: Laba plus long acting muscarinic agent as needed albuterol (4) Sleep apnea Qualifiers: Sleep apnea type: unspecified type Qualified Code(s): G47.30 - Sleep apnea , unspecified Is this a current diagnosis for this admission?: Yes Plan: NIPPV
--- NOTE | 2017-12-05 14:41 | PDOC PROGRESS REPORT ---
Subjective Progress Note for:: 12/05/17 Subjective:: Patient is complaining of a constipations in the back problems Patient is currently feeling much better otherwise respiratory status is improved Patient is more alert awake oriented x3 Denied any chest pain denied any shortness of the breath physical therapy Reason For Visit: RESPIRATORY FAILURE Physical Exam Vital Signs: Temp Pulse Resp BP Pulse Ox 98.0 F 71 16 128/47 H 96 12/05/17 12:00 12/05/17 13:07 12/05/17 13:07 12/05/17 12:00 12/05/17 13:07 Pulse Oximeter Continuous Start: 12/02/17 08: 51 Freq: RTQ4 Status: Active Document 12/05/17 13:07 [facility] (Rec: 12/05/17 13:41 [facility] [id number]) Pulse Oximetry Assessment Oxygen Saturation (92-100) 96 Oxygen Delivery Method Bi-pap Fraction of Inspired Oxygen (FIO2) 35 Equipment Usage Equipment in Use Continuous SpO2 Machine # 11 Intake & Output 12/04/17 12/05/17 12/06/17 06:59 06:59 06:59 Intake Total 1275 1055 473 Output Total 1800 2700 550 Balance -525 -1645 -77 Weight 161.7 kg 160.6 kg General appearance: PRESENT: no acute distress, well-developed, well-nourished Head exam: PRESENT: atraumatic, normocephalic Eye exam: PRESENT: conjunctiva pink, EOMI, PERRLA. ABSENT: scleral icterus Ear exam: PRESENT: normal external ear exam Mouth exam: PRESENT: moist, tongue midline Neck exam: PRESENT: full ROM. ABSENT: carotid bruit, JVD, lymphadenopathy, thyromegaly Respiratory exam: PRESENT: decreased breath sounds Cardiovascular exam: PRESENT: RRR. ABSENT: diastolic murmur, rubs, systolic murmur Pulses: PRESENT: normal dorsalis pedis pul, +2 pedal pulses bilateral Vascular exam: PRESENT: normal capillary refill GI/Abdominal exam: PRESENT: normal bowel sounds, soft. ABSENT: distended, guarding, mass, organolmegaly, rebound, tenderness Rectal exam: PRESENT: deferred Neurological exam: PRESENT: alert, awake, oriented to person, oriented to place , oriented to time, oriented to situation, CN II-XII grossly intact. ABSENT: motor sensory deficit Psychiatric exam: PRESENT: appropriate affect, normal mood. ABSENT: homicidal ideation, suicidal ideation Skin exam: PRESENT: dry, intact, warm. ABSENT: cyanosis, rash Results Laboratory Results: 12/05/17 04:23 12/05/17 04:23 12/05/17 12/05/17 04:23 04:23 WBC 8.9 RBC 4.35 Hgb 12.3 L Hct 36.8 L MCV 85 MCH 28.3 MCHC 33.3 RDW 16.0 H Plt Count 214 Seg Neutrophils % 55.2 Lymphocytes % 28.5 Monocytes % 9.1 Eosinophils % 6.7 H Basophils % 0.5 Absolute Neutrophils 4.9 Absolute Lymphocytes 2.5 Absolute Monocytes 0.8 Absolute Eosinophils 0.6 Absolute Basophils 0.0 Sodium 137.3 Potassium 4.3 Chloride 94 L Carbon Dioxide 38 H Anion Gap 5 BUN 24 H Creatinine 0.81 Est GFR ( Amer) > 60 Est GFR (Non-Af Amer) > 60 Glucose 99 Calcium 8.8 12/02/17 12/02/17 12/02/17 04:07 04:07 06:33 Creatine Kinase Cancelled CK-MB (CK-2) Cancelled 0.72 Troponin I Cancelled 0.042 12/02/17 12/02/17 12/02/17 06:33 10:01 10:01 Creatine Kinase 43 L 34 L CK-MB (CK-2) 0.63 Troponin I 0.032 12/02/17 12/02/17 15:45 15:45 Creatine Kinase 32 L CK-MB (CK-2) 0.44 Troponin I 0.031 Impressions: Chest X-Ray 12/01/17 21:40 FINDINGS/IMPRESSION: Normal cardiomediastinal silhouette. Lungs are clear. No pleural effusion or pneumothorax is seen. Chronic deformity of the left clavicle, present on radiograph from 2014. Assessment & Plan - Diagnosis (1) Hypercapnic respiratory failure Qualifiers: Chronicity: acute Qualified Code(s): J96.02 - Acute respiratory failure with hypercapnia Is this a current diagnosis for this admission?: Yes Plan: Continues on a BiPAP currently all improving (2) COPD (chronic obstructive pulmonary disease) Qualifiers: COPD type: unspecified COPD Qualified Code(s): J44.9 - Chronic obstructive pulmonary disease, unspecified Is this a current diagnosis for this admission?: Yes Plan: Continues to nebulizer treatments (3) Congestive heart failure Qualifiers: Heart failure type: combined systolic and diastolic Heart failure chronicity: acute Qualified Code(s): I50.41 - Acute combined systolic ( congestive) and diastolic (congestive) heart failure Is this a current diagnosis for this admission?: Yes Plan: Continues to current medications (4) Fall Qualifiers: Encounter type: initial encounter Qualified Code(s): W19.XXXA - Unspecified fall, initial encounter Is this a current diagnosis for this admission?: Yes Plan: Will get the physical therapy evaluations once the patient is stable respiratory espinoza (5) Hypertension Qualifiers: Hypertension type: essential hypertension Qualified Code(s): I10 - Essential (primary) hypertension Is this a current diagnosis for this admission?: Yes Plan: stable (6) Recurrent deep vein thrombosis (DVT) Is this a current diagnosis for this admission?: Yes Plan: Status post IVC filter patient had a lot of issue with the bleeding on Coumadin and other anticoagulations Patient/admission ultrasound was done was negative for any DVT (7) Sleep apnea Qualifiers: Sleep apnea type: unspecified type Qualified Code(s): G47.30 - Sleep apnea , unspecified Is this a current diagnosis for this admission?: Yes Plan: Patient is very claustrophobic and unable to wear the CPAP and very noncompliance with the CPAP discussed with the patient's daughterPatients definitely need a CPAP to follow with the sleep clinic for further different mask (8) Obesity Qualifiers: Obesity type: unspecified obesity type Obesity classification: unspecified obesity classification Is this a current diagnosis for this admission?: Yes (9) Constipation Qualifiers: Constipation type: unspecified constipation type Qualified Code(s): K59.00 - Constipation, unspecified Is this a current diagnosis for this admission?: Yes Plan: Will add the lactulose (10) Low back pain Qualifiers: Chronicity: chronic Is this a current diagnosis for this admission?: Yes Plan: Patient's follow-up pain management continues the pain medications - Time Time Spent with patient: 15-24 minutes Medications reviewed and adjusted accordingly: Yes Anticipated discharge: Other Within: Other - Inpatient Certification Medical Necessity: Need Close Monitoring Due to Risk of Patient Decompensation Post Hospital Care: D/C [facility] Documentation - Plan Summary Plan Summary: Discussed with the patient encouraged to more physical therapy continues to current medications continues follow with the pulmonary
[2017-12-05] MEDS: CYCLOBENZAPRINE HCL 10 MG TABLET PO PRN (22:15)
[2017-12-05] MEDS: OXYCODONE HCL IR 5 MG TABLET PO SCH (22:15)
[2017-12-05] MEDS: LACTULOSE SYRUP 20 GM/30 ML UDCUP PO SCH (22:16)
[2017-12-05] MEDS: LIVALO 2 MG PO SCH (22:42)
[2017-12-06] MEDS: IPRATROPIUM/ALBUTEROL 0.5-2.5 MG/3 ML AMPUL NEB SCH ×6 (04:17→23:58)
[2017-12-06] MEDS: OXYCODONE HCL IR 5 MG TABLET PO SCH ×3 (05:16→21:42)
[2017-12-06] MEDS: ASPIRIN 81 MG TABLET, ENT COATED PO SCH ×2 (09:53→21:42)
[2017-12-06] MEDS: METFORMIN HCL 500 MG TABLET PO SCH ×2 (09:53→21:40)
[2017-12-06] MEDS: BUMETANIDE 1 MG TABLET PO SCH ×2 (09:53→17:05)
[2017-12-06] MEDS: DOCUSATE SODIUM 100 MG CAPSULE PO SCH ×2 (09:53→21:41)
[2017-12-06] MEDS: LACTULOSE SYRUP 20 GM/30 ML UDCUP PO SCH ×2 (09:53→21:41)
[2017-12-06 09:54] LABS: ARTERIAL BLOOD BASE EXCESS 8.3 mmol/L; ARTERIAL BLOOD FIO2 2L; ARTERIAL BLOOD HCO3 35.2 mmol/L (20-24); ARTERIAL BLOOD O2 SATURATION 93.8 % (94-98); ARTERIAL BLOOD PCO2 59.8 mmHg (35-45); ARTERIAL BLOOD PH 7.39 (7.35-7.45); ARTERIAL BLOOD PO2 71.2 mmHg (80-100); ARTERIAL BLOOD TOTAL CO2 37.1 mmol/L (23-27)
[2017-12-06] MEDS: CARVEDILOL 3.125 MG TABLET PO SCH ×2 (09:54→21:42)
[2017-12-06] MEDS: ENOXAPARIN SODIUM INJ 40 MG/0.4 ML DISP.SYRIN SUBCUT SCH (09:54)
[2017-12-06] MEDS: CEFEPIME 2 GM/D5W RTU 2 GM/50 ML RTUPB IV SCH ×2 (09:56→21:45)
--- NOTE | 2017-12-06 13:27 | PDOC PROGRESS REPORT ---
Subjective Progress Note for:: 12/06/17 Subjective:: Patient is currently doing better Since pH and PCO2 is much improved Patient's back pain is also improving Still constipated Denied any chest pain denied any shortness of the breath Reason For Visit: RESPIRATORY FAILURE Physical Exam Vital Signs: Temp Pulse Resp BP Pulse Ox 97.8 F 75 12 113/54 L 95 12/06/17 11:26 12/06/17 11:39 12/06/17 11:39 12/06/17 11:26 12/06/17 11:39 Pulse Oximeter Continuous Start: 12/02/17 08: 51 Freq: RTQ4 Status: Active Document 12/06/17 11:39 [facility] [place]Rec: 12/06/17 11:48 [facility] [id number] Pulse Oximetry Assessment Oxygen Saturation (92-100) 95 Oxygen Flow Rate (L/min) 2 Oxygen Delivery Method Nasal Cannula Fraction of Inspired Oxygen (FIO2) 28 Equipment Usage Equipment in Use Continuous SpO2 Machine # N 11 Intake & Output 12/05/17 12/06/17 12/07/17 06:59 06:59 06:59 Intake Total 1055 813 50 Output Total 2700 1825 Balance -1645 -1012 50 Weight 160.6 kg General appearance: PRESENT: no acute distress, well-developed, well-nourished Head exam: PRESENT: atraumatic, normocephalic Eye exam: PRESENT: conjunctiva pink, EOMI, PERRLA. ABSENT: scleral icterus Ear exam: PRESENT: normal external ear exam Mouth exam: PRESENT: moist, tongue midline Neck exam: PRESENT: full ROM. ABSENT: carotid bruit, JVD, lymphadenopathy, thyromegaly Respiratory exam: PRESENT: clear to auscultation mona Cardiovascular exam: PRESENT: RRR. ABSENT: diastolic murmur, rubs, systolic murmur Pulses: PRESENT: normal dorsalis pedis pul, +2 pedal pulses bilateral Vascular exam: PRESENT: normal capillary refill GI/Abdominal exam: PRESENT: normal bowel sounds, soft. ABSENT: distended, guarding, mass, organolmegaly, rebound, tenderness Rectal exam: PRESENT: deferred Extremities exam: ABSENT: pedal edema Musculoskeletal exam: PRESENT: ambulatory Neurological exam: PRESENT: alert, awake, oriented to person, oriented to place , oriented to time, oriented to situation, CN II-XII grossly intact. ABSENT: motor sensory deficit Psychiatric exam: PRESENT: appropriate affect, normal mood. ABSENT: homicidal ideation, suicidal ideation Skin exam: PRESENT: dry, intact, warm. ABSENT: cyanosis, rash Results Laboratory Results: 12/05/17 04:23 12/05/17 04:23 12/06/17 09:40 Carbonic Acid 1.80 H HCO3/H2CO3 Ratio 19:1 ABG pH 7.39 ABG pCO2 59.8 H ABG pO2 71.2 L ABG HCO3 35.2 H ABG O2 Saturation 93.8 L ABG Base Excess 8.3 FiO2 2L 12/02/17 12/02/17 12/02/17 04:07 04:07 06:33 Creatine Kinase Cancelled CK-MB (CK-2) Cancelled 0.72 Troponin I Cancelled 0.042 12/02/17 12/02/17 12/02/17 06:33 10:01 10:01 Creatine Kinase 43 L 34 L CK-MB (CK-2) 0.63 Troponin I 0.032 12/02/17 12/02/17 15:45 15:45 Creatine Kinase 32 L CK-MB (CK-2) 0.44 Troponin I 0.031 Impressions: Chest X-Ray 12/01/17 21:40 FINDINGS/IMPRESSION: Normal cardiomediastinal silhouette. Lungs are clear. No pleural effusion or pneumothorax is seen. Chronic deformity of the left clavicle, present on radiograph from 2013. Assessment & Plan - Diagnosis (1) Hypercapnic respiratory failure Qualifiers: Chronicity: acute Qualified Code(s): J96.02 - Acute respiratory failure with hypercapnia Is this a current diagnosis for this admission?: Yes Plan: Currently all improving (2) COPD (chronic obstructive pulmonary disease) Qualifiers: COPD type: unspecified COPD Qualified Code(s): J44.9 - Chronic obstructive pulmonary disease, unspecified Is this a current diagnosis for this admission?: Yes Plan: Continues to nebulizer treatments (3) Congestive heart failure Qualifiers: Heart failure type: combined systolic and diastolic Heart failure chronicity: acute Qualified Code(s): I50.41 - Acute combined systolic ( congestive) and diastolic (congestive) heart failure Is this a current diagnosis for this admission?: Yes Plan: Continues to current medications (4) Fall Qualifiers: Encounter type: initial encounter Qualified Code(s): W19.XXXA - Unspecified fall, initial encounter Is this a current diagnosis for this admission?: Yes Plan: Will get the physical therapy evaluations once the patient is stable respiratory espinoza (5) Hypertension Qualifiers: Hypertension type: essential hypertension Qualified Code(s): I10 - Essential (primary) hypertension Is this a current diagnosis for this admission?: Yes Plan: stable (6) Recurrent deep vein thrombosis (DVT) Is this a current diagnosis for this admission?: Yes Plan: Status post IVC filter patient had a lot of issue with the bleeding on Coumadin and other anticoagulations Patient/admission ultrasound was done was negative for any DVT (7) Sleep apnea Qualifiers: Sleep apnea type: unspecified type Qualified Code(s): G47.30 - Sleep apnea , unspecified Is this a current diagnosis for this admission?: Yes Plan: Patient is very claustrophobic and unable to wear the CPAP and very noncompliance with the CPAP discussed with the patient's daughterPatients definitely need a CPAP to follow with the sleep clinic for further different mask (8) Obesity Qualifiers: Obesity type: unspecified obesity type Obesity classification: unspecified obesity classification Is this a current diagnosis for this admission?: Yes (9) Constipation Qualifiers: Constipation type: unspecified constipation type Qualified Code(s): K59.00 - Constipation, unspecified Is this a current diagnosis for this admission?: Yes Plan: Continues to current medications may be consider Movantik if is not help (10) Low back pain Qualifiers: Chronicity: chronic Is this a current diagnosis for this admission?: Yes Plan: Continues to current pain medications - Time Time Spent with patient: 15-24 minutes Medications reviewed and adjusted accordingly: Yes Anticipated discharge: Home Within: Other - Inpatient Certification Medical Necessity: Need Close Monitoring Due to Risk of Patient Decompensation Post Hospital Care: D/C [facility] Documentation - Plan Summary Plan Summary: Since currently continues to be improving hopefully discharge home very soon
[2017-12-06] MEDS: LIVALO 2 MG PO SCH (21:44)
[2017-12-06] MEDS: POLYETHYLENE GLYCOL 3350 POWDER 17 GM/1 PACKET PO PRN (21:44)
[2017-12-07] MEDS: IPRATROPIUM/ALBUTEROL 0.5-2.5 MG/3 ML AMPUL NEB SCH ×5 (04:06→20:09)
[2017-12-07] MEDS: OXYCODONE HCL IR 5 MG TABLET PO SCH ×3 (06:15→21:12)
[2017-12-07] MEDS: CARVEDILOL 3.125 MG TABLET PO SCH ×2 (09:12→21:11)
[2017-12-07] MEDS: METFORMIN HCL 500 MG TABLET PO SCH ×2 (09:13→21:10)
[2017-12-07] MEDS: ENOXAPARIN SODIUM INJ 40 MG/0.4 ML DISP.SYRIN SUBCUT SCH (09:13)
[2017-12-07] MEDS: CEFEPIME 2 GM/D5W RTU 2 GM/50 ML RTUPB IV SCH ×2 (09:13→21:23)
[2017-12-07] MEDS: LACTULOSE SYRUP 20 GM/30 ML UDCUP PO SCH ×2 (09:13→21:09)
[2017-12-07] MEDS: ASPIRIN 81 MG TABLET, ENT COATED PO SCH ×2 (09:13→21:11)
[2017-12-07] MEDS: BUMETANIDE 1 MG TABLET PO SCH ×2 (09:13→17:05)
[2017-12-07] MEDS: DOCUSATE SODIUM 100 MG CAPSULE PO SCH ×2 (09:13→17:06)
--- NOTE | 2017-12-07 16:58 | PDOC PROGRESS REPORT ---
Subjective Progress Note for:: 12/07/17 Subjective:: Patient seen by the bedside, he has no new complaint today Reason For Visit: RESPIRATORY FAILURE Physical Exam Vital Signs: Temp Pulse Resp BP Pulse Ox 98.5 F 80 18 156/62 H 98 12/07/17 12:04 12/07/17 14:00 12/07/17 12:04 12/07/17 12:04 12/07/17 12:04 Pulse Oximeter Continuous Start: 12/02/17 08: 51 Freq: RTQ4 Status: Active Document 12/07/17 08:15 [facility] (Rec: 12/07/17 10:23 [facility] [id number]) Pulse Oximetry Assessment Oxygen Saturation (92-100) 93 Oxygen Flow Rate (L/min) 2 Oxygen Delivery Method Nasal Cannula Equipment Usage Equipment in Use Continuous SpO2 Machine # 11 Intake & Output 12/06/17 12/07/17 12/08/17 06:59 06:59 06:59 Intake Total 813 1235 675 Output Total 1825 3215 450 Balance -1012 -1190 225 Weight 164 kg General appearance: PRESENT: no acute distress Respiratory exam: PRESENT: decreased breath sounds Cardiovascular exam: PRESENT: +S1, +S2 GI/Abdominal exam: PRESENT: soft Neurological exam: PRESENT: alert Results Laboratory Results: 12/05/17 04:23 12/05/17 04:23 12/02/17 11:50 Blood Blood Culture - Final NO GROWTH IN 5 DAYS 12/02/17 12:15 Blood Blood Culture - Final NO GROWTH IN 5 DAYS 12/02/17 12/02/17 12/02/17 04:07 04:07 06:33 Creatine Kinase Cancelled CK-MB (CK-2) Cancelled 0.72 Troponin I Cancelled 0.042 12/02/17 12/02/17 12/02/17 06:33 10:01 10:01 Creatine Kinase 43 L 34 L CK-MB (CK-2) 0.63 Troponin I 0.032 12/02/17 12/02/17 15:45 15:45 Creatine Kinase 32 L CK-MB (CK-2) 0.44 Troponin I 0.031 Impressions: Chest X-Ray 12/01/17 21:40 FINDINGS/IMPRESSION: Normal cardiomediastinal silhouette. Lungs are clear. No pleural effusion or pneumothorax is seen. Chronic deformity of the left clavicle, present on radiograph from 2014. Assessment & Plan - Diagnosis (2) Congestive heart failure Qualifiers: Heart failure type: combined systolic and diastolic Heart failure chronicity: acute Qualified Code(s): I50.41 - Acute combined systolic ( congestive) and diastolic (congestive) heart failure Is this a current diagnosis for this admission?: Yes (3) Morbid obesity Is this a current diagnosis for this admission?: Yes
[2017-12-07] MEDS: CYCLOBENZAPRINE HCL 10 MG TABLET PO PRN (20:22)
[2017-12-07] MEDS: LIVALO 2 MG PO SCH (21:13)
[2017-12-08] MEDS: IPRATROPIUM/ALBUTEROL 0.5-2.5 MG/3 ML AMPUL NEB SCH ×6 (00:25→20:15)
[2017-12-08] MEDS: OXYCODONE HCL IR 5 MG TABLET PO SCH ×3 (05:58→21:27)
[2017-12-08] MEDS: METFORMIN HCL 500 MG TABLET PO SCH ×2 (09:41→21:27)
[2017-12-08] MEDS: CYCLOBENZAPRINE HCL 10 MG TABLET PO PRN ×2 (09:41→21:28)
[2017-12-08] MEDS: CARVEDILOL 3.125 MG TABLET PO SCH ×2 (09:41→21:28)
[2017-12-08] MEDS: ASPIRIN 81 MG TABLET, ENT COATED PO SCH ×2 (09:41→21:27)
[2017-12-08] MEDS: ENOXAPARIN SODIUM INJ 40 MG/0.4 ML DISP.SYRIN SUBCUT SCH (09:42)
[2017-12-08] MEDS: DOCUSATE SODIUM 100 MG CAPSULE PO SCH ×2 (09:42→17:45)
[2017-12-08] MEDS: CEFEPIME 2 GM/D5W RTU 2 GM/50 ML RTUPB IV SCH ×2 (09:42→21:28)
[2017-12-08] MEDS: LACTULOSE SYRUP 20 GM/30 ML UDCUP PO SCH ×2 (09:42→21:28)
[2017-12-08] MEDS: BUMETANIDE 1 MG TABLET PO SCH ×2 (09:44→17:45)
--- NOTE | 2017-12-08 13:57 | PDOC PROGRESS REPORT ---
Subjective Progress Note for:: 12/06/17 Subjective:: W/O COMPLAINTS Reason For Visit: RESPIRATORY FAILURE Physical Exam Vital Signs: Temp Pulse Resp BP Pulse Ox 98.1 F 73 20 115/46 L 96 12/06/17 08:53 12/06/17 08:53 12/06/17 08:53 12/06/17 08:53 12/06/17 08:53 Pulse Oximeter Continuous Start: 12/02/17 08: 51 Freq: RTQ4 Status: Active Document 12/06/17 07:49 [facility] [place]Rec: 12/06/17 07:57 [facility] [id number][place] Pulse Oximetry Assessment Oxygen Saturation (92-100) 94 Oxygen Flow Rate (L/min) 2 Oxygen Delivery Method Nasal Cannula Fraction of Inspired Oxygen (FIO2) 21 Equipment Usage Equipment in Use Continuous SpO2 Machine # N 11 Intake & Output 12/05/17 12/06/17 12/07/17 06:59 06:59 06:59 Intake Total 1055 813 Output Total 2700 1825 Balance -1645 -1012 Weight 160.6 kg General appearance: PRESENT: no acute distress, disheveled, morbidly obese Head exam: PRESENT: atraumatic, normocephalic Eye exam: PRESENT: conjunctiva pale, EOMI. ABSENT: nystagmus, scleral icterus Mouth exam: PRESENT: dry mucosa, neck supple, tongue midline Respiratory exam: PRESENT: decreased breath sounds, prolonged expiratory phas, rhonchi, unlabored. ABSENT: retraction, stridor, tachypnea Cardiovascular exam: PRESENT: RRR, +S1, +S2 Pulses: PRESENT: normal radial pulses GI/Abdominal exam: PRESENT: soft. ABSENT: tenderness Extremities exam: PRESENT: pedal edema. ABSENT: calf tenderness, clubbing, joint swelling, tenderness Musculoskeletal exam: ABSENT: deformity, dislocation Neurological exam: PRESENT: awake Psychiatric exam: PRESENT: flat affect Skin exam: PRESENT: dry, warm Results Laboratory Results: 12/05/17 04:23 12/05/17 04:23 12/06/17 09:40 Carbonic Acid 1.80 H HCO3/H2CO3 Ratio 19:1 ABG pH 7.39 ABG pCO2 59.8 H ABG pO2 71.2 L ABG HCO3 35.2 H ABG O2 Saturation 93.8 L ABG Base Excess 8.3 FiO2 2L 12/02/17 12/02/1712/02/18 04:07 04:07 06:33 Creatine Kinase Cancelled CK-MB (CK-2) Cancelled 0.72 Troponin I Cancelled 0.042 12/02/17 12/02/17 12/02/17 06:33 10:01 10:01 Creatine Kinase 43 L 34 L CK-MB (CK-2) 0.63 Troponin I 0.032 12/02/17 12/02/17 15:45 15:45 Creatine Kinase 32 L CK-MB (CK-2) 0.44 Troponin I 0.031 Impressions: Chest X-Ray 12/01/17 21:40 FINDINGS/IMPRESSION: Normal cardiomediastinal silhouette. Lungs are clear. No pleural effusion or pneumothorax is seen. Chronic deformity of the left clavicle, present on radiograph from 2013. Assessment & Plan - Diagnosis (1) Hypercapnic respiratory failure Qualifiers: Chronicity: acute Qualified Code(s): J96.02 - Acute respiratory failure with hypercapnia Is this a current diagnosis for this admission?: Yes Plan: The above patient has failed BiPAP. This patient would benefit from noninvasive mechanical ventilation via the trilogy AVAPS/AE and faster responding AVAPS rates. The trilogy is able to provide a target tidal volume and also adjusting the EPAP pressures to maintain a patent airway as well as an oral backup rate this machine will help improve PaCO2 levels. The severity of the patient's condition will lead to future hospitalizations and readmissions as well as life-threatening situations without the use of this device trilogy home vent needed for hypercapnic respiratory failure. [facility] or [facility] [place] to follow for trilogy set up. (2) Morbid obesity Is this a current diagnosis for this admission?: Yes (3) COPD (chronic obstructive pulmonary disease) Qualifiers: COPD type: unspecified COPD Qualified Code(s): J44.9 - Chronic obstructive pulmonary disease, unspecified Is this a current diagnosis for this admission?: Yes Plan: Laba plus long acting muscarinic agent as needed albuterol (4) Sleep apnea Qualifiers: Sleep apnea type: unspecified type Qualified Code(s): G47.30 - Sleep apnea , unspecified Is this a current diagnosis for this admission?: Yes Plan: NIPPV
--- NOTE | 2017-12-08 16:49 | PDOC PROGRESS REPORT ---
Subjective Progress Note for:: 12/08/17 Subjective:: Patient seen by the bedside, no new complaints Reason For Visit: RESPIRATORY FAILURE Physical Exam Vital Signs: Temp Pulse Resp BP Pulse Ox 97.6 F 79 14 135/53 H 97 12/08/17 15:30 12/08/17 15:30 12/08/17 15:30 12/08/17 15:30 12/08/17 15:30 Pulse Oximeter Continuous Start: 12/02/17 08: 51 Freq: RTQ4 Status: Active Document 12/08/17 12:25 HCR (Rec: 12/08/17 13:34 HCR [id number]) Pulse Oximetry Assessment Oxygen Saturation (92-100) 92 Oxygen Flow Rate (L/min) 2 Oxygen Delivery Method Nasal Cannula Equipment Usage Equipment in Use Continuous SpO2 Machine # 11 Intake & Output 12/07/17 12/08/17 12/09/17 06:59 06:59 06:59 Intake Total 1235 2355 523 Output Total 2425 1800 775 Balance -1190 555 -252 Weight 164 kg 164.5 kg General appearance: PRESENT: no acute distress, morbidly obese Eye exam: PRESENT: PERRLA Respiratory exam: PRESENT: clear to auscultation mona Cardiovascular exam: PRESENT: +S1, +S2 GI/Abdominal exam: PRESENT: soft Neurological exam: PRESENT: alert, CN II-XII grossly intact Results Laboratory Results: 12/05/17 04:23 12/05/17 04:23 12/02/17 12/02/17 12/02/17 04:07 04:07 06:33 Creatine Kinase Cancelled CK-MB (CK-2) Cancelled 0.72 Troponin I Cancelled 0.042 12/02/17 12/02/17 12/02/17 06:33 10:01 10:01 Creatine Kinase 43 L 34 L CK-MB (CK-2) 0.63 Troponin I 0.032 12/02/17 12/02/17 15:45 15:45 Creatine Kinase 32 L CK-MB (CK-2) 0.44 Troponin I 0.031 Impressions: Chest X-Ray 12/01/17 21:40 FINDINGS/IMPRESSION: Normal cardiomediastinal silhouette. Lungs are clear. No pleural effusion or pneumothorax is seen. Chronic deformity of the left clavicle, present on radiograph from 2013. Assessment & Plan - Diagnosis (1) Respiratory failure with hypercapnia Qualifiers: Chronicity: acute on chronic Qualified Code(s): J96.22 - Acute and chronic respiratory failure with hypercapnia Is this a current diagnosis for this admission?: Yes (2) Congestive heart failure Qualifiers: Heart failure type: combined systolic and diastolic Heart failure chronicity: acute Qualified Code(s): I50.41 - Acute combined systolic ( congestive) and diastolic (congestive) heart failure Is this a current diagnosis for this admission?: Yes (3) Morbid obesity Is this a current diagnosis for this admission?: Yes
[2017-12-08] MEDS: LIVALO 2 MG PO SCH (21:29)
[2017-12-09] MEDS: IPRATROPIUM/ALBUTEROL 0.5-2.5 MG/3 ML AMPUL NEB SCH ×4 (00:12→13:03)
[2017-12-09] MEDS: OXYCODONE HCL IR 5 MG TABLET PO SCH ×2 (05:50→15:00)
--- NOTE | 2017-12-09 09:34 | PDOC DISCHARGE SUMMARY ---
General - Admit/Disc Date/PCP Admission Date/Primary Care Provider: 12/02/17 02:45 SONG BENNETT MD Discharge Date: 12/09/17 - Discharge Diagnosis (1) Hypercapnic respiratory failure Is this a current diagnosis for this admission?: Yes Summary: Currently all improving continues Trilogy deviceAt home Encourage the patient's to continues use every day discussed with the patient and the family (2) COPD (chronic obstructive pulmonary disease) Is this a current diagnosis for this admission?: Yes Summary: Continues to nebulizer treatments (3) Congestive heart failure Is this a current diagnosis for this admission?: Yes Summary: Continues the current medications (4) Fall Is this a current diagnosis for this admission?: Yes Summary: Arrange the physical therapy at home (5) Hypertension Is this a current diagnosis for this admission?: Yes Summary: Continues to current medication (6) Recurrent deep vein thrombosis (DVT) Is this a current diagnosis for this admission?: Yes Summary: Patient's currently denied any symptoms patient have IVC filter (7) Sleep apnea Is this a current diagnosis for this admission?: Yes Summary: Currently using the CPAP but patient was very noncompliance very extensive discussed with the patient and the family to understand that without using the CPAP patient have a more issues (8) Obesity Is this a current diagnosis for this admission?: Yes (9) Constipation Is this a current diagnosis for this admission?: Yes Summary: Patient is on a chronic pain medications for the pain management consider Movantik (10) Low back pain Is this a current diagnosis for this admission?: Yes Summary: Follow outpatients pain management - Additional Information Discharge Diet: Cardiac, Diabetic Discharge Activity: Activity As Tolerated, Balance Activity w/Rest, Weigh Daily Home Medications: Aspirin [Adult Low Dose Aspirin EC] 81 mg PO Q12 08/29/17 Bumetanide [Bumex 1 mg Tablet] 1 mg PO BID 08/29/17 Carvedilol [Coreg 3.125 mg Tablet] 3.125 mg PO Q12 08/29/17 Linaclotide [Linzess] 290 mcg PO Q6AM 08/29/17 Metformin HCl [Glucophage XR 500 mg Tablet] 500 mg PO QPM 08/29/17 Naloxone HCl [Evzio] 0.4 mg INJ ASDIR PRN 08/29/17 Oxycodone HCl 7.5 mg PO Q4HP PRN MDD 3 TABS PER DAY 08/29/17 Albuterol Sulfate [Ventolin HFA MDI 18 GM] 1 puff IH Q8HP PRN 12/02/17 Cyclobenzaprine HCl 10 mg PO Q8 PRN 12/02/17 Pitavastatin Calcium [Livalo] 2 mg PO DAILY 12/02/17 History of Present Illness History of Present Illness: BRUCE KNOX is a 72 year old male This is a 72-year-old male with a history of the morbid obesity history of the sleep apnea not wearing the CPAP and history of the COPD with oxygen dependent history of the congestive heart failure history of the chronic DVT status post IVC filter unable to take the anticoagulations due to the ongoing bleeding issue stop by the [facility] 2 days back in the emergency department with a history of the fall and initial chest x-ray and any x-ray was all stable without any fracture patient was discharged home was noticed with the family that patient was yesterday underwent for the sleep and this morning patient had a difficult to wake him up and patient was brought to the emergency department but patient's PCO2 about 90 which consistence with the respiratory acidosis and a hypercapnic respiratory failure patient initially put on the BiPAP in response very well I saw the patient's the daughters at the bedside and the patient is able to open the eyes and patient's still confused but answers the questions Patients also see Dr. Guardado as outpatients for the heart failure As per discussed with the cardiology Dr. Rivas patient's currently does not have any heart issue most likely COPD and respiratory failure consult to Dr. Pastrana discussed with him adjust the BiPAP Is currently not in any acute distress on the BiPAP NPH and the CO2 is all improving Also discussed with the family the patient was coughing with greenish sputum discharge for the last 3-4 days No fever no chills Hospital Course Hospital Course: This is a 72-year-old male basically are present in the emergency department with altered mental status and patient's PCO2 level about 90 which is most likely related to the respiratory failure on chronic COPD sleep apnea and hypoventilation syndromes and a noncompliance with the CPAP Patient initially put on the BiPAP and admitting in the IMCU and consult the pulmonary Patient's response very well with that patient's PCO2 level coming down to below 60 Since back to the baseline's with the more alert awake oriented x3 And have other chronic issue with the chronic back pain currently see a pain management and several pain medications and discussed with the patient and the family to discuss the pain management for further evaluations try to cut down the medications Patient's also ongoing constipation issue which is most related to the pain medications which adjust the medications Patient's otherwise seen by the cardiology no sign of any heart failure at this point continues to current medications Patient expressed to go home discharge home with a stable conditions patients fully back to the baseline's other medical problem was all stable patient is discharged home with the home health and physical therapy Physical Exam Vital Signs: Temp Pulse Resp BP Pulse Ox 97.9 F 74 16 119/45 L 97 12/09/17 07:23 12/09/17 08:19 12/09/17 08:19 12/09/17 07:23 12/09/17 08:19 Pulse Oximeter Continuous Start: 12/02/17 08: 51 Freq: RTQ4 Status: Active Document 12/09/17 08:19 JDR (Rec: 12/09/17 08:25 JDR [id number]) Pulse Oximetry Assessment Oxygen Saturation (92-100) 97 Oxygen Flow Rate (L/min) 2 Oxygen Delivery Method Nasal Cannula Equipment Usage Equipment in Use Continuous SpO2 Machine # 11 Intake & Output 12/08/17 12/09/17 12/10/17 06:59 06:59 06:59 Intake Total 2355 3115 Output Total 1800 3525 Balance 555 -410 Weight 164.5 kg 165.9 kg General appearance: PRESENT: no acute distress, well-developed, well-nourished Head exam: PRESENT: atraumatic, normocephalic Eye exam: PRESENT: conjunctiva pink, EOMI, PERRLA. ABSENT: scleral icterus Ear exam: PRESENT: normal external ear exam Mouth exam: PRESENT: moist, tongue midline Neck exam: PRESENT: full ROM. ABSENT: carotid bruit, JVD, lymphadenopathy, thyromegaly Respiratory exam: PRESENT: clear to auscultation mona Cardiovascular exam: PRESENT: RRR. ABSENT: diastolic murmur, rubs, systolic murmur Pulses: PRESENT: normal dorsalis pedis pul, +2 pedal pulses bilateral Vascular exam: PRESENT: normal capillary refill GI/Abdominal exam: PRESENT: normal bowel sounds, soft. ABSENT: distended, guarding, mass, organolmegaly, rebound, tenderness Rectal exam: PRESENT: deferred Extremities exam: ABSENT: pedal edema Musculoskeletal exam: PRESENT: ambulatory Neurological exam: PRESENT: alert, awake, oriented to person, oriented to place , oriented to time, oriented to situation, CN II-XII grossly intact. ABSENT: motor sensory deficit Psychiatric exam: PRESENT: appropriate affect, normal mood. ABSENT: homicidal ideation, suicidal ideation Skin exam: PRESENT: dry, intact, warm. ABSENT: cyanosis, rash Results Laboratory Results: 12/05/17 04:23 12/05/17 04:23 12/02/17 12/02/17 12/02/17 04:07 04:07 06:33 Creatine Kinase Cancelled CK-MB (CK-2) Cancelled 0.72 Troponin I Cancelled 0.042 12/02/17 12/02/17 12/02/17 06:33 10:01 10:01 Creatine Kinase 43 L 34 L CK-MB (CK-2) 0.63 Troponin I 0.032 12/02/17 12/02/17 15:45 15:45 Creatine Kinase 32 L CK-MB (CK-2) 0.44 Troponin I 0.031 Impressions: Chest X-Ray 12/01/17 21:40 FINDINGS/IMPRESSION: Normal cardiomediastinal silhouette. Lungs are clear. No pleural effusion or pneumothorax is seen. Chronic deformity of the left clavicle, present on radiograph from 2013. Qualifiers - * PATIENT BEING DISCHARGED WITH ANY OF THE FOLLOWING DIAGNOSIS: No VTE patient discharged on overlapping Therapy?: Yes Plan Time Spent: Greater than 30 Minutes - Patient is discharged home with a stable conditions and follow outpatient Patient see a pain management
[2017-12-09] MEDS: BUMETANIDE 1 MG TABLET PO SCH (10:57)
[2017-12-09] MEDS: LACTULOSE SYRUP 20 GM/30 ML UDCUP PO SCH (10:58)
[2017-12-09] MEDS: DOCUSATE SODIUM 100 MG CAPSULE PO SCH (10:58)
[2017-12-09] MEDS: CARVEDILOL 3.125 MG TABLET PO SCH (10:58)
[2017-12-09] MEDS: ASPIRIN 81 MG TABLET, ENT COATED PO SCH (10:58)
[2017-12-09] MEDS: POLYETHYLENE GLYCOL 3350 POWDER 17 GM/1 PACKET PO PRN (10:59)
[2017-12-09] MEDS: METFORMIN HCL 500 MG TABLET PO SCH (10:59)
[2017-12-09] MEDS: ENOXAPARIN SODIUM INJ 40 MG/0.4 ML DISP.SYRIN SUBCUT SCH (10:59)
--- NOTE | 2017-12-09 13:20 | PDOC PROGRESS REPORT ---
Subjective Progress Note for:: 12/09/17 Subjective:: W/O COMPLAINTS Reason For Visit: RESPIRATORY FAILURE Physical Exam Vital Signs: Temp Pulse Resp BP Pulse Ox 98.1 F 84 14 144/72 H 99 12/09/17 11:31 12/09/17 11:31 12/09/17 11:31 12/09/17 11:31 12/09/17 11:31 Pulse Oximeter Continuous Start: 12/02/17 08: 51 Freq: RTQ4 Status: Active Document 12/09/17 08:19 JDR (Rec: 12/09/17 08:25 JDR [id number]) Pulse Oximetry Assessment Oxygen Saturation (92-100) 97 Oxygen Flow Rate (L/min) 2 Oxygen Delivery Method Nasal Cannula Equipment Usage Equipment in Use Continuous SpO2 Machine # 11 Intake & Output 12/08/17 12/09/17 12/10/17 06:59 06:59 06:59 Intake Total 2355 3115 946 Output Total 1800 3525 150 Balance 555 -410 796 Weight 164.5 kg 165.9 kg General appearance: PRESENT: no acute distress, cooperative, disheveled, morbidly obese Head exam: PRESENT: atraumatic, normocephalic Eye exam: PRESENT: conjunctiva pale, EOMI. ABSENT: nystagmus, scleral icterus Mouth exam: PRESENT: dry mucosa, neck supple, tongue midline Neck exam: ABSENT: carotid bruit, JVD, lymphadenopathy, thyromegaly, tracheal deviation, tracheostomy Respiratory exam: PRESENT: decreased breath sounds, prolonged expiratory phas, rhonchi, unlabored. ABSENT: retraction, stridor, tachypnea Cardiovascular exam: PRESENT: RRR, +S1, +S2 Pulses: PRESENT: normal radial pulses GI/Abdominal exam: PRESENT: soft. ABSENT: tenderness Extremities exam: ABSENT: calf tenderness, clubbing, joint swelling Musculoskeletal exam: ABSENT: deformity, dislocation Neurological exam: PRESENT: alert, awake Psychiatric exam: PRESENT: normal mood Skin exam: PRESENT: dry, warm Results Laboratory Results: 12/05/17 04:23 12/05/17 04:23 12/02/17 12/02/17 12/02/17 04:07 04:07 06:33 Creatine Kinase Cancelled CK-MB (CK-2) Cancelled 0.72 Troponin I Cancelled 0.042 12/02/17 12/02/1718 06:33 10:01 10:01 Creatine Kinase 43 L 34 L CK-MB (CK-2) 0.63 Troponin I 0.032 12/02/17 12/02/17 15:45 15:45 Creatine Kinase 32 L CK-MB (CK-2) 0.44 Troponin I 0.031 Impressions: Chest X-Ray 12/01/17 21:40 FINDINGS/IMPRESSION: Normal cardiomediastinal silhouette. Lungs are clear. No pleural effusion or pneumothorax is seen. Chronic deformity of the left clavicle, present on radiograph from 2013. Assessment & Plan - Diagnosis (1) Hypercapnic respiratory failure Qualifiers: Chronicity: acute Qualified Code(s): J96.02 - Acute respiratory failure with hypercapnia Is this a current diagnosis for this admission?: Yes Plan: The above patient has failed BiPAP. This patient would benefit from noninvasive mechanical ventilation via the trilogy AVAPS/AE and faster responding AVAPS rates. The trilogy is able to provide a target tidal volume and also adjusting the EPAP pressures to maintain a patent airway as well as an oral backup rate this machine will help improve PaCO2 levels. The severity of the patient's condition will lead to future hospitalizations and readmissions as well as life-threatening situations without the use of this device trilogy home vent needed for hypercapnic respiratory failure. [facility] or [facility] [place] to follow for trilogy set up. (2) Morbid obesity Is this a current diagnosis for this admission?: Yes (3) COPD (chronic obstructive pulmonary disease) Qualifiers: COPD type: unspecified COPD Qualified Code(s): J44.9 - Chronic obstructive pulmonary disease, unspecified Is this a current diagnosis for this admission?: Yes Plan: Patient is at or near baseline (4) Sleep apnea Qualifiers: Sleep apnea type: unspecified type Qualified Code(s): G47.30 - Sleep apnea , unspecified Is this a current diagnosis for this admission?: Yes Plan: NIPPV
[2017-12-09 15:49] VITALS: BP 142/66
== END 2017-12-09 16:33 | disposition home health service (06) | DRG 189 ==
LOC: ER 20:39 → EH 12-02 02:45 → 3N 12-02 05:05 → 3S 12-07 18:37
PROVIDERS: ADMIT Internal Medicine Geriatric Medicine; ATTEND Family Medicine
PROC: 5A09457 Assistance with Respiratory Ventilation, 24-96 Consecutive Hours, Continuous Positive Airway Pressure (ICD-10-PCS; principal; 2017-12-01)
PROC: 3E0F73Z Introduction of Anti-inflammatory into Respiratory Tract, Via Natural or Artificial Opening (ICD-10-PCS; 2017-12-02)
DX: J96.02 Acute respiratory failure with hypercapnia (principal); I50.41 Acute combined systolic (congestive) and diastolic (congestive) heart failure; Z68.42 Body mass index [BMI] 45.0-49.9, adult; I82.509 Chronic embolism and thrombosis of unspecified deep veins of unspecified lower extremity; E66.2 Morbid (severe) obesity with alveolar hypoventilation; I11.0 Hypertensive heart disease with heart failure; J44.9 Chronic obstructive pulmonary disease, unspecified; W19.XXXA Unspecified fall, initial encounter; K59.00 Constipation, unspecified; M54.5 Low back pain; G89.29 Other chronic pain; E11.9 Type 2 diabetes mellitus without complications; K21.9 Gastro-esophageal reflux disease without esophagitis; M19.90 Unspecified osteoarthritis, unspecified site; M95.8 Other specified acquired deformities of musculoskeletal system; Z79.899 Other long term (current) drug therapy; Z99.81 Dependence on supplemental oxygen; Z91.19 Patient's noncompliance with other medical treatment and regimen; Z88.6 Allergy status to analgesic agent; Z91.018 Allergy to other foods; Z82.49 Family history of ischemic heart disease and other diseases of the circulatory system; Z80.9 Family history of malignant neoplasm, unspecified
CPT/HCPCS: 36415; 36600; 71045; 80048; 80053; 82550; 82553; 82803; 82962; 83880; 84484; 85025; 87040; 87086; 87205; 93005; 93010; 94660; 94762; 99285; G8978-GP; G8979-GP; J0692; J1650; J1815; J2930; J3490; J7620

== ENCOUNTER → 2018-06-12 | Outpatient (CLI) | payer MEDICARE, MEDICAID ==
--- NOTE | 2018-06-12 13:55 | RADIOLOGY REPORT (SQ) ---
EXAM DESCRIPTION: CHEST PA/LATERAL COMPLETED DATE/TIME: 06/12/2018 1:07 pm REASON FOR STUDY: CHRONIC SYSTOLIC (CONGESTIVE) HEART FAILURE,COPD UNSPEC COMPARISON: 01/12/2014 EXAM PARAMETERS: NUMBER OF VIEWS: two views TECHNIQUE: Digital Frontal and Lateral radiographic views of the chest acquired. RADIATION DOSE: NA LIMITATIONS: none FINDINGS: LUNGS AND PLEURA: No opacities, masses or pneumothorax. No pleural effusion. MEDIASTINUM AND HILAR STRUCTURES: No masses or contour abnormalities. HEART AND VASCULAR STRUCTURES: Heart normal size. No evidence for failure. BONES: No acute findings. HARDWARE: None in the chest. OTHER: No other significant finding. IMPRESSION: NO SIGNIFICANT RADIOGRAPHIC FINDING IN THE CHEST. TECHNICAL DOCUMENTATION: JOB ID: [id number] [employer]- All Rights Reserved Reading location - IP/workstation name: [email or web address]
== END ==
LOC: OD 12:44
PROVIDERS: ATTEND Family Medicine
DX: I50.22 Chronic systolic (congestive) heart failure (principal); J44.9 Chronic obstructive pulmonary disease, unspecified
CPT/HCPCS: 71046